=== PATIENT | female | born 1955 | race Two or more races ===

== ENCOUNTER 2018-05-15 17:00 | Inpatient (IN) | payer MEDICAID ==
[~2018-05-15] VITALS: Ht 162.6 cm; Wt 73.9 kg
[2018-05-15] MEDS ORDERED: LORazepam Inj 2mg/ml 1ml IV ONE (17:30)
[2018-05-15 18:12] LABS: APPEARANCE,URINE SLIGHTLY CLOUDY; BILIRUBIN, URINE NEGATIVE (NEGATIVE); COLOR,URINE AMBER; GLUCOSE, URINE (UA) NEGATIVE (NEGATIVE); KETONES,URINE NEGATIVE (NEGATIVE); LEUKOCYTE ESTERASE ,URINE 1+ (NEGATIVE); NITRITE,URINE NEGATIVE (NEGATIVE); PH,URINE 6.5 (4.5-8.0); PROTEIN,URINE NEGATIVE (NEGATIVE); UROBILINOGEN,URINE 1 MG/DL (0.0-1.0)
[2018-05-15 18:16] LABS: BASOPHILS % (AUTO) 1.7 % (0.0-2.0); EOSINOPHILS % (AUTO) 4.9 % (0.0-3.0); HEMOGLOBIN 9.6 G/DL (12.0-16.0); LYMPHOCYTES % (AUTO) 21.8 % (20.0-45.0); MEAN CORPUSCULAR VOLUME 78 FL (80-99); NEUTROPHILS % (AUTO) 63.6 % (45.0-75.0); PLATELET COUNT 728 K/UL (150-450); RED BLOOD COUNT 3.86 M/UL (4.20-5.40); RED CELL DISTRIBUTION WIDTH 17.8 % (11.6-14.8); WHITE BLOOD COUNT 10.4 K/UL (4.8-10.8)
[2018-05-15 18:23] LABS: ANION GAP 8 mmol/L (5-15); BLOOD UREA NITROGEN 7 mg/dL (7-18); CALCIUM 8.7 MG/DL (8.5-10.1); CARBON DIOXIDE 25 MMOL/L (21-32); CHLORIDE 104 MMOL/L (98-107); CREATININE 0.8 MG/DL (0.55-1.30); SODIUM 137 MMOL/L (136-145)
[2018-05-15 18:29] LABS: ALANINE AMINOTRANSFERASE 17 U/L (12-78); ALBUMIN 3.2 G/DL (3.4-5.0); ALBUMIN/GLOBULIN RATIO 0.7 (1.0-2.7); ALKALINE PHOSPHATASE 125 U/L (46-116); ASPARTATE AMINO TRANSFERASE 10 U/L (15-37); BILIRUBIN,TOTAL 0.4 MG/DL (0.2-1.0)
[2018-05-15 19:10] VITALS: BP 145/71
[2018-05-15] MEDS ORDERED: Solu-MEDROL 125mg Inj IVP ONE (19:15)
[2018-05-15] MEDS ORDERED: Ketorolac 30mg Inj IV ONE (19:15)
--- NOTE | 2018-05-15 19:20 | Diagnostic Imaging Report ---
EXAM: CT Head Without Intravenous Contrast CLINICAL HISTORY: WEAK TECHNIQUE: Axial computed tomography images of the head/brain without intravenous contrast. CTDI is 0.15, 70.38 mGy and DLP is 1439 mGy-cm. One or more of the following dose reduction techniques were used: automated exposure control, adjustment of the mA and/or kV according to patient size, use of iterative reconstruction technique. COMPARISON: No relevant prior studies available. FINDINGS: Brain: No CT evidence for acute cortical infarct, however, MRI is more sensitive for the detection of acute ischemic infarct. There is a 3.2 x 4.0 cm prominent CSF space in the left occipital lobe. This may be related to an arachnoid cyst. Differential diagnostic considerations include an area of encephalomalacia. Areas of decreased density in the periventricular white matter which are nonspecific but are likely related to mild small vessel ischemic changes. Small areas of encephalomalacia are suspected in the cerebellum bilaterally. No hemorrhage. Ventricles: Unremarkable. No ventriculomegaly. Bones/joints: Unremarkable. No acute fracture. Soft tissues: Unremarkable. Sinuses: Unremarkable as visualized. No acute sinusitis. Mastoid air cells: Unremarkable as visualized. No mastoid effusion. IMPRESSION: 1. No CT evidence for acute cortical infarct, however, MRI is more sensitive for the detection of acute ischemic infarct. 2. There is a 3.2 x 4.0 cm prominent CSF space in the left occipital lobe. This may be related to an arachnoid cyst. Differential diagnostic considerations include an area of encephalomalacia. 3. Probable small vessel ischemic changes in the periventricular white matter. Small areas of encephalomalacia in the cerebellum bilaterally.
[2018-05-15] MEDS ORDERED: Morphine Sulfate 4mg/ml Inj (IV USE ONLY) IVP ONE (19:45)
[2018-05-15] MEDS ORDERED: Morphine Sulfate 4mg/ml Inj (IV USE ONLY) ONE (22:26)
[2018-05-15 23:00] VITALS: BP 126/81
--- NOTE | 2018-05-15 23:07 | Emergency Room Report ---
History of Present Illness General Chief Complaint: Generalized Weakness Source: Patient Present Illness HPI 63-year-old female presents ED for evaluation. States that she's been feeling weak and has generalized pain in her joints. For several days. History of rheumatoid arthritis. States this feels like a flareup of her rheumatoid arthritis. Pain is 10 out of 10, sharp, nonradiating. Also feels anxious. Denies chest pain or shortness of breath. Denies fevers or chills. No other aggravating relieving factors. Denies any other associated symptoms Allergies: Coded Allergies: No Known Allergies (Unverified , 05/15/18) Patient History Past Medical History: none Past Surgical History: none Pertinent Family History: none Social History: Denies: smoking, alcohol use, drug use Now: No Immunizations: UTD Reviewed Nursing Documentation: PMH: Agreed; PSxH: Agreed Nursing Documentation-PMH Past Medical History: No History, Except For Review of Systems All Other Systems: negative except mentioned in HPI Physical Exam Vital Signs Date Time Temp Pulse Resp B/P (MAP) Pulse Ox O2 Delivery O2 Flow Rate FiO2 05/15/18 17:02 98.1 101 16 152/83 98 Room Air 98.1 Sp02 EP Interpretation: reviewed, normal General Appearance: no apparent distress, alert, GCS 15, non-toxic Head: normocephalic, atraumatic Eyes: bilateral eye normal inspection, bilateral eye PERRL ENT: hearing grossly normal, normal pharynx, no angioedema, normal voice Neck: full range of motion, supple/symm/no masses Respiratory: chest non-tender, lungs clear, normal breath sounds, speaking full sentences Cardiovascular #1: regular rate, rhythm, no edema Cardiovascular #2: 2+ carotid (R), 2+ carotid (L), 2+ radial (R), 2+ radial (L) , 2+ dorsalis pedis (R), 2+ dorsalis pedis (L) Gastrointestinal: normal bowel sounds, non tender, soft, non-distended, no guarding, no rebound Rectal: deferred Genitourinary: normal inspection, no CVA tenderness Musculoskeletal: back normal, normal range of motion, swelling, tender Neurologic: alert, oriented x3, 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, 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 After initial history and physical I ordered labs, IV fluids, UA, pain medication and CT scan Labs - no leukocytosis, Hb/Hct stable. electrolytes ok. CT head - encephalomalacia, no acute process Patient given pain medications, steroids but still continues to have pain and unable to walk Case discussed with Dr. Lawson and he agreed to accept the patient to his service for further care and support I feel this is a highly complex case requiring extensive working including EKG/ Rhythm strip, Xray/CT/US, Blood/urine lab work, repeat exams while in ED, and administration of strong opiates/narcotics for pain control, admission to hospital or close patient follow up. Diagnosis -weakness, rheumatoid arthritis flare Patient admitted to floor in serious condition Labs Test 05/15/18 17:30 05/15/18 18:00 White Blood Count 10.4 K/UL (4.8-10.8) Red Blood Count 3.86 M/UL (4.20-5.40) Hemoglobin 9.6 G/DL (12.0-16.0) Hematocrit 30.0 % (37.0-47.0) Mean Corpuscular Volume 78 FL (80-99) Mean Corpuscular Hemoglobin 25.0 PG (27.0-31.0) Mean Corpuscular Hemoglobin Concent 32.1 G/DL (32.0-36.0) Red Cell Distribution Width 17.8 % (11.6-14.8) Platelet Count 728 K/UL (150-450) Mean Platelet Volume 4.9 FL (6.5-10.1) Neutrophils (%) (Auto) 63.6 % (45.0-75.0) Lymphocytes (%) (Auto) 21.8 % (20.0-45.0) Monocytes (%) (Auto) 8.0 % (1.0-10.0) Eosinophils (%) (Auto) 4.9 % (0.0-3.0) Basophils (%) (Auto) 1.7 % (0.0-2.0) Sodium Level 137 MMOL/L (136-145) Potassium Level 4.0 MMOL/L (3.5-5.1) Chloride Level 104 MMOL/L (98-107) Carbon Dioxide Level 25 MMOL/L (21-32) Anion Gap 8 mmol/L (5-15) Blood Urea Nitrogen 7 mg/dL (7-18) Creatinine 0.8 MG/DL (0.55-1.30) Estimat Glomerular Filtration Rate > 60 mL/min (>60) Glucose Level 116 MG/DL (74-106) Calcium Level 8.7 MG/DL (8.5-10.1) Total Bilirubin 0.4 MG/DL (0.2-1.0) Aspartate Amino Transf (AST/SGOT) 10 U/L (15-37) Alanine Aminotransferase (ALT/SGPT) 17 U/L (12-78) Alkaline Phosphatase 125 U/L (46-116) Total Protein 7.5 G/DL (6.4-8.2) Albumin 3.2 G/DL (3.4-5.0) Globulin 4.3 g/dL Albumin/Globulin Ratio 0.7 (1.0-2.7) Salicylates Level 5.7 ug/mL (2.8-20) Acetaminophen Level < 2 MCG/ML (10-30) Serum Alcohol < 3 mg/dL Urine Color Mary Kay Urine Appearance Slightly cloudy Urine pH 6.5 (4.5-8.0) Urine Specific [place] 1.010 (1.005-1.035) Urine Protein Negative (NEGATIVE) Urine Glucose (UA) Negative (NEGATIVE) Urine Ketones Negative (NEGATIVE) Urine Blood Negative (NEGATIVE) Urine Nitrite Negative (NEGATIVE) Urine Bilirubin Negative (NEGATIVE) Urine Ictotest Negative (NEGATIVE) Urine Urobilinogen 1 MG/DL (0.0-1.0) Urine Leukocyte Esterase 1+ (NEGATIVE) Urine RBC 0 /HPF (0 - 2) Urine WBC 5-10 /HPF (0 - 2) Urine Squamous Epithelial Cells Moderate /LPF (NONE/OCC) Urine Bacteria Few /HPF (NONE) Urine Opiates Screen Negative (NEGATIVE) Urine Barbiturates Screen Negative (NEGATIVE) Phencyclidine (PCP) Screen Negative (NEGATIVE) Urine Amphetamines Screen Negative (NEGATIVE) Urine Benzodiazepines Screen Negative (NEGATIVE) Urine Cocaine Screen Negative (NEGATIVE) Urine Marijuana (THC) Screen Negative (NEGATIVE) CT/MRI/US Diagnostic Results CT/MRI/US Diagnostic Results : Imaging Test Ordered: CT Head Impression 1. No CT evidence for acute cortical infarct, however, MRI is more sensitive for the detection of acute ischemic infarct. 2. There is a 3.2 x 4.0 cm prominent CSF space in the left occipital lobe. This may be related to an arachnoid cyst. Differential diagnostic considerations include an area of encephalomalacia. 3. Probable small vessel ischemic changes in the periventricular white matter. Small areas of encephalomalacia in the cerebellum bilaterally. Last Vital Signs Date Time Temp Pulse Resp B/P (MAP) Pulse Ox O2 Delivery O2 Flow Rate FiO2 05/15/18 19:13 98.1 05/15/18 17:02 101 16 152/83 98 Room Air Status: improved Disposition: ADMITTED INPATIENT Condition: Serious Referrals: [facility],REFERRING (PCP) Aurelio Ramsay MD May 15, 2018 23:07
[2018-05-15] MEDS ORDERED: COMBIVENT RESPIM4 GM IH (23:17)
[2018-05-15] MEDS ORDERED: HYDROXYCHLOROQ200 M1 PO (23:17)
[2018-05-15] MEDS ORDERED: METHOTREXATE2.5 MG PO (23:17)
[2018-05-15] MEDS ORDERED: LIPITOR10 MG ORAL (23:17)
[2018-05-15] MEDS ORDERED: CLOPIDOGREL75 MG ORAL (23:17)
[2018-05-15] MEDS ORDERED: FLUTICASONE PRO16 G1 NASAL (23:17)
[2018-05-15] MEDS ORDERED: METFORMIN HCL1000 M1 ORAL (23:17)
[2018-05-15] MEDS ORDERED: AMITRIPTYLINE100 MG ORAL (23:17)
[2018-05-15] MEDS ORDERED: FOLIC ACID1 MG ORAL (23:17)
[2018-05-15] MEDS ORDERED: NORCO 5-325 TA1 EACH ORAL (23:20)
[2018-05-16] VITALS: BP 135/83
[2018-05-16] MEDS ORDERED: Amitriptyline 100mg tab ORAL SCH
[2018-05-16] MEDS: Heparin 5000 units/ml inj SUBQ SCH ×3 (00:27→21:16)
[2018-05-16] MEDS: Morphine Sulfate 2mg/ml Inj IVP PRN ×3 (00:32→22:36)
[2018-05-16 04:00] VITALS: BP 147/87
[2018-05-16] MEDS: NovoLOG Insulin Flexpen SUBQ SCH ×4 (06:16→21:17)
[2018-05-16 08:07] LABS: BASOPHILS % (AUTO) 0.6 % (0.0-2.0); HEMATOCRIT 29.7 % (37.0-47.0); HEMOGLOBIN 9.1 G/DL (12.0-16.0); LYMPHOCYTES % (AUTO) 15.3 % (20.0-45.0); MEAN CORPUSCULAR VOLUME 75 FL (80-99); MONOCYTES % (AUTO) 0.9 % (1.0-10.0); NEUTROPHILS % (AUTO) 83.3 % (45.0-75.0); PLATELET COUNT 670 K/UL (150-450); RED BLOOD COUNT 3.94 M/UL (4.20-5.40); RED CELL DISTRIBUTION WIDTH 18.2 % (11.6-14.8); WHITE BLOOD COUNT 5.7 K/UL (4.8-10.8)
[2018-05-16 08:54] VITALS: BP 137/78
[2018-05-16] MEDS ORDERED: TREXALL5 MG PO (08:59)
[2018-05-16] MEDS: Flonase Nasal Inhaler 16gm NASAL SCH (09:50)
[2018-05-16] MEDS: Norco 5mg/325mg tab ORAL PRN ×3 (09:51→21:20)
[2018-05-16 10:02] LABS: ANION GAP 10 mmol/L (5-15); BLOOD UREA NITROGEN 10 mg/dL (7-18); CALCIUM 8.7 MG/DL (8.5-10.1); CARBON DIOXIDE 23 MMOL/L (21-32); CHLORIDE 105 MMOL/L (98-107); CREATININE 0.8 MG/DL (0.55-1.30); POTASSIUM 4.4 MMOL/L (3.5-5.1); SODIUM 138 MMOL/L (136-145)
[2018-05-16] MEDS: Albuterol ud Inhalation HHN PRN (10:51)
[2018-05-16 12:00] VITALS: BP 120/69
[2018-05-16] MEDS ORDERED: Influenza Vaccine Quadrivalent 0.5ml IM ONE (12:00)
[2018-05-16] MEDS: Solu-MEDROL 40mg Inj IVP SCH ×2 (13:50→22:36)
--- NOTE | 2018-05-16 14:36 | History and Physical ---
History of Present Illness General Date patient seen: May 16, 2018 Time patient seen: 11:00 Reason for Hospitalization: Generalized Weakness Present Illness HPI 63 year old woman with history of RA, type 2 DM, history of stroke with residual right sided weakness who presents with 2-3 days of bilateral wrist and hand pain and swelling, similar to prior episodes of RA flare. She has responded to prednisone well in the past. Denies fever, chills, chest pain or palpitations. Symptoms improved partially with morphine given in ED. She was also treated with 125mg of IV Solu-Medrol. Allergies: Coded Allergies: No Known Allergies (Unverified , 05/15/18) Medication History Scheduled Amitriptyline HCl (Amitriptyline HCl), 75 MG ORAL BEDTIME, (Reported) Atorvastatin Calcium* (Lipitor*), 10 MG ORAL DAILY, (Reported) Clopidogrel* (Clopidogrel*), 75 MG ORAL DAILY, (Reported) Fluticasone Propionate* (Fluticasone Propionate*), 1 SPRAY NASAL DAILY, ( Reported) Folic Acid* (Folic Acid*), 1 MG ORAL DAILY, (Reported) Hydroxychloroquine Sulfate (Hydroxychloroquine Sulfate), 200 MG PO BID, ( Reported) Metformin Hcl* (Metformin Hcl*), 1,000 MG ORAL BID, (Reported) Methotrexate Sodium ([place]), 12.5 MG PO Q FRIDAY, (Reported) Scheduled PRN Hydrocodone Bit/Acetaminophen 5-325* ([place] 5-325*), 1 TAB ORAL Q4H PRN for For Pain, (Reported) Miscellaneous Medications Ipratropium/Albuterol Sulfate (Combivent Respimat Inhal [place]), 4 GM IH, ( Reported) Discontinued Medications Methotrexate Sodium* (Methotrexate*), 2.5 MG PO, (Reported) Discontinued Reason: Prescription changed Patient History History Provided By: Patient Healthcare decision maker Resuscitation status Full Code Advanced Directive on File Family History Family History: Father with DM Social History Social History: (1) Smoker Review of Systems Eye: Denies: eye pain ENT: Denies: nose pain Respiratory: Denies: cough, shortness of breath Cardiovascular: Denies: chest pain, palpitations Gastrointestinal: Denies: abdominal pain, constipation Genitourinary: Denies: discharge, dysuria Musculoskeletal: Reports: joint pain; Denies: back pain Skin: Denies: rash, change in hair/nails Neurological: Denies: headache, numbness Endocrine: Denies: excessive sweating, flushing Hematologic/Lymphatic: Denies: blood clots, easy bleeding, easy bruising Physical Exam General Appearance: no apparent distress, alert HEENT: normocephalic, atraumatic Neck: normal alignment, supple, normal inspection Respiratory/Chest: chest wall non-tender, lungs clear, normal breath sounds Cardiovascular/Chest: normal peripheral pulses, normal rate, regular rhythm Abdomen: normal bowel sounds, non tender, soft Extremities: no calf tenderness, no edema, no cyanosis 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, alert, oriented x 3, responsive Musculoskeletal: other - Bilateral MCP swelling and severe tenderness, decreased ROM Last 24 Hour Vital Signs Date Time Temp Pulse Resp B/P (MAP) Pulse Ox O2 Delivery O2 Flow Rate FiO2 05/16/18 12:00 97.5 95 18 120/69 (86) 96 97.5 05/16/18 09:00 Room Air 05/16/18 08:54 97.7 105 20 137/78 (97) 94 97.7 05/16/18 08:15 105 16 Room Air 05/16/18 04:00 97.8 113 18 147/87 (107) 96 97.8 05/16/18 01:30 Room Air 05/16/18 00:00 98.2 100 18 135/83 (100) 93 98.2 05/15/18 23:00 98.1 105 18 126/81 (96) 97 98.1 05/15/18 22:55 98.1 104 17 143/71 98 Room Air 208.6 05/15/18 19:13 98.1 05/15/18 19:10 98.1 103 17 145/71 98 Room Air 98.1 05/15/18 17:02 98.1 101 16 152/83 98 Room Air 98.1 Intake and Output 05/15/18 05/16/18 19:00 07:00 Intake Total 1700 ml Output Total 400 ml Balance 1300 ml Intake Oral 700 ml IV Total 1000 ml Output Urine Total 400 ml Laboratory Tests Test 05/15/18 17:30 05/15/18 18:00 05/16/18 07:00 White Blood Count 10.4 K/UL (4.8-10.8) 5.7 K/UL (4.8-10.8) Red Blood Count 3.86 M/UL (4.20-5.40) L 3.94 M/UL (4.20-5.40) L Hemoglobin 9.6 G/DL (12.0-16.0) L 9.1 G/DL (12.0-16.0) L Hematocrit 30.0 % (37.0-47.0) L 29.7 % (37.0-47.0) L Mean Corpuscular Volume 78 FL (80-99) L 75 FL (80-99) L Mean Corpuscular Hemoglobin 25.0 PG (27.0-31.0) L 23.2 PG (27.0-31.0) L Mean Corpuscular Hemoglobin Concent 32.1 G/DL (32.0-36.0) 30.8 G/DL (32.0-36.0) L Red Cell Distribution Width 17.8 % (11.6-14.8) H 18.2 % (11.6-14.8) H Platelet Count 728 K/UL (150-450) H 670 K/UL (150-450) H Mean Platelet Volume 4.9 FL (6.5-10.1) L 4.9 FL (6.5-10.1) L Neutrophils (%) (Auto) 63.6 % (45.0-75.0) 83.3 % (45.0-75.0) H Lymphocytes (%) (Auto) 21.8 % (20.0-45.0) 15.3 % (20.0-45.0) L Monocytes (%) (Auto) 8.0 % (1.0-10.0) 0.9 % (1.0-10.0) L Eosinophils (%) (Auto) 4.9 % (0.0-3.0) H 0.0 % (0.0-3.0) Basophils (%) (Auto) 1.7 % (0.0-2.0) 0.6 % (0.0-2.0) Sodium Level 137 MMOL/L (136-145) 138 MMOL/L (136-145) Potassium Level 4.0 MMOL/L (3.5-5.1) 4.4 MMOL/L (3.5-5.1) Chloride Level 104 MMOL/L (98-107) 105 MMOL/L (98-107) Carbon Dioxide Level 25 MMOL/L (21-32) 23 MMOL/L (21-32) Anion Gap 8 mmol/L (5-15) 10 mmol/L (5-15) Blood Urea Nitrogen 7 mg/dL (7-18) 10 mg/dL (7-18) Creatinine 0.8 MG/DL (0.55-1.30) 0.8 MG/DL (0.55-1.30) Estimat Glomerular Filtration Rate > 60 mL/min (>60) > 60 mL/min (>60) Glucose Level 116 MG/DL (74-106) H 210 MG/DL (74-106) H Calcium Level 8.7 MG/DL (8.5-10.1) 8.7 MG/DL (8.5-10.1) Total Bilirubin 0.4 MG/DL (0.2-1.0) Aspartate Amino Transf (AST/SGOT) 10 U/L (15-37) L Alanine Aminotransferase (ALT/SGPT) 17 U/L (12-78) Alkaline Phosphatase 125 U/L (46-116) H Total Protein 7.5 G/DL (6.4-8.2) Albumin 3.2 G/DL (3.4-5.0) L Globulin 4.3 g/dL Albumin/Globulin Ratio 0.7 (1.0-2.7) L Salicylates Level 5.7 ug/mL (2.8-20) Acetaminophen Level < 2 MCG/ML (10-30) L Serum Alcohol < 3 mg/dL Urine Color Mary Kay Urine Appearance Slightly cloudy Urine pH 6.5 (4.5-8.0) Urine Specific [place] 1.010 (1.005-1.035) Urine Protein Negative (NEGATIVE) Urine Glucose (UA) Negative (NEGATIVE) Urine Ketones Negative (NEGATIVE) Urine Blood Negative (NEGATIVE) Urine Nitrite Negative (NEGATIVE) Urine Bilirubin Negative (NEGATIVE) Urine Ictotest Negative (NEGATIVE) Urine Urobilinogen 1 MG/DL (0.0-1.0) H Urine Leukocyte Esterase 1+ (NEGATIVE) H Urine RBC 0 /HPF (0 - 2) Urine WBC 5-10 /HPF (0 - 2) H Urine Squamous Epithelial Cells Moderate /LPF (NONE/OCC) H Urine Bacteria Few /HPF (NONE) Urine Opiates Screen Negative (NEGATIVE) Urine Barbiturates Screen Negative (NEGATIVE) Phencyclidine (PCP) Screen Negative (NEGATIVE) Urine Amphetamines Screen Negative (NEGATIVE) Urine Benzodiazepines Screen Negative (NEGATIVE) Urine Cocaine Screen Negative (NEGATIVE) Urine Marijuana (THC) Screen Negative (NEGATIVE) Hemoglobin A1c 7.1 % (4.3-6.0) H Height (Feet): 5 Height (Inches): 4.00 Weight (Pounds): 163 Medications Current Medications Medications (Trade) Dose Ordered Sig/Ashlyn Route PRN Reason Start Time Stop Time Status Last Admin Dose Admin Acetaminophen (Tylenol) 650 mg Q4H PRN ORAL Mild Pain/Temp > 100.5 05/15/18 23:45 06/14/18 23:44 Acetaminophen/ Hydrocodone Bitart ([place] 5/325) 1 tab Q4H PRN ORAL Moderate Pain (Pain Scale 4-6) 05/15/18 23:45 05/22/18 23:44 Acetaminophen/ Hydrocodone Bitart ([place] 5/325) 2 tab Q4H PRN ORAL Severe Pain (Pain Scale 7-10) 05/15/18 23:45 05/22/18 23:44 05/16/18 13:52 Albuterol Sulfate (Proventil) 2.5 mg Q6H PRN HHN Shortness of Breath 05/16/18 03:30 05/21/18 03:29 05/16/18 10:51 Amitriptyline HCl (Elavil) 75 mg BEDTIME ORAL 05/16/18 00:00 06/15/18 00:00 05/16/18 00:26 Atorvastatin Calcium (Lipitor) 10 mg DAILY ORAL 05/16/18 09:00 06/15/18 08:59 05/16/18 09:51 Clopidogrel Bisulfate (Plavix) 75 mg DAILY ORAL 05/16/18 09:00 06/15/18 08:59 05/16/18 09:53 Dextrose (Dextrose 50%) 25 ml Q30M PRN IV Hypoglycemia 05/15/18 23:45 06/14/18 23:44 Dextrose (Dextrose 50%) 50 ml Q30M PRN IV Hypoglycemia 05/15/18 23:45 06/14/18 23:44 Fluticasone Propionate (Flonase) 1 spray DAILY NASAL 05/16/18 09:00 06/15/18 08:59 05/16/18 09:50 Folic Acid (Folate) 1 mg DAILY ORAL 05/16/18 09:00 06/15/18 08:59 05/16/18 09:52 Heparin Sodium (Porcine) (Heparin 5000 units/ml) 5,000 units EVERY 12 HOURS SUBQ 05/16/18 00:00 06/15/18 00:00 05/16/18 09:52 Hydroxychloroquine Sulfate (Plaquenil) 200 mg BID ORAL 05/16/18 09:00 06/15/18 08:59 05/16/18 09:50 Insulin Aspart (NovoLOG) BEFORE MEALS AND HS SUBQ 05/16/18 06:30 06/15/18 06:29 05/16/18 12:46 Methotrexate (metHOTREXate) 12.5 mg Sa@0900 ORAL 05/16/18 09:00 05/21/18 08:59 05/16/18 10:18 Methylprednisolone Sodium Succinate (Solu-MEDROL) 40 mg EVERY 12 HOURS IVP 05/16/18 14:00 06/15/18 13:59 05/16/18 13:50 Morphine Sulfate (Morphine Sulfate) 1 mg Q3H PRN IVP Severe Breakthru Pain (>7) 05/15/18 23:45 05/22/18 23:44 05/16/18 06:19 Assessment/Plan Problem List: (1) Flare of rheumatoid arthritis ICD Codes: M06.9 - Rheumatoid arthritis, unspecified SNOMED: [id number] Assessment/Plan Acute flare up of rheumatoid arthritis, admit to medical service for IV steroids. Start Solu-Medrol 40mg IV bid along with morphine prn for severe pain. PT/OT consult history of DM2, sugars likely will be uncontrolled due to steroids, will hold metformin and start lispro coverage. May need to start Lantus if worsening hyperglycemia history of CVA with mild chronic right sided weakness, continue Plavix current smoker, cessation advised, nicotine patch prn VTE PPx heparin SC Full Code Patient will require a hospitalization crossing 2 midnights in order to get IV steroids and close monitoring. Linus Nelson MD May 16, 2018 14:36
[2018-05-16 16:15] VITALS: BP 132/75
--- NOTE | 2018-05-16 17:07 | Consultation ---
Consult Note Consult Note HEMATOLOGY-ONCOLOGY CONSULTATION REQUESTING PHYSICIAN: Shaq Castañeda MD DATE OF CONSULTATION: 05/16/2018 REASON FOR CONSULTATION: Evaluation of anemia and thrombocytosis HPI 63 year old woman with history of RA, type 2 DM, history of stroke with residual right sided weakness who presents with 2-3 days of bilateral wrist and hand pain and swelling, similar to prior episodes of RA flare. She has responded to prednisone well in the past. Denies fever, chills, chest pain or palpitations. Symptoms improved partially with morphine given in ED. She was also treated with 125mg of IV Solu-Medrol. I have been consulted for the evaluation and management of anemia and thrombocytosis. Current hgb 9.1 and plt at 670. Will order anemia w/u, CML, and JAK2. Allergies: Coded Allergies: No Known Allergies (Unverified , 05/15/18) Medication History Scheduled Amitriptyline HCl (Amitriptyline HCl), 75 MG ORAL BEDTIME, (Reported) Atorvastatin Calcium* (Lipitor*), 10 MG ORAL DAILY, (Reported) Clopidogrel* (Clopidogrel*), 75 MG ORAL DAILY, (Reported) Fluticasone Propionate* (Fluticasone Propionate*), 1 SPRAY NASAL DAILY, ( Reported) Folic Acid* (Folic Acid*), 1 MG ORAL DAILY, (Reported) Hydroxychloroquine Sulfate (Hydroxychloroquine Sulfate), 200 MG PO BID, ( Reported) Metformin Hcl* (Metformin Hcl*), 1,000 MG ORAL BID, (Reported) Methotrexate Sodium (Trexall), 12.5 MG PO Q FRIDAY, (Reported) Scheduled PRN Hydrocodone Bit/Acetaminophen 5-325* (Royal 5-325*), 1 TAB ORAL Q4H PRN for For Pain, (Reported) Miscellaneous Medications Ipratropium/Albuterol Sulfate (Combivent Respimat Inhal [place]), 4 GM IH, ( Reported) Discontinued Medications Methotrexate Sodium* (Methotrexate*), 2.5 MG PO, (Reported) Discontinued Reason: Prescription changed Patient History History Provided By: Patient Healthcare decision maker Resuscitation status Full Code Advanced Directive on File Family History Family History: Father with DM Social History Social History: (1) Smoker Review of Systems Eye: Denies: eye pain ENT: Denies: nose pain Respiratory: Denies: cough, shortness of breath Cardiovascular: Denies: chest pain, palpitations Gastrointestinal: Denies: abdominal pain, constipation Genitourinary: Denies: discharge, dysuria Musculoskeletal: Reports: joint pain; Denies: back pain Skin: Denies: rash, change in hair/nails Neurological: Denies: headache, numbness Endocrine: Denies: excessive sweating, flushing Hematologic/Lymphatic: Denies: blood clots, easy bleeding, easy bruising Physical Exam General Appearance: no apparent distress, alert HEENT: normocephalic, atraumatic Neck: normal alignment, supple, normal inspection Respiratory/Chest: chest wall non-tender, lungs clear, normal breath sounds Cardiovascular/Chest: normal peripheral pulses, normal rate, regular rhythm Abdomen: normal bowel sounds, non tender, soft Extremities: no calf tenderness, no edema, no cyanosis 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, alert, oriented x 3, responsive Musculoskeletal: other - Bilateral MCP swelling and severe tenderness, decreased ROM Last 24 Hour Vital Signs Date Time Temp Pulse Resp B/P (MAP) Pulse Ox O2 Delivery O2 Flow Rate FiO2 05/16/18 12:00 97.5 95 18 120/69 (86) 96 97.5 05/16/18 09:00 Room Air 05/16/18 08:54 97.7 105 20 137/78 (97) 94 97.7 05/16/18 08:15 105 16 Room Air 05/16/18 04:00 97.8 113 18 147/87 (107) 96 97.8 05/16/18 01:30 Room Air 05/16/18 00:00 98.2 100 18 135/83 (100) 93 98.2 05/15/18 23:00 98.1 105 18 126/81 (96) 97 98.1 05/15/18 22:55 98.1 104 17 143/71 98 Room Air 208.6 05/15/18 19:13 98.1 05/15/18 19:10 98.1 103 17 145/71 98 Room Air 98.1 05/15/18 17:02 98.1 101 16 152/83 98 Room Air 98.1 Intake and Output 05/15/18 05/16/18 19:00 07:00 Intake Total 1700 ml Output Total 400 ml Balance 1300 ml Intake Oral 700 ml IV Total 1000 ml Output Urine Total 400 ml Laboratory Tests Test 05/15/18 17:30 05/15/18 18:00 05/16/18 07:00 White Blood Count 10.4 K/UL (4.8-10.8) 5.7 K/UL (4.8-10.8) Red Blood Count 3.86 M/UL (4.20-5.40) L 3.94 M/UL (4.20-5.40) L Hemoglobin 9.6 G/DL (12.0-16.0) L 9.1 G/DL (12.0-16.0) L Hematocrit 30.0 % (37.0-47.0) L 29.7 % (37.0-47.0) L Mean Corpuscular Volume 78 FL (80-99) L 75 FL (80-99) L Mean Corpuscular Hemoglobin 25.0 PG (27.0-31.0) L 23.2 PG (27.0-31.0) L Mean Corpuscular Hemoglobin Concent 32.1 G/DL (32.0-36.0) 30.8 G/DL (32.0-36.0) L Red Cell Distribution Width 17.8 % (11.6-14.8) H 18.2 % (11.6-14.8) H Platelet Count 728 K/UL (150-450) H 670 K/UL (150-450) H Mean Platelet Volume 4.9 FL (6.5-10.1) L 4.9 FL (6.5-10.1) L Neutrophils (%) (Auto) 63.6 % (45.0-75.0) 83.3 % (45.0-75.0) H Lymphocytes (%) (Auto) 21.8 % (20.0-45.0) 15.3 % (20.0-45.0) L Monocytes (%) (Auto) 8.0 % (1.0-10.0) 0.9 % (1.0-10.0) L Eosinophils (%) (Auto) 4.9 % (0.0-3.0) H 0.0 % (0.0-3.0) Basophils (%) (Auto) 1.7 % (0.0-2.0) 0.6 % (0.0-2.0) Sodium Level 137 MMOL/L (136-145) 138 MMOL/L (136-145) Potassium Level 4.0 MMOL/L (3.5-5.1) 4.4 MMOL/L (3.5-5.1) Chloride Level 104 MMOL/L (98-107) 105 MMOL/L (98-107) Carbon Dioxide Level 25 MMOL/L (21-32) 23 MMOL/L (21-32) Anion Gap 8 mmol/L (5-15) 10 mmol/L (5-15) Blood Urea Nitrogen 7 mg/dL (7-18) 10 mg/dL (7-18) Creatinine 0.8 MG/DL (0.55-1.30) 0.8 MG/DL (0.55-1.30) Estimat Glomerular Filtration Rate > 60 mL/min (>60) > 60 mL/min (>60) Glucose Level 116 MG/DL (74-106) H 210 MG/DL (74-106) H Calcium Level 8.7 MG/DL (8.5-10.1) 8.7 MG/DL (8.5-10.1) Total Bilirubin 0.4 MG/DL (0.2-1.0) Aspartate Amino Transf (AST/SGOT) 10 U/L (15-37) L Alanine Aminotransferase (ALT/SGPT) 17 U/L (12-78) Alkaline Phosphatase 125 U/L (46-116) H Total Protein 7.5 G/DL (6.4-8.2) Albumin 3.2 G/DL (3.4-5.0) L Globulin 4.3 g/dL Albumin/Globulin Ratio 0.7 (1.0-2.7) L Salicylates Level 5.7 ug/mL (2.8-20) Acetaminophen Level < 2 MCG/ML (10-30) L Serum Alcohol < 3 mg/dL Urine Color [place] Urine Appearance Slightly cloudy Urine pH 6.5 (4.5-8.0) Urine Specific [place] 1.010 (1.005-1.035) Urine Protein Negative (NEGATIVE) Urine Glucose (UA) Negative (NEGATIVE) Urine Ketones Negative (NEGATIVE) Urine Blood Negative (NEGATIVE) Urine Nitrite Negative (NEGATIVE) Urine Bilirubin Negative (NEGATIVE) Urine Ictotest Negative (NEGATIVE) Urine Urobilinogen 1 MG/DL (0.0-1.0) H Urine Leukocyte Esterase 1+ (NEGATIVE) H Urine RBC 0 /HPF (0 - 2) Urine WBC 5-10 /HPF (0 - 2) H Urine Squamous Epithelial Cells Moderate /LPF (NONE/OCC) H Urine Bacteria Few /HPF (NONE) Urine Opiates Screen Negative (NEGATIVE) Urine Barbiturates Screen Negative (NEGATIVE) Phencyclidine (PCP) Screen Negative (NEGATIVE) Urine Amphetamines Screen Negative (NEGATIVE) Urine Benzodiazepines Screen Negative (NEGATIVE) Urine Cocaine Screen Negative (NEGATIVE) Urine Marijuana (THC) Screen Negative (NEGATIVE) Hemoglobin A1c 7.1 % (4.3-6.0) H Height (Feet): 5 Height (Inches): 4.00 Weight (Pounds): 163 Medications Current Medications Medications (Trade) Dose Ordered Sig/Ashlyn Route PRN Reason Start Time Stop Time Status Last Admin Dose Admin Acetaminophen (Tylenol) 650 mg Q4H PRN ORAL Mild Pain/Temp > 100.5 05/15/18 23:45 06/14/18 23:44 Acetaminophen/ Hydrocodone Bitart (Royal 5/325) 1 tab Q4H PRN ORAL Moderate Pain (Pain Scale 4-6) 05/15/18 23:45 05/22/18 23:44 Acetaminophen/ Hydrocodone Bitart (Royal 5/325) 2 tab Q4H PRN ORAL Severe Pain (Pain Scale 7-10) 05/15/18 23:45 05/22/18 23:44 05/16/18 13:52 Albuterol Sulfate (Proventil) 2.5 mg Q6H PRN HHN Shortness of Breath 05/16/18 03:30 05/21/18 03:29 05/16/18 10:51 Amitriptyline HCl (Elavil) 75 mg BEDTIME ORAL 05/16/18 00:00 06/15/18 00:00 05/16/18 00:26 Atorvastatin Calcium (Lipitor) 10 mg DAILY ORAL 05/16/18 09:00 06/15/18 08:59 05/16/18 09:51 Clopidogrel Bisulfate (Plavix) 75 mg DAILY ORAL 05/16/18 09:00 06/15/18 08:59 05/16/18 09:53 Dextrose (Dextrose 50%) 25 ml Q30M PRN IV Hypoglycemia 05/15/18 23:45 11/4/18 23:44 Dextrose (Dextrose 50%) 50 ml Q30M PRN IV Hypoglycemia 05/15/18 23:45 06/14/18 23:44 Fluticasone Propionate (Flonase) 1 spray DAILY NASAL 05/16/18 09:00 06/15/18 08:59 05/16/18 09:50 Folic Acid (Folate) 1 mg DAILY ORAL 05/16/18 09:00 06/15/18 08:59 05/16/18 09:52 Heparin Sodium (Porcine) (Heparin 5000 units/ml) 5,000 units EVERY 12 HOURS SUBQ 05/16/18 00:00 06/15/18 00:00 05/16/18 09:52 Hydroxychloroquine Sulfate (Plaquenil) 200 mg BID ORAL 05/16/18 09:00 06/15/18 08:59 05/16/18 09:50 Insulin Aspart (NovoLOG) BEFORE MEALS AND HS SUBQ 05/16/18 06:30 06/15/18 06:29 05/16/18 12:46 Methotrexate (metHOTREXate) 12.5 mg Sa@0900 ORAL 05/16/18 09:00 05/21/18 08:59 05/16/18 10:18 Methylprednisolone Sodium Succinate (Solu-MEDROL) 40 mg EVERY 12 HOURS IVP 05/16/18 14:00 06/15/18 13:59 05/16/18 13:50 Morphine Sulfate (Morphine Sulfate) 1 mg Q3H PRN IVP Severe Breakthru Pain (>7) 05/15/18 23:45 05/22/18 23:44 05/16/18 06:19 Assessment/Plan # Anemia of iron deficiency or chronic disease. --> Anemia w/u has been ordered. --> currently no evidence of hemolysis noted --> Hgb goal above 7 # Thrombocytosis. Reactive process and will improve once exacerbant is removed. --> Will order JAK2, and peripheral smear --> Cont to monitor PLT count for improvement # RA flare up. Acute flare up of rheumatoid arthritis, admit to medical service for IV steroids --> Solu-Medrol 40mg IV bid along with morphine prn for severe pain. PT/OT consult # DM2, sugars likely will be uncontrolled due to steroids, will hold metformin and start lispro coverage. --> May need to start Lantus if worsening hyperglycemia # History of CVA with mild chronic right sided weakness, continue Plavix # Current smoker, cessation advised, nicotine patch prn I GREATLY APPRECIATE THE CONSULTATION. Lauro Cai MD May 16, 2018 17:06
[2018-05-16 20:00] VITALS: BP 137/71
[2018-05-16 22:24] LABS: % IRON SATURATION 9 % (15-50); IRON 25 ug/dL (50-175); TOTAL IRON BINDING CAPACITY 289 ug/dL (250-450)
[2018-05-16 23:23] LABS: FERRITIN 16 NG/ML (8-388)
[2018-05-17] VITALS (7 sets, daily range): BP systolic 130–158; BP diastolic 71–89
[2018-05-17] MEDS: Norco 5mg/325mg tab ORAL PRN ×4 (06:45→18:30)
[2018-05-17] MEDS: NovoLOG Insulin Flexpen SUBQ SCH ×4 (06:46→21:03)
[2018-05-17 07:25] LABS: HEMATOCRIT 28.8 % (37.0-47.0); HEMOGLOBIN 9.1 G/DL (12.0-16.0); MEAN CORPUSCULAR VOLUME 75 FL (80-99); PLATELET COUNT 711 K/UL (150-450); RED BLOOD COUNT 3.85 M/UL (4.20-5.40); RED CELL DISTRIBUTION WIDTH 18.2 % (11.6-14.8); WHITE BLOOD COUNT 16.8 K/UL (4.8-10.8)
[2018-05-17 07:54] LABS: ANION GAP 9 mmol/L (5-15); BLOOD UREA NITROGEN 16 mg/dL (7-18); CALCIUM 8.8 MG/DL (8.5-10.1); CARBON DIOXIDE 26 MMOL/L (21-32); CHLORIDE 105 MMOL/L (98-107); CREATININE 0.8 MG/DL (0.55-1.30); POTASSIUM 4.4 MMOL/L (3.5-5.1); SODIUM 140 MMOL/L (136-145)
[2018-05-17] MEDS: Solu-MEDROL 40mg Inj IVP SCH ×2 (09:03→20:56)
[2018-05-17] MEDS: Flonase Nasal Inhaler 16gm NASAL SCH (09:03)
[2018-05-17] MEDS: Heparin 5000 units/ml inj SUBQ SCH ×2 (09:05→20:58)
--- NOTE | 2018-05-17 13:01 | General Progress Note ---
Assessment/Plan Problem List: (1) Flare of rheumatoid arthritis ICD Codes: M06.9 - Rheumatoid arthritis, unspecified SNOMED: [id number] Assessment/Plan Acute flare up of rheumatoid arthritis with bilateral wrist and right ankle involvement, markedly improved with Solu-Medrol, working with with physical therapy today, ambulating with walker. Will look to start tapering steroids tomorrow. history of DM2, acceptable glycemic control, continue to hold metformin and give lispro coverage. No need for Lantus at this time. history of CVA with mild chronic right sided weakness, continue Plavix and Statin current smoker, cessation advised, nicotine patch prn VTE PPx heparin sc Full Code Dispo: Likely home in next 24-48 hours Subjective Date patient seen: May 17, 2018 Time patient seen: 12:30 ROS Limited/Unobtainable: No Constitutional: Denies: fever HEENT: Denies: blurred vision Cardiovascular: Denies: chest pain Respiratory: Denies: cough, orthopnea, shortness of breath Gastrointestinal/Abdominal: Denies: abdomen distended, abdominal pain Genitourinary: Reports: burning Neurologic/Psychiatric: Denies: anxiety Hematologic/Lymphatic: Denies: anemia, easy bleeding Allergies: Coded Allergies: No Known Allergies (Unverified , 05/15/18) Subjective Medical followup for acute rheumatoid arthritis flare, swelling and pain in bilateral wrists and right ankle are improved. Not requiring morphine. Also reports mild dysuria. Objective Last 24 Hour Vital Signs Date Time Temp Pulse Resp B/P (MAP) Pulse Ox O2 Delivery O2 Flow Rate FiO2 05/17/18 10:19 98.2 05/17/18 08:00 98.2 84 18 130/71 (90) 98 98.2 05/17/18 07:28 94 17 Room Air 21 05/17/18 07:15 98.0 05/17/18 06:45 98.0 05/17/18 04:00 98.0 90 20 142/77 (98) 99 98.0 05/17/18 00:00 97.8 87 19 133/89 (104) 97 97.8 05/16/18 23:06 97.9 05/16/18 21:50 97.9 05/16/18 21:20 97.9 05/16/18 21:00 Room Air 05/16/18 20:00 98.1 85 20 137/71 (93) 98 98.1 05/16/18 19:11 97 18 Room Air 21 05/16/18 16:15 97.9 85 20 132/75 (94) 94 97.9 Intake and Output 05/16/18 05/17/18 19:00 07:00 Intake Total 1320 ml 1080 ml Balance 1320 ml 1080 ml Intake Oral 1320 ml 1080 ml # Voids 2 5 # Bowel Movements 1 Laboratory Tests 05/16/18 20:40: Reticulocyte Count 1.2, Haptoglobin [Pending], Fibrinogen 458H, Iron Level 25L, Total Iron Binding Capacity 289, Percent Iron Saturation 9L, Unsaturated Iron Binding 264, Ferritin 16, Vitamin B12 Level 408, Folate 17.3, Hepatitis A IgM Antibody [Pending], Hepatitis B Surface Antigen [Pending], Hepatitis B Core IgM Antibody [Pending], Hepatitis C Antibody [Pending], HIV (1&2) Antibody Rapid Negative 05/17/18 06:30: White Blood Count 16.8#H, Red Blood Count 3.85L, Hemoglobin 9.1L, Hematocrit 28.8L, Mean Corpuscular Volume 75L, Mean Corpuscular Hemoglobin 23.6L, Mean Corpuscular Hemoglobin Concent 31.6L, Red Cell Distribution Width 18.2H, Platelet Count 711H, Mean Platelet Volume 4.7L, Neutrophils (%) (Auto) , Lymphocytes (%) (Auto) , Monocytes (%) (Auto) , Eosinophils (%) (Auto) , Basophils (%) (Auto) , Differential Total Cells Counted 100, Neutrophils % ( Manual) 85H, Lymphocytes % (Manual) 10L, Monocytes % (Manual) 5, Eosinophils % ( Manual) 0, Basophils % (Manual) 0, Band Neutrophils 0, Platelet Estimate IncreasedH, Platelet Morphology Normal, Hypochromasia 1+, Anisocytosis 2+, Microcytosis 1+, Sodium Level 140, Potassium Level 4.4, Chloride Level 105, Carbon Dioxide Level 26, Anion Gap 9, Blood Urea Nitrogen 16, Creatinine 0.8, Estimat Glomerular Filtration Rate > 60, Glucose Level 196H, Calcium Level 8.8 Height (Feet): 5 Height (Inches): 4.00 Weight (Pounds): 163 General Appearance: no apparent distress, alert Neck: supple, normal inspection Cardiovascular: normal rate, regular rhythm Respiratory/Chest: lungs clear, normal breath sounds Abdomen: non tender, soft, no organomegaly 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
[2018-05-17 13:31] LABS: APPEARANCE,URINE CLEAR; BILIRUBIN, URINE NEGATIVE (NEGATIVE); COLOR,URINE PALE YELLOW; GLUCOSE, URINE (UA) NEGATIVE (NEGATIVE); KETONES,URINE NEGATIVE (NEGATIVE); LEUKOCYTE ESTERASE ,URINE NEGATIVE (NEGATIVE); NITRITE,URINE NEGATIVE (NEGATIVE); PH,URINE 7 (4.5-8.0); PROTEIN,URINE NEGATIVE (NEGATIVE); UROBILINOGEN,URINE NORMAL MG/DL (0.0-1.0)
--- NOTE | 2018-05-17 19:46 | General Progress Note ---
Assessment/Plan Status: stable Assessment/Plan # Anemia of iron deficiency. --> Anemia w/u has been reviewed. Will trend CBC as needed. --> currently no evidence of hemolysis noted --> Ferritin at 16 --> Hgb goal above 7 --> Pt on folic acid # Thrombocytosis. Reactive process and will improve once exacerbant is removed. --> JAK2 pending, peripheral smear has been reviewed, no evidence of hemolysis --> Cont to monitor PLT count for improvement # Leukocytosis. --> Cont to monitor WBC for improvement. --> Currently, not on abx # RA flare up. Acute flare up of rheumatoid arthritis, admit to medical service for IV steroids --> Solu-Medrol 40mg IV bid along with morphine prn for severe pain. PT/OT consult # DM2, sugars likely will be uncontrolled due to steroids, will hold metformin and start lispro coverage. --> May need to start Lantus if worsening hyperglycemia # History of CVA with mild chronic right sided weakness, continue Plavix # Current smoker, cessation advised, nicotine patch prn I GREATLY APPRECIATE THE CONSULTATION. Subjective Date patient seen: May 17, 2018 ROS Limited/Unobtainable: Yes Hematologic/Lymphatic: Reports: anemia Allergies: Coded Allergies: No Known Allergies (Unverified , 05/15/18) Subjective Pt awake and alert. WBC at 16.8,UA ordered. H/H stable. Objective Last 24 Hour Vital Signs Date Time Temp Pulse Resp B/P (MAP) Pulse Ox O2 Delivery O2 Flow Rate FiO2 05/17/18 16:00 97.7 92 18 158/88 (111) 95 97.7 05/17/18 12:00 98.3 66 20 140/80 (100) 100 98.3 05/17/18 10:19 98.2 05/17/18 09:00 Room Air 05/17/18 08:00 98.2 84 18 130/71 (90) 98 98.2 05/17/18 07:28 94 17 Room Air 21 05/17/18 07:15 98.0 05/17/18 06:45 98.0 05/17/18 04:00 98.0 90 20 142/77 (98) 99 98.0 05/17/18 00:00 97.8 87 19 133/89 (104) 97 97.8 05/16/18 23:06 97.9 05/16/18 21:50 97.9 05/16/18 21:20 97.9 05/16/18 21:00 Room Air 05/16/18 20:00 98.1 85 20 137/71 (93) 98 98.1 Intake and Output 05/16/18 05/17/18 19:00 07:00 Intake Total 1320 ml 1080 ml Balance 1320 ml 1080 ml Intake Oral 1320 ml 1080 ml # Voids 2 5 # Bowel Movements 1 Laboratory Tests 05/16/18 20:40: Reticulocyte Count 1.2, Haptoglobin [Pending], Fibrinogen 458H, Iron Level 25L, Total Iron Binding Capacity 289, Percent Iron Saturation 9L, Unsaturated Iron Binding 264, Ferritin 16, Vitamin B12 Level 408, Folate 17.3, Hepatitis A IgM Antibody [Pending], Hepatitis B Surface Antigen [Pending], Hepatitis B Core IgM Antibody [Pending], Hepatitis C Antibody [Pending], HIV (1&2) Antibody Rapid Negative 05/17/18 06:30: White Blood Count 16.8#H, Red Blood Count 3.85L, Hemoglobin 9.1L, Hematocrit 28.8L, Mean Corpuscular Volume 75L, Mean Corpuscular Hemoglobin 23.6L, Mean Corpuscular Hemoglobin Concent 31.6L, Red Cell Distribution Width 18.2H, Platelet Count 711H, Mean Platelet Volume 4.7L, Neutrophils (%) (Auto) , Lymphocytes (%) (Auto) , Monocytes (%) (Auto) , Eosinophils (%) (Auto) , Basophils (%) (Auto) , Differential Total Cells Counted 100, Neutrophils % ( Manual) 85H, Lymphocytes % (Manual) 10L, Monocytes % (Manual) 5, Eosinophils % ( Manual) 0, Basophils % (Manual) 0, Band Neutrophils 0, Platelet Estimate IncreasedH, Platelet Morphology Normal, Hypochromasia 1+, Anisocytosis 2+, Microcytosis 1+, Sodium Level 140, Potassium Level 4.4, Chloride Level 105, Carbon Dioxide Level 26, Anion Gap 9, Blood Urea Nitrogen 16, Creatinine 0.8, Estimat Glomerular Filtration Rate > 60, Glucose Level 196H, Calcium Level 8.8 05/17/18 12:56: Urine Color Pale yellow, Urine Appearance Clear, Urine pH 7, Urine Specific [place] 1.010, Urine Protein Negative, Urine Glucose (UA) Negative, Urine Ketones Negative, Urine Blood Negative, Urine Nitrite Negative, Urine Bilirubin Negative, Urine Urobilinogen Normal, Urine Leukocyte Esterase Negative Height (Feet): 5 Height (Inches): 4.00 Weight (Pounds): 163 General Appearance: no apparent distress EENT: PERRL/EOMI Neck: normal alignment Cardiovascular: normal peripheral pulses Respiratory/Chest: no respiratory distress Abdomen: soft Lauro Cai MD May 17, 2018 19:46
[2018-05-17] MEDS: Morphine Sulfate 2mg/ml Inj IVP PRN (20:57)
[2018-05-17] MEDS: Docusate 100mg cap ORAL SCH (22:41)
[2018-05-18 04:00] VITALS: BP 137/77
[2018-05-18] MEDS: Norco 5mg/325mg tab ORAL PRN ×3 (06:40→16:53)
[2018-05-18] MEDS: NovoLOG Insulin Flexpen SUBQ SCH ×4 (06:44→21:02)
--- NOTE | 2018-05-18 07:06 | General Progress Note ---
Assessment/Plan Assessment/Plan # Anemia of iron deficiency. cause yet unknown but ferritin <50, requires iron supplementation --> Anemia w/u has been reviewed. Will trend CBC as needed. --> currently no evidence of hemolysis noted --> Ferritin at 16 --> Hgb goal above 7, tranfuse as needed --> IV iron x 5 days IV has been started --> Pt on folic acid --> Consider GI eval # Thrombocytosis. Reactive process and will improve once exacerbant is removed. --> JAK2 pending, peripheral smear has been reviewed, no evidence of hemolysis --> Cont to monitor PLT count for improvement # Leukocytosis. --> Cont to monitor WBC for improvement. --> Currently, not on abx # RA flare up. Acute flare up of rheumatoid arthritis, admit to medical service for IV steroids --> Solu-Medrol 40mg IV bid along with morphine prn for severe pain. PT/OT consult # DM2, sugars likely will be uncontrolled due to steroids, will hold metformin and start lispro coverage. --> on novolog sliding scale # History of CVA with mild chronic right sided weakness --> continue Plavix # Current smoker, cessation advised, nicotine patch prn I GREATLY APPRECIATE THE CONSULTATION. Subjective Constitutional: Denies: no symptoms, chills, diaphoresis, fever, malaise, weakness, other HEENT: Denies: no symptoms, eye pain, blurred vision, tearing, double vision, ear pain, ear discharge, nose pain, nose congestion, throat pain, throat swelling, mouth pain, mouth swelling, other Cardiovascular: Denies: no symptoms, chest pain, edema, irregular heart rate, lightheadedness, palpitations, syncope, other Respiratory: Denies: no symptoms, cough, orthopnea, shortness of breath, SOB with excertion, SOB at rest, sputum, stridor, wheezing, other Gastrointestinal/Abdominal: Denies: no symptoms, abdomen distended, abdominal pain, black stools, tarry stools, blood in stool, constipated, diarrhea, difficulty swallowing, nausea, poor appetite, poor fluid intake, rectal bleeding , vomiting, other Genitourinary: Denies: no symptoms, burning, discharge, frequency, flank pain, hematuria, incontinence, pain, urgency, other Neurologic/Psychiatric: Denies: no symptoms, anxiety, depressed, emotional problems, headache, numbness, paresthesia, pre-existing deficit, seizure, tingling, tremors, weakness, other Endocrine: Denies: no symptoms, excessive sweating, flushing, intolerance to cold, intolerance to heat, increased hunger, increased thirst, increased urine, unexplained weight gain, unexplained weight loss, other Allergies: Coded Allergies: No Known Allergies (Unverified , 05/15/18) Subjective Pt awake and alert. Right arm is with swelling and iv line potential infiltration. H/H stable. Objective Last 24 Hour Vital Signs Date Time Temp Pulse Resp B/P (MAP) Pulse Ox O2 Delivery O2 Flow Rate FiO2 05/18/18 06:40 98.2 05/18/18 04:00 98.2 88 20 137/77 (97) 98 98.2 05/17/18 23:49 98.2 87 20 142/78 (99) 97 98.2 05/17/18 21:27 97.7 05/17/18 21:00 Room Air 05/17/18 20:00 97.7 88 20 137/77 (97) 98 97.7 05/17/18 19:59 90 18 Room Air 21 05/17/18 16:00 97.7 92 18 158/88 (111) 95 97.7 05/17/18 12:00 98.3 66 20 140/80 (100) 100 98.3 05/17/18 10:19 98.2 05/17/18 09:00 Room Air 05/17/18 08:00 98.2 84 18 130/71 (90) 98 98.2 05/17/18 07:28 94 17 Room Air 21 05/17/18 07:15 98.0 Intake and Output 05/17/18 05/18/18 19:00 07:00 Intake Total 280 ml Balance 280 ml Intake Oral 280 ml # Voids 2 2 Laboratory Tests 05/17/18 12:56: Urine Color Pale yellow, Urine Appearance Clear, Urine pH 7, Urine Specific [place] 1.010, Urine Protein Negative, Urine Glucose (UA) Negative, Urine Ketones Negative, Urine Blood Negative, Urine Nitrite Negative, Urine Bilirubin Negative, Urine Urobilinogen Normal, Urine Leukocyte Esterase Negative Height (Feet): 5 Height (Inches): 4.00 Weight (Pounds): 163 General Appearance: alert EENT: TMs normal Neck: normal alignment Cardiovascular: normal rate Respiratory/Chest: lungs clear Abdomen: non tender Extremities: non-tender Edema: 1+ Leg (L), 1+ Leg (R) Edema: mild edema Neurologic: oriented x 3 Skin: warm/dry Lauro Cai MD May 18, 2018 07:06
[2018-05-18 08:00] VITALS: BP 170/74
[2018-05-18] MEDS: Albuterol ud Inhalation HHN PRN ×2 (08:50→18:11)
[2018-05-18 08:55] VITALS: BP 140/81
[2018-05-18 09:11] LABS: INR 0.9 (0.9-1.1)
[2018-05-18] MEDS: Heparin 5000 units/ml inj SUBQ SCH ×2 (09:22→20:50)
[2018-05-18] MEDS: Solu-MEDROL 40mg Inj IVP SCH (09:22)
[2018-05-18] MEDS: Docusate 100mg cap ORAL SCH ×2 (09:23→18:05)
[2018-05-18] MEDS: Flonase Nasal Inhaler 16gm NASAL SCH (09:24)
[2018-05-18 11:44] VITALS: BP 129/76
--- NOTE | 2018-05-18 11:58 | General Progress Note ---
Assessment/Plan Problem List: (1) Flare of rheumatoid arthritis ICD Codes: M06.9 - Rheumatoid arthritis, unspecified SNOMED: 603119648 (2) HTN (hypertension) ICD Codes: I10 - Essential (primary) hypertension SNOMED: 32197279 (3) CVA (cerebral vascular accident) ICD Codes: I63.9 - Cerebral infarction, unspecified SNOMED: 203485524 (4) Diabetes ICD Codes: E11.9 - Type 2 diabetes mellitus without complications SNOMED: 44586356 (5) Microcytic anemia ICD Codes: D50.9 - Iron deficiency anemia, unspecified SNOMED: 587885603 Assessment/Plan RA Flare - patient's pain is improved on solumedrol - will wean patient to prednisone 60 today History of CVA - patient seen by OT, pending PT - cont plavix and lipitor DM a1c 7.1 - patient takes metformin at home, held in the hospital - control with Lispro and lantus, titrate as needed HTN goal <140/80 - start norvasc 5 mg PO daily Microcytic Anemia 2/2 iron deficiency anemia , hematology following - continue IV iron x 5 days, switch to PO once discharged - normal b12 and folate, iron /tibc ratio 8% Leukocytosis 2/2 steroids - cxr and ua clear, patient does not show any signs of sepsis Dispo- home Subjective Date patient seen: May 18, 2018 Time patient seen: 10:55 ROS Limited/Unobtainable: No Constitutional: Reports: other Allergies: Coded Allergies: No Known Allergies (Unverified , 05/15/18) All Systems: reviewed and negative except above Subjective Patient states her pain has much improved with the solumedrol. Objective Last 24 Hour Vital Signs Date Time Temp Pulse Resp B/P (MAP) Pulse Ox O2 Delivery O2 Flow Rate FiO2 05/18/18 11:44 97.4 84 20 129/76 (93) 96 97.4 05/18/18 09:01 76 20 100 Room Air 21 05/18/18 09:00 Room Air 05/18/18 08:55 140/81 (100) 05/18/18 08:51 78 20 100 Room Air 21 05/18/18 08:11 96 20 Room Air 21 05/18/18 08:00 97.8 82 20 170/74 (106) 92 97.8 05/18/18 07:10 98.2 05/18/18 06:40 98.2 05/18/18 04:00 98.2 88 20 137/77 (97) 98 98.2 05/17/18 23:49 98.2 87 20 142/78 (99) 97 98.2 05/17/18 21:27 97.7 05/17/18 21:00 Room Air 05/17/18 20:00 97.7 88 20 137/77 (97) 98 97.7 05/17/18 19:59 90 18 Room Air 21 05/17/18 16:00 97.7 92 18 158/88 (111) 95 97.7 05/17/18 12:00 98.3 66 20 140/80 (100) 100 98.3 Intake and Output 05/17/18 05/18/18 19:00 07:00 Intake Total 840 ml Balance 840 ml Intake Oral 840 ml # Voids 2 4 # Bowel Movements 1 Laboratory Tests 05/17/18 12:56: Urine Color Pale yellow, Urine Appearance Clear, Urine pH 7, Urine Specific [place] 1.010, Urine Protein Negative, Urine Glucose (UA) Negative, Urine Ketones Negative, Urine Blood Negative, Urine Nitrite Negative, Urine Bilirubin Negative, Urine Urobilinogen Normal, Urine Leukocyte Esterase Negative 05/18/18 08:43: Prothrombin Time 9.9, Prothromb Time International Ratio 0.9, Carcinoembryonic Antigen [Pending] Height (Feet): 5 Height (Inches): 4.00 Weight (Pounds): 163 General Appearance: WD/WN, no apparent distress, alert EENT: PERRL/EOMI, normal ENT inspection Neck: non-tender, normal alignment, supple Cardiovascular: normal peripheral pulses, normal rate, regular rhythm, regularly irregular, no gallop/murmur, no JVD Respiratory/Chest: lungs clear, normal breath sounds, no accessory muscle use Abdomen: normal bowel sounds, non tender, soft, no mass Extremities: other - + synovitis in b/l wrist and metacarpal joints, patient has limited ROM at the wrist b/l, no ROM at elbows, +synovitis in b/l knees Edema: no edema noted Arm (L), no edema noted Arm (R), no edema noted Leg (L), no edema noted Leg (R), no edema noted Pedal (L), no edema noted Pedal (R), no edema noted 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
[2018-05-18] MEDS: Morphine Sulfate 2mg/ml Inj IVP PRN ×2 (13:39→20:48)
[2018-05-18] MEDS ORDERED: FERROUS SULFAT325 MG ORAL (14:48)
[2018-05-18] MEDS ORDERED: COLACE100 MG ORAL (14:48)
[2018-05-18] MEDS ORDERED: PREDNISONE20 MG ORAL (14:48)
--- NOTE | 2018-05-18 14:53 | Discharge Instructions ---
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 For Congestive Heart Failure Reminder Report to your physician any weight gain of 5 pounds or more in one week. Ana Bartholomew DO May 18, 2018 14:53
[2018-05-18 16:00] VITALS: BP 145/76
[2018-05-18 20:00] VITALS: BP 131/69
[2018-05-18] MEDS ORDERED: Iron Sucrose 100 MG in NS 55 ML IV SCH (21:00)
[2018-05-19] VITALS: BP 112/67
[2018-05-19] MEDS: Morphine Sulfate 2mg/ml Inj IVP PRN (00:18)
[2018-05-19 04:00] VITALS: BP 130/70
[2018-05-19] MEDS: NovoLOG Insulin Flexpen SUBQ SCH ×2 (05:55→12:05)
[2018-05-19 08:00] VITALS: BP 116/58
--- NOTE | 2018-05-19 08:06 | General Progress Note ---
Assessment/Plan Assessment/Plan # Anemia of iron deficiency. cause yet unknown but ferritin <50, requires iron supplementation --> Anemia w/u has been reviewed. Trend CBC as needed. --> currently no evidence of hemolysis noted --> Ferritin at 16 --> Hgb goal above 7, tranfuse as needed --> IV iron x 5 days IV has been started --> Pt on folic acid --> Consider GI eval, can also be outpatient # Thrombocytosis. Reactive process and will improve once exacerbant is removed. --> JAK2 pending, peripheral smear has been reviewed, no evidence of hemolysis --> Cont to monitor PLT count for improvement # Leukocytosis. is potentially related to steriod use. --> Cont to monitor WBC for improvement. --> Currently, not on abx # RA flare up. Acute flare up of rheumatoid arthritis, admit to medical service for IV steroids --> pred 60 daily along with morphine prn for severe pain. PT/OT consult # DM2, sugars likely will be uncontrolled due to steroids, will hold metformin and start lispro coverage. --> on novolog sliding scale # History of CVA with mild chronic right sided weakness --> continue Plavix # Current smoker, cessation advised, nicotine patch prn I GREATLY APPRECIATE THE CONSULTATION. Subjective Constitutional: Denies: no symptoms, chills, diaphoresis, fever, malaise, weakness, other HEENT: Denies: no symptoms, eye pain, blurred vision, tearing, double vision, ear pain, ear discharge, nose pain, nose congestion, throat pain, throat swelling, mouth pain, mouth swelling, other Cardiovascular: Denies: no symptoms, chest pain, edema, irregular heart rate, lightheadedness, palpitations, syncope, other Respiratory: Denies: no symptoms, cough, orthopnea, shortness of breath, SOB with excertion, SOB at rest, sputum, stridor, wheezing, other Gastrointestinal/Abdominal: Denies: no symptoms, abdomen distended, abdominal pain, black stools, tarry stools, blood in stool, constipated, diarrhea, difficulty swallowing, nausea, poor appetite, poor fluid intake, rectal bleeding , vomiting, other Genitourinary: Denies: no symptoms, burning, discharge, frequency, flank pain, hematuria, incontinence, pain, urgency, other Neurologic/Psychiatric: Denies: no symptoms, anxiety, depressed, emotional problems, headache, numbness, paresthesia, pre-existing deficit, seizure, tingling, tremors, weakness, other Allergies: Coded Allergies: No Known Allergies (Unverified , 05/15/18) Subjective Pt awake and alert. H/H stable. Ra flare better Objective Last 24 Hour Vital Signs Date Time Temp Pulse Resp B/P (MAP) Pulse Ox O2 Delivery O2 Flow Rate FiO2 05/19/18 04:00 98.1 90 18 130/70 (90) 98 98.1 05/19/18 00:18 98.4 05/19/18 00:00 98.2 98 19 112/67 (82) 97 98.2 05/18/18 21:00 Room Air 05/18/18 20:24 98 20 Room Air 21 05/18/18 20:00 98.4 95 19 131/69 (89) 97 98.4 05/18/18 18:19 75 20 100 Room Air 21 05/18/18 18:11 77 20 98 Room Air 21 05/18/18 16:00 97.9 87 20 145/76 (99) 97 97.9 05/18/18 13:39 97.4 05/18/18 11:44 97.4 84 20 129/76 (93) 96 97.4 05/18/18 09:01 76 20 100 Room Air 21 05/18/18 09:00 Room Air 05/18/18 08:55 140/81 (100) 05/18/18 08:51 78 20 100 Room Air 21 05/18/18 08:11 96 20 Room Air 21 Intake and Output 05/18/18 05/19/18 19:00 07:00 Intake Total 990 ml 480 ml Balance 990 ml 480 ml Intake Oral 990 ml 480 ml # Voids 1 3 Laboratory Tests 05/18/18 08:43: Prothrombin Time 9.9, Prothromb Time International Ratio 0.9, Carcinoembryonic Antigen [Pending] Height (Feet): 5 Height (Inches): 4.00 Weight (Pounds): 163 General Appearance: no apparent distress EENT: normal ENT inspection Neck: non-tender Cardiovascular: normal peripheral pulses Respiratory/Chest: normal breath sounds Abdomen: non tender Extremities: non-tender Edema: 1+ Leg (L), 1+ Leg (R) Edema: mild edema Neurologic: no motor/sensory deficits Skin: warm/dry Lauro Cai MD May 19, 2018 08:06
[2018-05-19] MEDS: Norco 5mg/325mg tab ORAL PRN ×2 (09:29→13:27)
[2018-05-19] MEDS: Docusate 100mg cap ORAL SCH (09:29)
[2018-05-19] MEDS: Heparin 5000 units/ml inj SUBQ SCH (09:39)
--- NOTE | 2018-05-19 11:06 | General Progress Note ---
Assessment/Plan Problem List: (1) Flare of rheumatoid arthritis ICD Codes: M06.9 - Rheumatoid arthritis, unspecified SNOMED: 742236753 (2) HTN (hypertension) ICD Codes: I10 - Essential (primary) hypertension SNOMED: 40644952 (3) CVA (cerebral vascular accident) ICD Codes: I63.9 - Cerebral infarction, unspecified SNOMED: 962137931 (4) Diabetes ICD Codes: E11.9 - Type 2 diabetes mellitus without complications SNOMED: 27842010 (5) Microcytic anemia ICD Codes: D50.9 - Iron deficiency anemia, unspecified SNOMED: 666257922 Assessment/Plan RA Flare - patient's pain is controlled - started prednison 60mg , will send home with a taper and [place] prn pain History of CVA - patient seen by OT and PT PT - cont plavix and lipitor DM a1c 7.1 - patient takes metformin at home, held in the hospital - control with Lispro and lantus, titrate as needed HTN goal <140/80 - patient did not need anti-HTNsive meds and is controlled today. Hypertensive episodes may have been 2/2 pain, continue to monitor Microcytic Anemia 2/2 iron deficiency anemia , hematology following - discharge on PO iron, patient received three days of IV iron inhouse - normal b12 and folate, iron /tibc ratio 8% Leukocytosis 2/2 steroids - cxr and ua clear, patient does not show any signs of sepsis Dispo- home I spoke at length with patient's daughter yesterday regarding her discharge and which medication she needs refilled. I have also checked cures on patient. Patient is ok for discharge home today. Subjective Allergies: Coded Allergies: No Known Allergies (Unverified , 05/15/18) All Systems: reviewed and negative except above Subjective patient is doing well with much less pain and redness in her wrists. She has walked with physical therapy and states she is ready to go home. Objective Last 24 Hour Vital Signs Date Time Temp Pulse Resp B/P (MAP) Pulse Ox O2 Delivery O2 Flow Rate FiO2 05/19/18 04:00 98.1 90 18 130/70 (90) 98 98.1 05/19/18 00:18 98.4 05/19/18 00:00 98.2 98 19 112/67 (82) 97 98.2 05/18/18 21:00 Room Air 05/18/18 20:24 98 20 Room Air 21 05/18/18 20:00 98.4 95 19 131/69 (89) 97 98.4 05/18/18 18:19 75 20 100 Room Air 21 05/18/18 18:11 77 20 98 Room Air 21 05/18/18 16:00 97.9 87 20 145/76 (99) 97 97.9 05/18/18 13:39 97.4 05/18/18 11:44 97.4 84 20 129/76 (93) 96 97.4 Intake and Output 05/18/18 05/19/18 19:00 07:00 Intake Total 990 ml 480 ml Balance 990 ml 480 ml Intake Oral 990 ml 480 ml # Voids 1 3 Height (Feet): 5 Height (Inches): 4.00 Weight (Pounds): 163 General Appearance: WD/WN, no apparent distress, alert EENT: PERRL/EOMI, normal ENT inspection, TMs normal Neck: non-tender, normal alignment, supple Cardiovascular: normal peripheral pulses, normal rate, regular rhythm, regularly irregular, no gallop/murmur, no JVD Respiratory/Chest: chest wall non-tender, lungs clear, normal breath sounds, no respiratory distress, no accessory muscle use Abdomen: normal bowel sounds, non tender, soft Extremities: other - decreased range of motion in the wrists b/l with + synovitis worse in the left 2nd MC joint , synovitis in bl knees Edema: no edema noted Arm (L), no edema noted Arm (R), no edema noted Leg (L), no edema noted Leg (R), no edema noted Pedal (L), no edema noted Pedal (R), no edema noted 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
[2018-05-19 12:00] VITALS: BP 121/89
[2018-05-19] MEDS: Flonase Nasal Inhaler 16gm NASAL SCH (12:51)
[2018-05-19] MEDS ORDERED: Tubing IV Secondary IV ONE (14:34)
[2018-05-19] MEDS ORDERED: NS 275ml ONE (14:34)
--- NOTE | 2018-05-20 11:40 | Discharge Summary ---
Discharge Summary Hospital Course Date of Admission May 15, 2018 at 20:14 Date of Discharge May 19, 2018 at 14:35 Admitting Diagnosis intractable pain, rheumatoid flare up JESSICA Chavis is a 63 year old female who was admitted on May 15, 2018 at 20:14 for Intractable Pain, Rheumatoid Flare Up Consultations Hematology: Dr. Cai Hospital Course 63 yo AA F PMH of RA (follow by oupatient buckle sorter), CVA with Right sided deficits, DM (A1c 7.1), history of HTN (not currently requiring meds), presented with weakness and severe pain and inflammation of her b/l wrists and right ankle. Patient was admitted for RA flare and treated with solumedrol for three days in addition to her maintenance medications which include MTX, plaquenil and folic acid. Patient was also found to have microcytic anemia and treated with IV iron during hospital stay. Patient and daughter displayed understanding. Diabetes was controlled with insulin during hospital stay and patient will resume metformin on discharge. During stay patient greatly improved and was able to ambulate with PT and OT. Patient placed on prednisone taper for discharge along with refill of needed medications. Patient recently moved to live in with her daughter, who states patient has care by a family member all hours of the day. Patient follows up with a rheumatology and was instructed to schedule an appointment with PCP for hospital discharge within 1 week. Please see med req from dc Discharge Condition Upon Discharge: stable Discharge Disposition Patient was discharged to Home (01) Discharge Diagnoses: (1) Rheumatoid arteritis (2) Diabetes (3) HTN (hypertension) (4) CVA (cerebral vascular accident) Discharge Instructions Discharge Instructions Follow up with: buckle sorter within the next week Call MD/Return to Hospital if: worsening pain, fevers or chills, shortness of breath or chest pain Activity: resume normal activities Ana Bartholomew DO May 20, 2018 11:40
--- NOTE | 2018-05-20 15:04 | Diagnostic Imaging Report ---
APPROVED REPORT CPT Code: 02598 Present Symptoms Comments: Right arm swelling RIGHT UPPER EXTREMITY (Deep venous system): Imaging reveals patency of the internal jugular, subclavian, axillary and brachial veins. Doppler indicates normal spontaneous flow within these venous segments. The cephalic vein was not well visualized, the basilic vein is within normal limits. Incidental finding: An echoic structure was noted around right wrist area, possible effusion.
== END 2018-05-19 14:35 | disposition home or self-care (01) | DRG 346 ==
LOC: EMR 19:00 → 3E 20:14 → EDBEDREQ 21:52 → 3E 05-17 03:08
DX: M06.89 Other specified rheumatoid arthritis, multiple sites (principal); I69.351 Hemiplegia and hemiparesis following cerebral infarction affecting right dominant side; D50.9 Iron deficiency anemia, unspecified; D64.9 Anemia, unspecified; E11.9 Type 2 diabetes mellitus without complications; F17.200 Nicotine dependence, unspecified, uncomplicated; I10 Essential (primary) hypertension; Z79.84 Long term (current) use of oral hypoglycemic drugs
CPT/HCPCS: 36415; 70450; 80048; 80053; 80307; 80329; 81003; 82378; 82607; 82728; 82746; 82962; 83010; 83036; 83540; 83550; 85007; 85025; 85044; 85060; 85384; 85610; 86703; 86705; 86709; 86803; 87340; 90686; 93971; 94640; 94664; 96361; 96374; 96375; 99285; J1815

== ENCOUNTER 2018-05-26 20:09 | Inpatient (IN) | payer MEDICAID ==
[~2018-05-26] VITALS: Ht 162.6 cm; Wt 74.4 kg
[~2018-05-26 20:09] MED LIST: AMITRIPTYLINE100 MG ORAL; CLOPIDOGREL75 MG ORAL; COLACE100 MG ORAL; COMBIVENT RESPIM4 GM IH; FERROUS SULFAT325 MG ORAL; FLUTICASONE PRO16 G1 NASAL; FOLIC ACID1 MG ORAL; HYDROXYCHLOROQ200 M1 PO; LIPITOR10 MG ORAL; METFORMIN HCL1000 M1 ORAL; METHOTREXATE2.5 MG PO; NORCO 5-325 TA1 EACH ORAL; PREDNISONE20 MG ORAL; TREXALL5 MG PO
[2018-05-26 20:25] VITALS: BP 150/79
--- NOTE | 2018-05-26 20:43 | Emergency Room Report ---
History of Present Illness General Chief Complaint: Abdominal Pain Source: Patient Present Illness HPI Patient has history rheumatoid arthritis and was recently admitted for rheumatoid arthritis flare. Patient was discharged about a week ago and since then has had no bowel movements. Patient states that she had nausea and also episode of vomiting today. She complains of abdominal pain. She states that she is passing some gas. She denies any fever or chest pain. Symptoms are noted to be severe.No other modifying factors. No other associated signs and symptoms. No other complaints were noted. Allergies: Coded Allergies: No Known Allergies (Unverified , 05/15/18) Patient History Past Medical History: DM, HTN, CAD, asthma, CVA/TIA, other - Rheumatoid arthritis Past Surgical History: none Pertinent Family History: none Social History: Denies: smoking, alcohol use, drug use Last Menstrual Period: 2011 Now: No : 16 Para: 7 Reviewed Nursing Documentation: PMH: Agreed; PSxH: Agreed Nursing Documentation-PMH Hx Cardiac Problems: Yes Hx Hypertension: Yes Hx Asthma: Yes Hx COPD: Yes Hx Diabetes: Yes Hx Cancer: No Hx Gastrointestinal Problems: Yes Hx Cerebrovascular Accident: Yes - 2016 Hx Weakness: Yes Review of Systems All Other Systems: negative except mentioned in HPI Physical Exam Vital Signs Date Time Temp Pulse Resp B/P (MAP) Pulse Ox O2 Delivery O2 Flow Rate FiO2 05/26/18 20:15 99.1 104 18 150/79 96 Room Air 99.1 Sp02 EP Interpretation: reviewed, normal General Appearance: alert, moderate distress Head: atraumatic Eyes: bilateral eye normal inspection ENT: normal ENT inspection, hearing grossly normal, normal voice Neck: normal inspection, full range of motion, supple, no bony tend Respiratory: normal inspection, lungs clear, normal breath sounds, no respiratory distress, no retraction, no wheezing Cardiovascular #1: regular rate, rhythm, no edema Gastrointestinal: soft, other - Diffusely tender, distended, decreased Bowel sounds Genitourinary: no CVA tenderness Musculoskeletal: normal inspection, back normal, normal range of motion Neurologic: normal inspection, alert, responsive, speech normal Psychiatric: normal inspection, judgement/insight normal, depressed affect, anxious Skin: normal inspection, normal color, no rash Medical Decision Making Diagnostic Impression: Primary Impression: Abdominal pain Additional Impression: Rheumatoid arthritis ER Course Patient presents to the emergency department today complaining of abdominal pain. Differential considerations include acute pancreatitis, cholecystitis, gastritis, hepatitis, appendicitis just to name a few. Given the severity of the patient's presentation I felt this is a highly complex patient. This patient required extensive workup. I will sign case out to Dr. Davon Peter for final disposition. Labs Test 05/26/18 21:11 Last Vital Signs Date Time Temp Pulse Resp B/P (MAP) Pulse Ox O2 Delivery O2 Flow Rate FiO2 05/26/18 20:15 99.1 104 18 150/79 96 Room Air 99.1 Referrals: NON PHYSICIAN (PCP) Moreno Hardy MD May 26, 2018 20:43
[2018-05-26 21:32] LABS: ANION GAP 10 mmol/L (5-15); BLOOD UREA NITROGEN 14 mg/dL (7-18); CALCIUM 8.8 MG/DL (8.5-10.1); CARBON DIOXIDE 26 MMOL/L (21-32); CHLORIDE 103 MMOL/L (98-107); CREATININE 0.9 MG/DL (0.55-1.30); POTASSIUM 4.7 MMOL/L (3.5-5.1); SODIUM 139 MMOL/L (136-145)
[2018-05-26 21:36] LABS: HEMATOCRIT 32.6 % (37.0-47.0); HEMOGLOBIN 9.9 G/DL (12.0-16.0); MEAN CORPUSCULAR VOLUME 79 FL (80-99); PLATELET COUNT 750 K/UL (150-450); RED BLOOD COUNT 4.14 M/UL (4.20-5.40); RED CELL DISTRIBUTION WIDTH 20.8 % (11.6-14.8); WHITE BLOOD COUNT 15.4 K/UL (4.8-10.8)
[2018-05-26 21:37] LABS: ALANINE AMINOTRANSFERASE 33 U/L (12-78); ALBUMIN 3.6 G/DL (3.4-5.0); ALBUMIN/GLOBULIN RATIO 0.9 (1.0-2.7); ALKALINE PHOSPHATASE 100 U/L (46-116); ASPARTATE AMINO TRANSFERASE 10 U/L (15-37); BILIRUBIN,TOTAL 0.1 MG/DL (0.2-1.0)
[2018-05-26 21:43] LABS: INR 0.9 (0.9-1.1)
[2018-05-26] MEDS ORDERED: Morphine Sulfate 4mg/ml Inj (IV/IM USE ONLY) IVP ONE (21:45)
[2018-05-26 22:25] LABS: APPEARANCE,URINE CLEAR; BILIRUBIN, URINE NEGATIVE (NEGATIVE); COLOR,URINE PALE YELLOW; GLUCOSE, URINE (UA) 4+ (NEGATIVE); KETONES,URINE NEGATIVE (NEGATIVE); LEUKOCYTE ESTERASE ,URINE 1+ (NEGATIVE); NITRITE,URINE NEGATIVE (NEGATIVE); PH,URINE 6.5 (4.5-8.0); PROTEIN,URINE NEGATIVE (NEGATIVE); UROBILINOGEN,URINE NORMAL MG/DL (0.0-1.0)
[2018-05-26 22:45] VITALS: BP 150/79
[2018-05-26] MEDS ORDERED: HYDROmorphone 1mg/ml Carpuject IVP ONE (22:45)
[2018-05-26] MEDS ORDERED: Cefepime HCl 1 GM in D5W 55 ML IVPB ONE (22:45)
[2018-05-26] MEDS ORDERED: Hydromorphone 0.5mg/0.5ml inj IVP ONE (23:00)
[2018-05-27 00:50] VITALS: BP 129/81
[2018-05-27] MEDS: HYDROmorphone 1mg/ml Carpuject IVP PRN ×6 (03:16→21:03)
[2018-05-27 04:22] LABS: HEMOGLOBIN 9.3 G/DL (12.0-16.0); MEAN CORPUSCULAR VOLUME 77 FL (80-99); PLATELET COUNT 644 K/UL (150-450); RED BLOOD COUNT 3.77 M/UL (4.20-5.40); RED CELL DISTRIBUTION WIDTH 21.5 % (11.6-14.8)
[2018-05-27 04:33] LABS: ANION GAP 6 mmol/L (5-15); BLOOD UREA NITROGEN 13 mg/dL (7-18); CALCIUM 7.9 MG/DL (8.5-10.1); CARBON DIOXIDE 26 MMOL/L (21-32); CHLORIDE 108 MMOL/L (98-107); CREATININE 0.8 MG/DL (0.55-1.30); POTASSIUM 4.6 MMOL/L (3.5-5.1); SODIUM 140 MMOL/L (136-145)
[2018-05-27] MEDS: Zosyn 4.5gm q8h **Extended infusion IVPB SCH ×6 (05:14→20:24)
[2018-05-27] MEDS: D5 1/2NS 1,000 ML IV SCH ×3 (05:14→20:24)
--- NOTE | 2018-05-27 06:28 | Consultation ---
Consult Note Consult Note HEMATOLOGY-ONCOLOGY CONSULTATION REQUESTING PHYSICIAN: Shaq Castañeda MD DATE OF CONSULTATION: 05/27/2018 REASON FOR CONSULTATION: Anemia and thrombocytosis HPI 63 year old woman with history of RA, type 2 DM, history of stroke with residual right sided weakness who was recently admitted last week with RA flare. She has responded to prednisone well in the past. Denies fever, chills, chest pain or palpitations. Symptoms improved partially with morphine given in ED. Now admitted with abdominal pain. I have been consulted for the evaluation and management of anemia and thrombocytosis. Current hgb 9.1 and plt at 670. Will order anemia w/u, hgb still remains low and hgb >7 is the goal She is now here with abdominal pain. Coded Allergies: No Known Allergies (Unverified , 05/15/18) Medication History Scheduled Amitriptyline HCl (Amitriptyline HCl), 75 MG ORAL BEDTIME, (Reported) Atorvastatin Calcium* (Lipitor*), 10 MG ORAL DAILY, (Reported) Clopidogrel* (Clopidogrel*), 75 MG ORAL DAILY, (Reported) Fluticasone Propionate* (Fluticasone Propionate*), 1 SPRAY NASAL DAILY, ( Reported) Folic Acid* (Folic Acid*), 1 MG ORAL DAILY, (Reported) Hydroxychloroquine Sulfate (Hydroxychloroquine Sulfate), 200 MG PO BID, ( Reported) Metformin Hcl* (Metformin Hcl*), 1,000 MG ORAL BID, (Reported) Methotrexate Sodium (Trexall), 12.5 MG PO Q FRIDAY, (Reported) Scheduled PRN Hydrocodone Bit/Acetaminophen 5-325* ([place] 5-325*), 1 TAB ORAL Q4H PRN for For Pain, (Reported) Miscellaneous Medications Ipratropium/Albuterol Sulfate (Combivent Respimat Inhal [place]), 4 GM IH, ( Reported) Discontinued Medications Methotrexate Sodium* (Methotrexate*), 2.5 MG PO, (Reported) Discontinued Reason: Prescription changed Patient History History Provided By: Patient Healthcare decision maker Resuscitation status Full Code Advanced Directive on File Family History Family History: Father with DM Social History Social History: (1) Smoker Review of Systems Eye: Denies: eye pain ENT: Denies: nose pain Respiratory: Denies: cough, shortness of breath Cardiovascular: Denies: chest pain, palpitations Gastrointestinal: Denies: abdominal pain, constipation Genitourinary: Denies: discharge, dysuria Musculoskeletal: Reports: joint pain; Denies: back pain Skin: Denies: rash, change in hair/nails Neurological: Denies: headache, numbness Endocrine: Denies: excessive sweating, flushing Hematologic/Lymphatic: Denies: blood clots, easy bleeding, easy bruising Physical Exam General Appearance: no apparent distress, alert HEENT: normocephalic, atraumatic Neck: normal alignment, supple, normal inspection Respiratory/Chest: chest wall non-tender, lungs clear, normal breath sounds Cardiovascular/Chest: normal peripheral pulses, normal rate, regular rhythm Abdomen: normal bowel sounds, non tender, soft Extremities: no calf tenderness, no edema, no cyanosis Laboratory Tests Test 05/26/18 21:11 05/26/18 21:45 05/27/18 04:05 White Blood Count 15.4 K/UL (4.8-10.8) H 19.0 K/UL (4.8-10.8) H Red Blood Count 4.14 M/UL (4.20-5.40) L 3.77 M/UL (4.20-5.40) L Hemoglobin 9.9 G/DL (12.0-16.0) L 9.3 G/DL (12.0-16.0) L Hematocrit 32.6 % (37.0-47.0) L 29.0 % (37.0-47.0) L Mean Corpuscular Volume 79 FL (80-99) L 77 FL (80-99) L Mean Corpuscular Hemoglobin 24.0 PG (27.0-31.0) L 24.6 PG (27.0-31.0) L Mean Corpuscular Hemoglobin Concent 30.5 G/DL (32.0-36.0) L 32.0 G/DL (32.0-36.0) Red Cell Distribution Width 20.8 % (11.6-14.8) H 21.5 % (11.6-14.8) H Platelet Count 750 K/UL (150-450) H 644 K/UL (150-450) H Mean Platelet Volume 5.6 FL (6.5-10.1) L 5.6 FL (6.5-10.1) L Neutrophils (%) (Auto) % (45.0-75.0) % (45.0-75.0) Lymphocytes (%) (Auto) % (20.0-45.0) % (20.0-45.0) Monocytes (%) (Auto) % (1.0-10.0) % (1.0-10.0) Eosinophils (%) (Auto) % (0.0-3.0) % (0.0-3.0) Basophils (%) (Auto) % (0.0-2.0) % (0.0-2.0) Differential Total Cells Counted 100 Neutrophils % (Manual) 87 % (45-75) H Pending Lymphocytes % (Manual) 10 % (20-45) L Pending Monocytes % (Manual) 3 % (1-10) Eosinophils % (Manual) 0 % (0-3) Basophils % (Manual) 0 % (0-2) Band Neutrophils 0 % (0-8) Platelet Estimate Increased H Pending Platelet Morphology Normal Pending Hypochromasia 1+ Anisocytosis 1+ Prothrombin Time 9.9 SEC (9.30-11.50) Prothromb Time International Ratio 0.9 (0.9-1.1) Activated Partial Thromboplast Time 23 SEC (23-33) Sodium Level 139 MMOL/L (136-145) 140 MMOL/L (136-145) Potassium Level 4.7 MMOL/L (3.5-5.1) 4.6 MMOL/L (3.5-5.1) Chloride Level 103 MMOL/L (98-107) 108 MMOL/L (98-107) H Carbon Dioxide Level 26 MMOL/L (21-32) 26 MMOL/L (21-32) Anion Gap 10 mmol/L (5-15) 6 mmol/L (5-15) Blood Urea Nitrogen 14 mg/dL (7-18) 13 mg/dL (7-18) Creatinine 0.9 MG/DL (0.55-1.30) 0.8 MG/DL (0.55-1.30) Estimat Glomerular Filtration Rate > 60 mL/min (>60) > 60 mL/min (>60) Glucose Level 285 MG/DL (74-106) H 86 MG/DL (74-106) # Calcium Level 8.8 MG/DL (8.5-10.1) 7.9 MG/DL (8.5-10.1) L Total Bilirubin 0.1 MG/DL (0.2-1.0) L Aspartate Amino Transf (AST/SGOT) 10 U/L (15-37) L Alanine Aminotransferase (ALT/SGPT) 33 U/L (12-78) Alkaline Phosphatase 100 U/L (46-116) Total Protein 7.4 G/DL (6.4-8.2) Albumin 3.6 G/DL (3.4-5.0) Globulin 3.8 g/dL Albumin/Globulin Ratio 0.9 (1.0-2.7) L Lipase 129 U/L (73-393) Urine Color Pale yellow Urine Appearance Clear Urine pH 6.5 (4.5-8.0) Urine Specific [place] 1.010 (1.005-1.035) Urine Protein Negative (NEGATIVE) Urine Glucose (UA) 4+ (NEGATIVE) H Urine Ketones Negative (NEGATIVE) Urine Blood Negative (NEGATIVE) Urine Nitrite Negative (NEGATIVE) Urine Bilirubin Negative (NEGATIVE) Urine Urobilinogen Normal MG/DL (0.0-1.0) Urine Leukocyte Esterase 1+ (NEGATIVE) H Urine RBC 0-2 /HPF (0 - 2) Urine WBC 2-4 /HPF (0 - 2) Urine Squamous Epithelial Cells Few /LPF (NONE/OCC) Urine Bacteria Few /HPF (NONE) Assessment/Plan # Anemia of iron deficiency. cause yet unknown but ferritin <50, requires iron supplementation --> Anemia w/u has been reviewed rom prior admission. Trend CBC as needed. --> currently no evidence of hemolysis noted --> Ferritin at 16 (ON LAST ADMISSION) --> Hgb goal above 7, tranfuse as needed --> IV iron x 5 days IV completed --> Pt on folic acid --> Consider GI eval, can also be outpatient # Thrombocytosis. Reactive process and will improve once exacerbant is removed. --> JAK2 pending, peripheral smear has been reviewed, no evidence of hemolysis --> Cont to monitor PLT count for improvement # Leukocytosis. is potentially related to steriod use. --> Cont to monitor WBC for improvement. --> Currently, not on abx # RA flare up. Acute flare up of rheumatoid arthritis, admit to medical service for IV steroids --> improved from prior admission # DM2, sugars likely will be uncontrolled due to steroids, will hold metformin and start lispro coverage. --> on novolog sliding scale # History of CVA with mild chronic right sided weakness --> continue Plavix # Current smoker, cessation advised, nicotine patch prn I GREATLY APPRECIATE THE CONSULTATION. Lauro Cai MD May 27, 2018 06:28
[2018-05-27 07:33] LABS: FERRITIN 31 NG/ML (8-388)
[2018-05-27 07:40] LABS: % IRON SATURATION 9 % (15-50); IRON 28 ug/dL (50-175); TOTAL IRON BINDING CAPACITY 325 ug/dL (250-450)
[2018-05-27 08:00] VITALS: BP 137/75
--- NOTE | 2018-05-27 08:40 | History and Physical ---
History of Present Illness General Date patient seen: May 27, 2018 Reason for Hospitalization: Abdominal Pain Present Illness HPI 63 year old woman with history of RA, type 2 DM, history of stroke with residual right-sided weakness presents for no bowel movement for 6 days. She states she was discharged last week for a RA flare. She was started on a prednisone taper. She went home and did not have any bowel movement. She is passing gas. Pt states she has an appetite and is asking to eat breakfast. Allergies: Coded Allergies: No Known Allergies (Unverified , 05/15/18) Medication History Scheduled Amitriptyline HCl (Amitriptyline HCl), 75 MG ORAL BEDTIME, (Reported) Atorvastatin Calcium* (Lipitor*), 10 MG ORAL DAILY, (Reported) Clopidogrel* (Clopidogrel*), 75 MG ORAL DAILY, (Reported) Docusate Sodium* (Colace*), 200 MG ORAL DAILY Ferrous Sulfate* (Ferrous Sulfate*), 325 MG ORAL TID Fluticasone Propionate* (Fluticasone Propionate*), 1 SPRAY NASAL DAILY, ( Reported) Folic Acid* (Folic Acid*), 1 MG ORAL DAILY, (Reported) Hydroxychloroquine Sulfate (Hydroxychloroquine Sulfate), 200 MG PO BID, ( Reported) Metformin Hcl* (Metformin Hcl*), 1,000 MG ORAL BID, (Reported) Methotrexate Sodium (Trexall), 12.5 MG PO Q FRIDAY, (Reported) Prednisone* (Prednisone*), 20 MG ORAL DAILY Scheduled PRN Hydrocodone Bit/Acetaminophen 5-325* ([place] 5-325*), 1 TAB ORAL Q4H PRN for For Pain, (Reported) Miscellaneous Medications Ipratropium/Albuterol Sulfate (Combivent Respimat Inhal [place]), 4 GM IH, ( Reported) Patient History Healthcare decision maker Resuscitation status Full Code Advanced Directive on File No Family History Family History: Father with DM Review of Systems Constitutional: Reports: weakness; Denies: fever, malaise Eye: Denies: eye pain, tearing, double vision ENT: Denies: nose pain, nose congestion, throat pain Respiratory: Denies: shortness of breath, stridor, sputum Cardiovascular: Denies: chest pain, edema, palpitations, syncope Gastrointestinal: Reports: abdominal pain, constipation, nausea, vomiting; Denies: diarrhea Musculoskeletal: Reports: joint pain, joint swelling, muscle pain, muscle stiffness Skin: Denies: rash, dryness Psychiatric: Reports: anxiety, depressed feelings; Denies: SI Neurological: Denies: numbness, paresthesia, seizure Endocrine: Denies: excessive sweating, intolerance to temperature Hematologic/Lymphatic: Reports: anemia; Denies: blood clots, easy bleeding Physical Exam General Appearance: alert, mild distress, obese Lines, tubes and drains: peripheral HEENT: normocephalic, atraumatic, anicteric, mucous membranes moist Neck: non-tender, normal alignment, supple, normal inspection Respiratory/Chest: chest wall non-tender, lungs clear, normal breath sounds, no respiratory distress Cardiovascular/Chest: normal peripheral pulses, normal rate, regular rhythm Abdomen: normal bowel sounds, non tender, soft, no organomegaly Extremities: normal range of motion, non-tender, normal inspection, no calf tenderness Skin Exam: normal pigmentation, warm/dry Neurologic: alert, oriented x 3, responsive Last 24 Hour Vital Signs Date Time Temp Pulse Resp B/P (MAP) Pulse Ox O2 Delivery O2 Flow Rate FiO2 05/27/18 04:21 Room Air 05/27/18 01:15 97.0 83 18 129/81 99 Room Air 97.0 83 05/27/18 00:50 97.0 83 18 129/81 99 Room Air 97.0 97 05/26/18 23:13 99.1 05/26/18 22:45 97.0 97 18 150/79 98 Room Air 97.0 05/26/18 22:07 97.0 05/26/18 22:07 97.0 05/26/18 21:37 99.1 05/26/18 20:25 99.1 83 18 150/79 96 Room Air 99.1 05/26/18 20:15 99.1 104 18 150/79 96 Room Air 99.1 Intake and Output 05/26/18 05/27/18 19:00 07:00 Intake Total 3155 ml Balance 3155 ml Intake Oral 2000 ml IV Total 1155 ml # Voids 3 Laboratory Tests Test 05/26/18 21:11 05/26/18 21:45 05/27/18 04:05 05/27/18 07:55 White Blood Count 15.4 K/UL (4.8-10.8) H 19.0 K/UL (4.8-10.8) H Red Blood Count 4.14 M/UL (4.20-5.40) L 3.77 M/UL (4.20-5.40) L Hemoglobin 9.9 G/DL (12.0-16.0) L 9.3 G/DL (12.0-16.0) L Hematocrit 32.6 % (37.0-47.0) L 29.0 % (37.0-47.0) L Mean Corpuscular Volume 79 FL (80-99) L 77 FL (80-99) L Mean Corpuscular Hemoglobin 24.0 PG (27.0-31.0) L 24.6 PG (27.0-31.0) L Mean Corpuscular Hemoglobin Concent 30.5 G/DL (32.0-36.0) L 32.0 G/DL (32.0-36.0) Red Cell Distribution Width 20.8 % (11.6-14.8) H 21.5 % (11.6-14.8) H Platelet Count 750 K/UL (150-450) H 644 K/UL (150-450) H Mean Platelet Volume 5.6 FL (6.5-10.1) L 5.6 FL (6.5-10.1) L Neutrophils (%) (Auto) % (45.0-75.0) % (45.0-75.0) Lymphocytes (%) (Auto) % (20.0-45.0) % (20.0-45.0) Monocytes (%) (Auto) % (1.0-10.0) % (1.0-10.0) Eosinophils (%) (Auto) % (0.0-3.0) % (0.0-3.0) Basophils (%) (Auto) % (0.0-2.0) % (0.0-2.0) Differential Total Cells Counted 100 Neutrophils % (Manual) 87 % (45-75) H Pending Lymphocytes % (Manual) 10 % (20-45) L Pending Monocytes % (Manual) 3 % (1-10) Eosinophils % (Manual) 0 % (0-3) Basophils % (Manual) 0 % (0-2) Band Neutrophils 0 % (0-8) Platelet Estimate Increased H Pending Platelet Morphology Normal Pending Hypochromasia 1+ Anisocytosis 1+ Prothrombin Time 9.9 SEC (9.30-11.50) Pending Prothromb Time International Ratio 0.9 (0.9-1.1) Pending Activated Partial Thromboplast Time 23 SEC (23-33) Sodium Level 139 MMOL/L (136-145) 140 MMOL/L (136-145) Potassium Level 4.7 MMOL/L (3.5-5.1) 4.6 MMOL/L (3.5-5.1) Chloride Level 103 MMOL/L (98-107) 108 MMOL/L (98-107) H Carbon Dioxide Level 26 MMOL/L (21-32) 26 MMOL/L (21-32) Anion Gap 10 mmol/L (5-15) 6 mmol/L (5-15) Blood Urea Nitrogen 14 mg/dL (7-18) 13 mg/dL (7-18) Creatinine 0.9 MG/DL (0.55-1.30) 0.8 MG/DL (0.55-1.30) Estimat Glomerular Filtration Rate > 60 mL/min (>60) > 60 mL/min (>60) Glucose Level 285 MG/DL (74-106) H 86 MG/DL (74-106) # Calcium Level 8.8 MG/DL (8.5-10.1) 7.9 MG/DL (8.5-10.1) L Total Bilirubin 0.1 MG/DL (0.2-1.0) L Aspartate Amino Transf (AST/SGOT) 10 U/L (15-37) L Alanine Aminotransferase (ALT/SGPT) 33 U/L (12-78) Alkaline Phosphatase 100 U/L (46-116) Total Protein 7.4 G/DL (6.4-8.2) Albumin 3.6 G/DL (3.4-5.0) Globulin 3.8 g/dL Albumin/Globulin Ratio 0.9 (1.0-2.7) L Lipase 129 U/L (73-393) Urine Color Pale yellow Urine Appearance Clear Urine pH 6.5 (4.5-8.0) Urine Specific [place] 1.010 (1.005-1.035) Urine Protein Negative (NEGATIVE) Urine Glucose (UA) 4+ (NEGATIVE) H Urine Ketones Negative (NEGATIVE) Urine Blood Negative (NEGATIVE) Urine Nitrite Negative (NEGATIVE) Urine Bilirubin Negative (NEGATIVE) Urine Urobilinogen Normal MG/DL (0.0-1.0) Urine Leukocyte Esterase 1+ (NEGATIVE) H Urine RBC 0-2 /HPF (0 - 2) Urine WBC 2-4 /HPF (0 - 2) Urine Squamous Epithelial Cells Few /LPF (NONE/OCC) Urine Bacteria Few /HPF (NONE) Reticulocyte Count Pending Iron Level 28 ug/dL (50-175) L Total Iron Binding Capacity 325 ug/dL (250-450) Percent Iron Saturation 9 % (15-50) L Unsaturated Iron Binding 297 ug/dL (112-346) Ferritin 31 NG/ML (8-388) Folate 17.6 NG/ML (8.6-58.9) Fibrinogen Pending Height (Feet): 5 Height (Inches): 4.00 Weight (Pounds): 164 Medications Current Medications Medications (Trade) Dose Ordered Sig/Ashlyn Route PRN Reason Start Time Stop Time Status Last Admin Dose Admin Dextrose/Sodium Chloride 1,000 ml @ 75 mls/hr [id number] IV 05/27/18 03:30 06/26/18 03:29 05/27/18 05:14 Docusate Sodium (Colace) 100 mg TWICE A DAY ORAL 05/27/18 09:00 06/26/18 08:59 Hydrocortisone (Hydrocortisone) 1 applic Q8HR TOPIC 05/27/18 14:00 06/26/18 13:59 Hydromorphone HCl (Dilaudid) 1 mg Q3H PRN IVP Severe Pain (Pain Scale 7-10) 05/27/18 02:30 06/03/18 02:29 05/27/18 06:31 Ondansetron HCl (Zofran) 4 mg Q6H PRN IVP Nausea & Vomiting 05/27/18 03:45 06/26/18 03:44 Piperacillin Sod/ Tazobactam Sod 4.5 gm/Sodium Chloride 110 ml @ 27.5 mls/hr Q8H IVPB 05/27/18 04:00 06/03/18 03:59 05/27/18 05:14 Assessment/Plan Problem List: (1) GENERALIZED ABDOMINAL PAIN ICD Codes: R10.84 - GENERALIZED ABDOMINAL PAIN (2) SIRS OF NON-INFECTIOUS ORIGIN W/O ACUTE ORGAN DYSFUNCTION ICD Codes: R65.10 - SIRS OF NON-INFECTIOUS ORIGIN W/O ACUTE ORGAN DYSFUNCTION (3) Constipation ICD Codes: K59.00 - Constipation, unspecified SNOMED: [id number] Qualifiers: Qualified Codes: K59.00 - Constipation, unspecified Status: stable Assessment/Plan Abdominal pain CT A/P seems stable, no sign of bowel obstruction radiographically d/w gen surg, no further tim needed, will advance diet and see how she tolerates colace and stool softener to assist in bowel movements SIRS, elevated wbc hr r/o infectious process f/u septic w/u, thus far no obvious source of infection could all be related to her prednisone and RA symptoms Constipation as above RA pt is on methotrexate, prednisone taper, will continue DM2 monitor blood glucose while on prednisone carb control diet f/u HA1C Raphael Edmond D.O. May 27, 2018 08:40
[2018-05-27 08:53] LABS: INR 0.9 (0.9-1.1)
[2018-05-27] MEDS ORDERED: Docusate 100mg cap ORAL SCH (09:00)
--- NOTE | 2018-05-27 10:07 | Diagnostic Imaging Report ---
Indication: Pain, nausea, vomiting Technique: Spiral acquisitions obtained through the abdomen and pelvis. No oral contrast utilized, per emergency room physician request No IV contrast utilized, per referring physician request.. Multiplanar reconstructions were generated. Total dose length product 762.74 mGycm. CTDIvol(s) 15.03 mGy. Dose reduction achieved using automated exposure control Comparison: None Findings: Normal appendix. Moderate retained stool is present. There are questionably colonic diverticula. No evidence of diverticulitis. No small bowel distention. No free or loculated intraperitoneal gas or fluid is evident. There is a small sliding-type hiatal hernia. Distal esophagus, stomach, duodenum are otherwise unremarkable. Lack of IV contrast limits assessment of solid organs. The gallbladder is collapsed, contains small gallstones. The liver, bile ducts, pancreas, spleen, adrenals are unremarkable. The kidneys demonstrate bilateral nonspecific perinephric fat stranding. No renal or ureteral calculi, hydronephrosis, hydroureter, gross mass or cyst demonstrated. No pelvic mass or adenopathy. Uterus and ovaries are unremarkable. The bladder is unremarkable. There is focal eccentric aneurysm of the infrarenal abdominal aorta measuring 3 cm maximal diameter. There is not quite aneurysmal fusiform ectasia of the distal abdominal aorta. There are extensive atherosclerotic calcifications. The included lung bases demonstrate some posterior dependent atelectatic changes bilaterally. The bones demonstrate degenerative changes of the lumbosacral junction. Impression: No definite acute abnormality 3 cm saccular eccentric infrarenal abdominal aortic aneurysm. No evidence of leakage or rupture. Nonspecific bilateral perinephric fat stranding. Suspect chronic but could indicate acute nephritis. Correlate with clinical findings Moderate retained stool correlate with any clinical history of constipation Equivocal colonic diverticulosis. No evidence of diverticulitis. Cholelithiasis Other findings as noted, including small sliding-type hiatal hernia, degenerative spondylosis This agrees with the preliminary interpretation provided overnight by Dr. Garcia The CT scanner at [facility] is accredited by the [employer] and the scans are performed using protocols designed to limit radiation exposure to as low as reasonably achievable to attain images of sufficient resolution adequate for diagnostic evaluation.
--- NOTE | 2018-05-27 10:16 | Consultation ---
History of Present Illness General Date patient seen: May 27, 2018 Chief Complaint: Abdominal Pain Reason for Consultation: abdominal pain Present Illness HPI 63 year old female with multiple medical comorbidities presented with abdominal pain, nausea, emesis. Was recently discharged after acute gouty attack. on steroids. improving but states since discharge has not had BM and has developed worsening abdominal pain. had episodes of emesis prior to admission and has intermittent nausea. on admission CT noted. surgery called to evaluate for abdominal pain. patient seen, chart reviewed, patient examined. Allergies: Coded Allergies: No Known Allergies (Unverified , 05/15/18) Medication History Scheduled Amitriptyline HCl (Amitriptyline HCl), 75 MG ORAL BEDTIME, (Reported) Atorvastatin Calcium* (Lipitor*), 10 MG ORAL DAILY, (Reported) Clopidogrel* (Clopidogrel*), 75 MG ORAL DAILY, (Reported) Docusate Sodium* (Colace*), 200 MG ORAL DAILY Ferrous Sulfate* (Ferrous Sulfate*), 325 MG ORAL TID Fluticasone Propionate* (Fluticasone Propionate*), 1 SPRAY NASAL DAILY, ( Reported) Folic Acid* (Folic Acid*), 1 MG ORAL DAILY, (Reported) Hydroxychloroquine Sulfate (Hydroxychloroquine Sulfate), 200 MG PO BID, ( Reported) Metformin Hcl* (Metformin Hcl*), 1,000 MG ORAL BID, (Reported) Methotrexate Sodium (Trexall), 12.5 MG PO Q FRIDAY, (Reported) Prednisone* (Prednisone*), 20 MG ORAL DAILY Scheduled PRN Hydrocodone Bit/Acetaminophen 5-325* ([place] 5-325*), 1 TAB ORAL Q4H PRN for For Pain, (Reported) Miscellaneous Medications Ipratropium/Albuterol Sulfate (Combivent Respimat Inhal [place]), 4 GM IH, ( Reported) Patient History History Provided By: Patient, Medical Record, PMD Healthcare decision maker Resuscitation status Full Code Advanced Directive on File No Past Medical/Surgical History Past Medical/Surgical History: (1) Diabetes (2) HTN (hypertension) (3) CVA (cerebral vascular accident) (4) Microcytic anemia (5) Rheumatoid arteritis (6) Rheumatoid arthritis (7) Abdominal pain (8) Constipation (9) GENERALIZED ABDOMINAL PAIN (10) SIRS OF NON-INFECTIOUS ORIGIN W/O ACUTE ORGAN DYSFUNCTION Review of Systems All Other Systems: negative except mentioned in HPI Physical Exam General Appearance: no apparent distress, alert Lines, tubes and drains: peripheral HEENT: normocephalic, atraumatic, mucous membranes moist Neck: normal inspection Respiratory/Chest: normal breath sounds, no respiratory distress, no accessory muscle use Cardiovascular/Chest: normal rate, regular rhythm Abdomen: normal bowel sounds, soft, distended, tender Extremities: normal inspection Skin Exam: warm/dry Neurologic: alert, oriented x 3 Last 24 Hour Vital Signs Date Time Temp Pulse Resp B/P (MAP) Pulse Ox O2 Delivery O2 Flow Rate FiO2 05/27/18 04:21 Room Air 05/27/18 01:15 97.0 83 18 129/81 99 Room Air 97.0 83 05/27/18 00:50 97.0 83 18 129/81 99 Room Air 97.0 97 05/26/18 23:13 99.1 05/26/18 22:45 97.0 97 18 150/79 98 Room Air 97.0 05/26/18 22:07 97.0 05/26/18 22:07 97.0 05/26/18 21:37 99.1 05/26/18 20:25 99.1 83 18 150/79 96 Room Air 99.1 05/26/18 20:15 99.1 104 18 150/79 96 Room Air 99.1 Intake and Output 05/26/18 05/27/18 19:00 07:00 Intake Total 3155 ml Balance 3155 ml Intake Oral 2000 ml IV Total 1155 ml # Voids 3 Laboratory Tests Test 05/26/18 21:11 05/26/18 21:45 05/27/18 04:05 05/27/18 07:55 White Blood Count 15.4 K/UL (4.8-10.8) H 19.0 K/UL (4.8-10.8) H Red Blood Count 4.14 M/UL (4.20-5.40) L 3.77 M/UL (4.20-5.40) L Hemoglobin 9.9 G/DL (12.0-16.0) L 9.3 G/DL (12.0-16.0) L Hematocrit 32.6 % (37.0-47.0) L 29.0 % (37.0-47.0) L Mean Corpuscular Volume 79 FL (80-99) L 77 FL (80-99) L Mean Corpuscular Hemoglobin 24.0 PG (27.0-31.0) L 24.6 PG (27.0-31.0) L Mean Corpuscular Hemoglobin Concent 30.5 G/DL (32.0-36.0) L 32.0 G/DL (32.0-36.0) Red Cell Distribution Width 20.8 % (11.6-14.8) H 21.5 % (11.6-14.8) H Platelet Count 750 K/UL (150-450) H 644 K/UL (150-450) H Mean Platelet Volume 5.6 FL (6.5-10.1) L 5.6 FL (6.5-10.1) L Neutrophils (%) (Auto) % (45.0-75.0) % (45.0-75.0) Lymphocytes (%) (Auto) % (20.0-45.0) % (20.0-45.0) Monocytes (%) (Auto) % (1.0-10.0) % (1.0-10.0) Eosinophils (%) (Auto) % (0.0-3.0) % (0.0-3.0) Basophils (%) (Auto) % (0.0-2.0) % (0.0-2.0) Differential Total Cells Counted 100 Neutrophils % (Manual) 87 % (45-75) H Pending Lymphocytes % (Manual) 10 % (20-45) L Pending Monocytes % (Manual) 3 % (1-10) Eosinophils % (Manual) 0 % (0-3) Basophils % (Manual) 0 % (0-2) Band Neutrophils 0 % (0-8) Platelet Estimate Increased H Pending Platelet Morphology Normal Pending Hypochromasia 1+ Anisocytosis 1+ Prothrombin Time 9.9 SEC (9.30-11.50) 10.0 SEC (9.30-11.50) Prothromb Time International Ratio 0.9 (0.9-1.1) 0.9 (0.9-1.1) Activated Partial Thromboplast Time 23 SEC (23-33) Sodium Level 139 MMOL/L (136-145) 140 MMOL/L (136-145) Potassium Level 4.7 MMOL/L (3.5-5.1) 4.6 MMOL/L (3.5-5.1) Chloride Level 103 MMOL/L (98-107) 108 MMOL/L (98-107) H Carbon Dioxide Level 26 MMOL/L (21-32) 26 MMOL/L (21-32) Anion Gap 10 mmol/L (5-15) 6 mmol/L (5-15) Blood Urea Nitrogen 14 mg/dL (7-18) 13 mg/dL (7-18) Creatinine 0.9 MG/DL (0.55-1.30) 0.8 MG/DL (0.55-1.30) Estimat Glomerular Filtration Rate > 60 mL/min (>60) > 60 mL/min (>60) Glucose Level 285 MG/DL (74-106) H 86 MG/DL (74-106) # Calcium Level 8.8 MG/DL (8.5-10.1) 7.9 MG/DL (8.5-10.1) L Total Bilirubin 0.1 MG/DL (0.2-1.0) L Aspartate Amino Transf (AST/SGOT) 10 U/L (15-37) L Alanine Aminotransferase (ALT/SGPT) 33 U/L (12-78) Alkaline Phosphatase 100 U/L (46-116) Total Protein 7.4 G/DL (6.4-8.2) Albumin 3.6 G/DL (3.4-5.0) Globulin 3.8 g/dL Albumin/Globulin Ratio 0.9 (1.0-2.7) L Lipase 129 U/L (73-393) Urine Color Pale yellow Urine Appearance Clear Urine pH 6.5 (4.5-8.0) Urine Specific [place] 1.010 (1.005-1.035) Urine Protein Negative (NEGATIVE) Urine Glucose (UA) 4+ (NEGATIVE) H Urine Ketones Negative (NEGATIVE) Urine Blood Negative (NEGATIVE) Urine Nitrite Negative (NEGATIVE) Urine Bilirubin Negative (NEGATIVE) Urine Urobilinogen Normal MG/DL (0.0-1.0) Urine Leukocyte Esterase 1+ (NEGATIVE) H Urine RBC 0-2 /HPF (0 - 2) Urine WBC 2-4 /HPF (0 - 2) Urine Squamous Epithelial Cells Few /LPF (NONE/OCC) Urine Bacteria Few /HPF (NONE) Reticulocyte Count 0.8 % (0.0-2.0) Iron Level 28 ug/dL (50-175) L Total Iron Binding Capacity 325 ug/dL (250-450) Percent Iron Saturation 9 % (15-50) L Unsaturated Iron Binding 297 ug/dL (112-346) Ferritin 31 NG/ML (8-388) Folate 17.6 NG/ML (8.6-58.9) Fibrinogen 216 mg/dL (200-400) Height (Feet): 5 Height (Inches): 4.00 Weight (Pounds): 164 Medications Current Medications Medications (Trade) Dose Ordered Sig/Ashlyn Route PRN Reason Start Time Stop Time Status Last Admin Dose Admin Amitriptyline HCl (Elavil) 75 mg BEDTIME ORAL 05/27/18 21:00 06/26/18 20:59 Atorvastatin Calcium (Lipitor) 10 mg DAILY ORAL 05/28/18 09:00 06/27/18 08:59 Clopidogrel Bisulfate (Plavix) 75 mg DAILY ORAL 05/28/18 09:00 06/27/18 08:59 Dextrose/Sodium Chloride 1,000 ml @ 75 mls/hr [id number] IV 05/27/18 03:30 06/26/18 03:29 05/27/18 05:14 Docusate Sodium (Colace) 200 mg DAILY ORAL 05/28/18 09:00 06/27/18 08:59 Famotidine (Pepcid) 20 mg DAILY ORAL 05/27/18 09:00 06/26/18 08:59 05/27/18 09:39 Ferrous Sulfate (Feosol) 325 mg TID ORAL 05/27/18 13:00 06/26/18 12:59 Fluticasone Propionate (Flonase) 1 spray DAILY NASAL 05/28/18 09:00 06/27/18 08:59 Folic Acid (Folate) 1 mg DAILY ORAL 05/28/18 09:00 06/27/18 08:59 Hydrocortisone (Hydrocortisone) 1 applic Q8HR TOPIC 05/27/18 14:00 06/26/18 13:59 Hydromorphone HCl (Dilaudid) 1 mg Q3H PRN IVP Severe Pain (Pain Scale 7-10) 05/27/18 02:30 06/03/18 02:29 05/27/18 09:41 Ondansetron HCl (Zofran) 4 mg Q6H PRN IVP Nausea & Vomiting 05/27/18 03:45 06/26/18 03:44 Piperacillin Sod/ Tazobactam Sod 4.5 gm/Sodium Chloride 110 ml @ 27.5 mls/hr Q8H IVPB 05/27/18 04:00 06/03/18 03:59 05/27/18 05:14 Prednisone (predniSONE) 20 mg DAILY ORAL 05/28/18 09:00 06/27/18 08:59 Assessment/Plan Problem List: (1) Constipation Assessment & Plan: CT noted. significant constipation. bowel regimen okay for clears ICD Codes: K59.00 - Constipation, unspecified SNOMED: [id number] Qualifiers: Qualified Codes: K59.00 - Constipation, unspecified (2) GENERALIZED ABDOMINAL PAIN Assessment & Plan: CT reviewed. no obstruction noted leukocytosis possibly due to steroids exam as above likely constipation -okay for clears -bowel regimen thank you. will follow with recs. ICD Codes: R10.84 - GENERALIZED ABDOMINAL PAIN Status: stable MarsRefugio juarezya May 27, 2018 10:16
[2018-05-27] MEDS ORDERED: Fleet's Enema 133ml RECTAL ONE (10:30)
[2018-05-27] MEDS ORDERED: D5 1/2NS 1000ml IV ONE (11:40)
[2018-05-27] MEDS ORDERED: NS 275ml ONE (11:40)
[2018-05-27 12:00] VITALS: BP 133/66
[2018-05-27] MEDS: Hydrocortisone 2.5% Oint 30gm TOPIC SCH ×2 (13:43→20:25)
--- NOTE | 2018-05-27 14:52 | Diagnostic Imaging Report ---
Indication: Abdominal pain, distention, nausea, vomiting Technique: De-scale and duplex images of the upper abdomen were obtained. Doppler interrogation of the hepatic vessels Comparison: none Findings: Gallbladder demonstrates small gallstones. Sonographic Hernández's sign is negative. Common bile duct measures 5 mm in diameter. No intrahepatic biliary ductal dilatation. Liver demonstrates normal echogenicity, no focal abnormality. Portal vein and hepatic veins are patent. Pancreas is unremarkable. Spleen is unremarkable. Left kidney measures 11.4 cm in length. Right kidney measures 10.4 cm length. Both kidneys demonstrate normal echogenicity. There is no hydronephrosis. No focal abnormality . Abdominal aorta is partially obscured by bowel gas, visualized portions are non-aneurysmal . Impression: Cholelithiasis. Negative for dilated bile ducts No other significant findings Note inability to visualize portions of the abdominal aorta
[2018-05-27 16:00] VITALS: BP 135/72
[2018-05-27] MEDS ORDERED: Albuterol ud Inhalation HHN PRN (18:36)
[2018-05-27 20:00] VITALS: BP 110/59
[2018-05-27] MEDS ORDERED: Simethicone 80mg tab ORAL PRN (23:00)
[2018-05-28] VITALS: BP 136/71
[2018-05-28] MEDS: HYDROmorphone 1mg/ml Carpuject IVP PRN ×4 (01:37→13:06)
[2018-05-28] MEDS: Zosyn 4.5gm q8h **Extended infusion IVPB SCH ×4 (03:30→11:05)
[2018-05-28 04:00] VITALS: BP 121/70
[2018-05-28] MEDS: Hydrocortisone 2.5% Oint 30gm TOPIC SCH ×2 (05:33→14:15)
[2018-05-28] MEDS: D5 1/2NS 1,000 ML IV SCH (05:37)
[2018-05-28 07:43] VITALS: BP 123/72
[2018-05-28 08:00] VITALS: BP 148/87
[2018-05-28 08:29] LABS: ANION GAP 11 mmol/L (5-15); BLOOD UREA NITROGEN 10 mg/dL (7-18); CALCIUM 8.3 MG/DL (8.5-10.1); CARBON DIOXIDE 25 MMOL/L (21-32); CHLORIDE 107 MMOL/L (98-107); CREATININE 0.8 MG/DL (0.55-1.30); POTASSIUM 4.3 MMOL/L (3.5-5.1); SODIUM 143 MMOL/L (136-145)
[2018-05-28] MEDS ORDERED: Flonase Nasal Inhaler 16gm NASAL SCH (09:00)
[2018-05-28] MEDS ORDERED: Docusate 100mg cap ORAL SCH (09:00)
[2018-05-28 09:44] LABS: BASOPHILS % (AUTO) 0.8 % (0.0-2.0); HEMATOCRIT 28.7 % (37.0-47.0); HEMOGLOBIN 9.1 G/DL (12.0-16.0); LYMPHOCYTES % (AUTO) 33.9 % (20.0-45.0); MEAN CORPUSCULAR VOLUME 77 FL (80-99); MONOCYTES % (AUTO) 5.7 % (1.0-10.0); NEUTROPHILS % (AUTO) 58.6 % (45.0-75.0); PLATELET COUNT 597 K/UL (150-450); RED CELL DISTRIBUTION WIDTH 21.7 % (11.6-14.8); WHITE BLOOD COUNT 16.6 K/UL (4.8-10.8)
[2018-05-28] MEDS ORDERED: IBUPROFEN200 MG ORAL (10:43)
--- NOTE | 2018-05-28 11:03 | General Surgery Progress Note ---
General Surgery-Progress Note Subjective Additional Comments states pain improving. no n/v/f/c. tolerating diet. had BM and feels better Objective Last 24 Hour Vital Signs Date Time Temp Pulse Resp B/P (MAP) Pulse Ox O2 Delivery O2 Flow Rate FiO2 05/28/18 10:11 97.9 05/28/18 09:41 97.9 05/28/18 07:43 97.9 84 20 123/72 (89) 98 97.9 05/28/18 07:39 Room Air 05/28/18 04:00 97.9 81 20 121/70 (87) 98 97.9 05/28/18 00:00 98.0 79 20 136/71 (92) 98 98.0 05/27/18 21:00 Room Air 05/27/18 20:10 77 18 Room Air 21 05/27/18 20:00 97.9 80 20 110/59 (76) 93 97.9 05/27/18 16:00 97.5 75 20 135/72 (93) 98 97.5 05/27/18 12:00 97.9 87 19 133/66 (88) 97 97.9 I&O Intake and Output 05/27/18 05/28/18 19:00 07:00 Intake Total 1015 ml 1017.5 ml Output Total 1100 ml Balance 1015 ml -82.5 ml Intake Oral 940 ml IV Total 75 ml 1017.5 ml Output Urine Total 1100 ml # Voids 5 # Bowel Movements 2 1 Drains: none Cardiovascular: RSR Respiratory: clear Abdomen: soft, distended, non-tender, present bowel sounds Extremities: no cyanosis Laboratory Tests Test 05/28/18 07:40 05/28/18 08:30 Sodium Level 143 MMOL/L (136-145) Potassium Level 4.3 MMOL/L (3.5-5.1) Chloride Level 107 MMOL/L (98-107) Carbon Dioxide Level 25 MMOL/L (21-32) Anion Gap 11 mmol/L (5-15) Blood Urea Nitrogen 10 mg/dL (7-18) Creatinine 0.8 MG/DL (0.55-1.30) Estimat Glomerular Filtration Rate > 60 mL/min (>60) Glucose Level 139 MG/DL (74-106) H Calcium Level 8.3 MG/DL (8.5-10.1) L White Blood Count 16.6 K/UL (4.8-10.8) H Red Blood Count 3.70 M/UL (4.20-5.40) L Hemoglobin 9.1 G/DL (12.0-16.0) L Hematocrit 28.7 % (37.0-47.0) L Mean Corpuscular Volume 77 FL (80-99) L Mean Corpuscular Hemoglobin 24.5 PG (27.0-31.0) L Mean Corpuscular Hemoglobin Concent 31.6 G/DL (32.0-36.0) L Red Cell Distribution Width 21.7 % (11.6-14.8) H Platelet Count 597 K/UL (150-450) H Mean Platelet Volume 5.8 FL (6.5-10.1) L Neutrophils (%) (Auto) 58.6 % (45.0-75.0) Lymphocytes (%) (Auto) 33.9 % (20.0-45.0) Monocytes (%) (Auto) 5.7 % (1.0-10.0) Eosinophils (%) (Auto) 1.0 % (0.0-3.0) Basophils (%) (Auto) 0.8 % (0.0-2.0) Plan Problems: (1) Constipation Assessment & Plan: CT noted. significant constipation. bowel regimen okay for clears (2) GENERALIZED ABDOMINAL PAIN Assessment & Plan: CT reviewed. no obstruction noted leukocytosis possibly due to steroids exam as above likely constipation -diet as tolerated -bowel regimen thank you. will follow with nancy. Nick Aguilar May 28, 2018 11:03
--- NOTE | 2018-05-28 11:32 | Discharge Summary ---
Discharge Summary Hospital Course Date of Admission May 26, 2018 at 22:59 Date of Discharge Admitting Diagnosis ABDOMINAL PAIN HPI Shae Chavis is a 63 year old female who was admitted on May 26, 2018 at 22: 59 for Abdominal Pain 63 year old woman with history of RA, type 2 DM, history of stroke with residual right-sided weakness presents for no bowel movement for 6 days. She states she was discharged last week for a RA flare. She was started on a prednisone taper. She went home and did not have any bowel movement. She is passing gas. Pt states she has an appetite and is asking to eat breakfast. Consultations Gen Surgery Hospital Course Pt was admitted for further care for concern of possible bowel obstruction. However this was ruled out as pt was passing gas and CT abdomen/pelvis was wnl. Pt was evaluated by gen surgery who agreed w the plan to advance diet and gauge response. Pt tolerated diet and actually had 2 bms on 05/27. Plan will be to discharge home w/ home health and PT. Discharge Medications New Medications: Ibuprofen (Ibuprofen*) 200 Mg Tablet 200 MG ORAL FOUR TIMES A DAY, #30 TAB 0 Refills Continued Medications: Amitriptyline HCl (Amitriptyline HCl) 100 Mg Tablet 75 MG ORAL BEDTIME, TAB (This prescription has been renewed) Atorvastatin Calcium* (Lipitor*) 10 Mg Tablet 10 MG ORAL DAILY, #30 TAB 0 Refills (This prescription has been renewed) Clopidogrel* (Clopidogrel*) 75 Mg Tablet 75 MG ORAL DAILY, TAB (This prescription has been renewed) Docusate Sodium* (Colace*) 100 Mg Capsule 200 MG ORAL DAILY for 30 Days, #120 CAP 0 Refills Ferrous Sulfate* (Ferrous Sulfate*) 325 Mg Tablet 325 MG ORAL TID for 30 Days, #90 TAB 0 Refills Fluticasone Propionate* (Fluticasone Propionate*) 16 Gm [place].susp 1 SPRAY NASAL DAILY, EA (This prescription has been renewed) Folic Acid* (Folic Acid*) 1 Mg Tablet 1 MG ORAL DAILY, TAB (This prescription has been renewed) Hydroxychloroquine Sulfate (Hydroxychloroquine Sulfate) 200 Mg Tablet 200 MG PO BID, TAB (This prescription has been renewed) Ipratropium/Albuterol Sulfate (Combivent Respimat Inhal [place]) 4 Gm [place].inhal 4 GM IH, GM (This prescription has been renewed) Metformin Hcl* (Metformin Hcl*) 1,000 Mg Tablet 1000 MG ORAL BID, TAB (This prescription has been renewed) Methotrexate Sodium (Trexall) 5 Mg Tablet 12.5 MG PO Q FRIDAY, TAB (This prescription has been renewed) Prednisone* (Prednisone*) 20 Mg Tablet 20 MG ORAL DAILY, #41 TAB take three tablets x 5 days, then 2 tablets x 7 days then, 1 tablet for 7 days, then 1/2 tablet for 10 days Discontinued Medications: Hydrocodone Bit/Acetaminophen 5-325* ([place] 5-325*) 1 Each Tablet 1 TAB ORAL Q4H PRN for For Pain, TAB 0 Refills Discharge Discharge Disposition Patient was discharged to Home (01) Raphael Edmond D.O. May 28, 2018 11:32
[2018-05-28] MEDS ORDERED: D5 1/2NS 1000ml IV ONE (11:38)
--- NOTE | 2018-05-28 14:21 | Diagnostic Imaging Report ---
Indication: Abdominal pain Comparison: None Single view of the abdomen obtained Findings: Bowel gas pattern is nonspecific. No mass, ectopic calcifications, or abnormal gas collections are identified. The bones are unremarkable. Impression: No acute findings
--- NOTE | 2018-05-28 19:33 | General Progress Note ---
Assessment/Plan Assessment/Plan # Anemia of iron deficiency. cause yet unknown but ferritin <50, requires iron supplementation --> Anemia w/u has been reviewed rom prior admission. Trend CBC as needed. --> currently no evidence of hemolysis noted --> Ferritin at 16 (ON LAST ADMISSION) --> Hgb goal above 7, tranfuse as needed --> IV iron x 5 days IV completed --> Pt on folic acid --> Consider GI eval, can also be outpatient --> outpatient po iron # Thrombocytosis. Reactive process and will improve once exacerbant is removed. --> JAK2 pending, peripheral smear has been reviewed, no evidence of hemolysis --> Cont to monitor PLT count for improvement # Leukocytosis. is potentially related to steriod use. --> Cont to monitor WBC for improvement. --> Currently, not on abx # RA flare up. Acute flare up of rheumatoid arthritis, admit to medical service for IV steroids --> improved from prior admission # DM2, sugars likely will be uncontrolled due to steroids, will hold metformin and start lispro coverage. --> on novolog sliding scale # History of CVA with mild chronic right sided weakness --> continue Plavix # Current smoker, cessation advised, nicotine patch prn I GREATLY APPRECIATE THE CONSULTATION. Subjective Constitutional: Reports: no symptoms HEENT: Reports: no symptoms Cardiovascular: Reports: no symptoms Respiratory: Reports: no symptoms Gastrointestinal/Abdominal: Reports: no symptoms Genitourinary: Reports: no symptoms Neurologic/Psychiatric: Reports: no symptoms Endocrine: Reports: no symptoms Hematologic/Lymphatic: Reports: anemia Allergies: Coded Allergies: No Known Allergies (Unverified , 05/15/18) Subjective potential dc today Objective Last 24 Hour Vital Signs Date Time Temp Pulse Resp B/P (MAP) Pulse Ox O2 Delivery O2 Flow Rate FiO2 05/28/18 13:36 97.9 05/28/18 13:06 97.9 05/28/18 09:41 97.9 05/28/18 08:00 97.9 85 20 148/87 (107) 98 97.9 05/28/18 07:43 97.9 84 20 123/72 (89) 98 97.9 05/28/18 07:39 Room Air 05/28/18 04:00 97.9 81 20 121/70 (87) 98 97.9 05/28/18 00:00 98.0 79 20 136/71 (92) 98 98.0 05/27/18 21:00 Room Air 05/27/18 20:10 77 18 Room Air 21 05/27/18 20:00 97.9 80 20 110/59 (76) 93 97.9 Intake and Output 05/27/18 05/28/18 19:00 07:00 Intake Total 1015 ml 1120.0 ml Output Total 1100 ml Balance 1015 ml 20.0 ml Intake Oral 940 ml IV Total 75 ml 1120.0 ml Output Urine Total 1100 ml # Voids 5 # Bowel Movements 2 1 Laboratory Tests 05/28/18 07:40: Sodium Level 143, Potassium Level 4.3, Chloride Level 107, Carbon Dioxide Level 25, Anion Gap 11, Blood Urea Nitrogen 10, Creatinine 0.8, Estimat Glomerular Filtration Rate > 60, Glucose Level 139H, Calcium Level 8.3L 05/28/18 08:30: White Blood Count 16.6H, Red Blood Count 3.70L, Hemoglobin 9.1L, Hematocrit 28.7L, Mean Corpuscular Volume 77L, Mean Corpuscular Hemoglobin 24.5L, Mean Corpuscular Hemoglobin Concent 31.6L, Red Cell Distribution Width 21.7H, Platelet Count 597H, Mean Platelet Volume 5.8L, Neutrophils (%) (Auto) 58.6, Lymphocytes (%) (Auto) 33.9, Monocytes (%) (Auto) 5.7, Eosinophils (%) (Auto) 1.0, Basophils (%) (Auto) 0.8 Height (Feet): 5 Height (Inches): 4.00 Weight (Pounds): 164 General Appearance: no apparent distress EENT: TMs normal Neck: supple Cardiovascular: normal rate Respiratory/Chest: no respiratory distress Abdomen: no organomegaly Extremities: non-tender Edema: 1+ Leg (L), 1+ Leg (R) Neurologic: alert Skin: warm/dry Lauro Cai MD May 28, 2018 19:33
== END 2018-05-28 14:40 | disposition home or self-care (01) | DRG 251 ==
LOC: EMR 20:41 → 4E 22:59 → EDBEDREQ 23:36
DX: R10.9 Unspecified abdominal pain (principal); I69.351 Hemiplegia and hemiparesis following cerebral infarction affecting right dominant side; E11.9 Type 2 diabetes mellitus without complications; D47.3 Essential (hemorrhagic) thrombocythemia; D50.9 Iron deficiency anemia, unspecified; D72.829 Elevated white blood cell count, unspecified; T38.0X5A Adverse effect of glucocorticoids and synthetic analogues, initial encounter; F17.200 Nicotine dependence, unspecified, uncomplicated; K59.00 Constipation, unspecified; M06.9 Rheumatoid arthritis, unspecified
CPT/HCPCS: 36415; 74018; 74176; 76700; 80048; 80053; 81003; 82270; 82728; 82746; 83540; 83550; 83690; 85007; 85025; 85044; 85060; 85384; 85610; 85730; 87081; 94664; 96361; 96365; 96375; 99285; J2405

== ENCOUNTER → 2018-06-25 | Emergency (ER) | payer MEDICAID ==
[~2018-06-25] VITALS: Ht 162.6 cm; Wt 73.5 kg
[~2018-06-25] MED LIST changes: +IBUPROFEN200 MG ORAL; +VALIUM5 MG ORAL
[2018-06-25 15:00] VITALS: BP 131/69
--- NOTE | 2018-06-25 15:12 | Emergency Room Report ---
History of Present Illness General Chief Complaint: Upper Extremity Injury Source: Patient (JENNA PATINO) Present Illness HPI this is a 63-year-old female who complains of moderate left neck pain that started when she woke up 3 days ago. She states it's worse on neck movement. Denies any trauma. Denies any radiation. No numbness or or tingling. Dull pain. (JENNA PATINO) Allergies: Coded Allergies: No Known Allergies (Unverified , 05/15/18) Patient History Last Menstrual Period: na (JENNA PATINO) Nursing Documentation-[facility] Hx Cardiac Problems: Yes Hx Hypertension: Yes Hx Asthma: Yes Hx COPD: Yes Hx Diabetes: Yes Hx Cancer: No Hx Gastrointestinal Problems: Yes Hx Neurological Problems: Yes - arthritis Hx Cerebrovascular Accident: Yes - 2016 Hx Weakness: Yes (JENNA PATINO) Review of Systems All Other Systems: negative except mentioned in HPI (JENNA PATINO) Physical Exam Vital Signs Date Time Temp Pulse Resp B/P (MAP) Pulse Ox O2 Delivery O2 Flow Rate FiO2 06/25/18 14:46 98.1 97 18 131/69 98 Room Air Sp02 EP Interpretation: reviewed, normal General Appearance: no apparent distress, alert, GCS 15, non-toxic Head: normocephalic, atraumatic ENT: hearing grossly normal, normal pharynx, no angioedema, normal voice Neck: other - There is tenderness along the sternocleidomastoid muscle. no midline ternderness Respiratory: chest non-tender, lungs clear, normal breath sounds, speaking full sentences Cardiovascular #1: regular rate, rhythm, no edema Gastrointestinal: normal bowel sounds, non tender, soft, non-distended, no guarding, no rebound Neurologic: alert, oriented x3, responsive, motor strength/tone normal, sensory intact, speech normal (JENNA PATINO) Medical Decision Making PA Attestation by my physician assista (JENNA PATINO) Diagnostic Impression: Primary Impression: Muscle spasm Last Vital Signs Date Time Temp Pulse Resp B/P (MAP) Pulse Ox O2 Delivery O2 Flow Rate FiO2 06/25/18 14:46 98.1 97 18 131/69 98 Room Air Status: improved (JENNA PATINO) Disposition: HOME, SELF-CARE Condition: Stable Scripts Diazepam* (VALIUM*) 5 Mg Tablet 5 MG ORAL TID PRN for ANXIETY, #15 TAB 0 Refills Prov: Ej Oreilly 06/25/18 Patient Instructions: Muscle Cramps and Spasms JENNA PATINO Jun 25, 2018 15:12 Ej Oreilly Jun 25, 2018 15:36
== END | disposition home or self-care (01) ==
LOC: EMR 15:22
DX: M62.838 Other muscle spasm (principal); M54.2 Cervicalgia; I10 Essential (primary) hypertension; J44.9 Chronic obstructive pulmonary disease, unspecified; E11.9 Type 2 diabetes mellitus without complications; Z86.73 Personal history of transient ischemic attack (TIA), and cerebral infarction without residual deficits
CPT/HCPCS: 99282

== ENCOUNTER 2018-07-11 13:34 | Inpatient (IN) | payer MEDICAID ==
[~2018-07-11] VITALS: Ht 162.6 cm; Wt 76.7 kg
[2018-07-11] MEDS ORDERED: Solu-MEDROL 125mg Inj IVP ONE (14:00)
[2018-07-11] MEDS ORDERED: Albuterol/Ipratropium 3ml neb HHN ONE ×2 (14:00→16:15)
--- NOTE | 2018-07-11 14:04 | Emergency Room Report ---
History of Present Illness General Chief Complaint: Upper Respiratory Illness Source: Patient Present Illness HPI Patient reports having increased cough productive of the small amount of blood. The patient had a prior history of rheumatoid arthritis. Patient recently had medications adjusted. Patient reports having new pain to her left upper extremity. The patient denies any fever. She had been having generalized body aches and weakness. Allergies: Coded Allergies: No Known Allergies (Unverified , 05/15/18) Patient History Past Medical History: see triage record Reviewed Nursing Documentation: PMH: Agreed; PSxH: Agreed Nursing Documentation-PMH Hx Cardiac Problems: Yes Hx Hypertension: Yes Hx Asthma: Yes Hx COPD: Yes Hx Diabetes: Yes Hx Cancer: No Hx Gastrointestinal Problems: Yes Hx Dialysis: No History Of Psychiatric Problem: No Hx Neurological Problems: Yes - RA Hx Cerebrovascular Accident: Yes - 2016 Hx Weakness: Yes Review of Systems All Other Systems: negative except mentioned in HPI Physical Exam Vital Signs Date Time Temp Pulse Resp B/P (MAP) Pulse Ox O2 Delivery O2 Flow Rate FiO2 07/11/18 13:55 98.1 96 20 139/81 95 Room Air Sp02 EP Interpretation: reviewed, normal General Appearance: normal inspection, alert, GCS 15, mild distress, Chronically Ill Head: atraumatic ENT: normal ENT inspection, hearing grossly normal, normal voice Neck: normal inspection, supple, no bony tend, limited range of motion Respiratory: normal inspection, no respiratory distress, no retraction, accessory muscle use, wheezing Cardiovascular #1: no edema, tachycardia Gastrointestinal: normal inspection, normal bowel sounds, non tender, soft, no guarding, no hernia Genitourinary: no CVA tenderness Musculoskeletal: back normal, normal range of motion Neurologic: normal inspection, alert, oriented x3, responsive, speech normal Psychiatric: normal inspection, judgement/insight normal, mood/affect normal Skin: no rash Medical Decision Making Diagnostic Impression: Primary Impression: Rheumatoid arteritis Additional Impressions: COPD with exacerbation Hemoptysis ER Course Patient presented for hemoptysis. Differential diagnosis included was not limited to the bronchitis, pneumonia, coagulopathy, granulomatous disease, congestive heart failure among others.Because of complexity of patient's case laboratory testing and imaging studies were ordered.The patient noted have increased difficulty breathing. She is given breathing treatments as well as IV steroids. Given pain medications for increased arthritic pain. The laboratory testing was notable for normal white blood count as well as adequate hemoglobin. The chest x-ray one view read by radiology showed no evidence of acute infiltrate. The patient was subsequently noted to have the the influenza A on laboratory testing. The patient was given Tamiflu. Dr. Solitario was contacted for Dr. Henry for inpatient management. Labs Test 07/11/18 14:30 07/11/18 14:36 07/11/18 14:45 Urine Color Yellow Urine Appearance Clear Urine pH 7 (4.5-8.0) Urine Specific [place] 1.005 (1.005-1.035) Urine Protein Negative (NEGATIVE) Urine Glucose (UA) Negative (NEGATIVE) Urine Ketones Negative (NEGATIVE) Urine Blood Negative (NEGATIVE) Urine Nitrite Negative (NEGATIVE) Urine Bilirubin Negative (NEGATIVE) Urine Urobilinogen 1 MG/DL (0.0-1.0) Urine Leukocyte Esterase 1+ (NEGATIVE) Urine RBC 0-2 /HPF (0 - 2) Urine WBC 2-4 /HPF (0 - 2) Urine Squamous Epithelial Cells Moderate /LPF (NONE/OCC) Urine Amorphous Sediment Few /LPF (NONE) Urine Bacteria Moderate /HPF (NONE) Urine Yeast Few /HPF (NONE) Lactic Acid Level 1.20 mmol/L (0.4-2.0) White Blood Count 10.0 K/UL (4.8-10.8) Red Blood Count 4.30 M/UL (4.20-5.40) Hemoglobin 11.1 G/DL (12.0-16.0) Hematocrit 34.8 % (37.0-47.0) Mean Corpuscular Volume 81 FL (80-99) Mean Corpuscular Hemoglobin 25.7 PG (27.0-31.0) Mean Corpuscular Hemoglobin Concent 31.8 G/DL (32.0-36.0) Red Cell Distribution Width 20.9 % (11.6-14.8) Platelet Count 580 K/UL (150-450) Mean Platelet Volume 5.6 FL (6.5-10.1) Neutrophils (%) (Auto) 61.7 % (45.0-75.0) Lymphocytes (%) (Auto) 23.7 % (20.0-45.0) Monocytes (%) (Auto) 9.2 % (1.0-10.0) Eosinophils (%) (Auto) 4.2 % (0.0-3.0) Basophils (%) (Auto) 1.2 % (0.0-2.0) Prothrombin Time 9.5 SEC (9.30-11.50) Prothromb Time International Ratio 0.9 (0.9-1.1) Activated Partial Thromboplast Time 25 SEC (23-33) Sodium Level 141 MMOL/L (136-145) Potassium Level 4.0 MMOL/L (3.5-5.1) Chloride Level 105 MMOL/L (98-107) Carbon Dioxide Level 28 MMOL/L (21-32) Anion Gap 9 mmol/L (5-15) Blood Urea Nitrogen 10 mg/dL (7-18) Creatinine 0.8 MG/DL (0.55-1.30) Estimat Glomerular Filtration Rate > 60 mL/min (>60) Glucose Level 115 MG/DL (74-106) Calcium Level 8.8 MG/DL (8.5-10.1) Total Bilirubin 0.2 MG/DL (0.2-1.0) Aspartate Amino Transf (AST/SGOT) 14 U/L (15-37) Alanine Aminotransferase (ALT/SGPT) 24 U/L (12-78) Alkaline Phosphatase 101 U/L (46-116) Total Creatine Kinase 70 U/L (26-308) Creatine Kinase MB 2.9 NG/ML (0.0-3.6) Creatine Kinase MB Relative Index 4.1 Troponin I 0.000 ng/mL (0.000-0.056) Pro-B-Type Natriuretic Peptide 31 pg/mL (0-125) Total Protein 7.6 G/DL (6.4-8.2) Albumin 3.2 G/DL (3.4-5.0) Globulin 4.4 g/dL Albumin/Globulin Ratio 0.7 (1.0-2.7) Last Vital Signs Date Time Temp Pulse Resp B/P (MAP) Pulse Ox O2 Delivery O2 Flow Rate FiO2 07/11/18 13:55 98.1 96 20 139/81 95 Room Air Status: improved Disposition: ADMITTED INPATIENT Condition: Serious Reji Mora MD Jul 11, 2018 14:04
[2018-07-11] MEDS ORDERED: Norco 5mg/325mg tab ORAL ONE (14:15)
[2018-07-11] MEDS ORDERED: Sodium Chloride 500ML 500 ML IV ONE (14:15)
[2018-07-11 14:55] VITALS: BP 149/85
[2018-07-11 15:23] LABS: ANION GAP 9 mmol/L (5-15); BLOOD UREA NITROGEN 10 mg/dL (7-18); CALCIUM 8.8 MG/DL (8.5-10.1); CARBON DIOXIDE 28 MMOL/L (21-32); CHLORIDE 105 MMOL/L (98-107); CREATININE 0.8 MG/DL (0.55-1.30); SODIUM 141 MMOL/L (136-145)
[2018-07-11 15:25] LABS: BASOPHILS % (AUTO) 1.2 % (0.0-2.0); EOSINOPHILS % (AUTO) 4.2 % (0.0-3.0); HEMATOCRIT 34.8 % (37.0-47.0); HEMOGLOBIN 11.1 G/DL (12.0-16.0); LYMPHOCYTES % (AUTO) 23.7 % (20.0-45.0); MEAN CORPUSCULAR VOLUME 81 FL (80-99); MONOCYTES % (AUTO) 9.2 % (1.0-10.0); NEUTROPHILS % (AUTO) 61.7 % (45.0-75.0); PLATELET COUNT 580 K/UL (150-450); RED CELL DISTRIBUTION WIDTH 20.9 % (11.6-14.8)
[2018-07-11] MEDS ORDERED: Isovue-370 150ml vial INJ PRN (15:30)
--- NOTE | 2018-07-11 15:30 | Diagnostic Imaging Report ---
EXAM: XR Chest, 1 View CLINICAL HISTORY: SOB TECHNIQUE: Frontal view of the chest. COMPARISON: No relevant prior studies available. FINDINGS: Lungs: Mild vascular congestion. No consolidation. Pleural space: Unremarkable. No pneumothorax. Heart: Unremarkable. No cardiomegaly. Mediastinum: Unremarkable. Bones/joints: Unremarkable. IMPRESSION: Mild vascular congestion. No consolidation.
[2018-07-11 15:34] LABS: INR 0.9 (0.9-1.1)
[2018-07-11 15:37] LABS: ALANINE AMINOTRANSFERASE 24 U/L (12-78); ALBUMIN 3.2 G/DL (3.4-5.0); ALBUMIN/GLOBULIN RATIO 0.7 (1.0-2.7); ALKALINE PHOSPHATASE 101 U/L (46-116); ASPARTATE AMINO TRANSFERASE 14 U/L (15-37); BILIRUBIN,TOTAL 0.2 MG/DL (0.2-1.0); CKMB 2.9 NG/ML (0.0-3.6); CREATINE KINASE 70 U/L (26-308)
[2018-07-11 15:53] LABS: APPEARANCE,URINE CLEAR; BILIRUBIN, URINE NEGATIVE (NEGATIVE); GLUCOSE, URINE (UA) NEGATIVE (NEGATIVE); KETONES,URINE NEGATIVE (NEGATIVE); LEUKOCYTE ESTERASE ,URINE 1+ (NEGATIVE); NITRITE,URINE NEGATIVE (NEGATIVE); PH,URINE 7 (4.5-8.0); PROTEIN,URINE NEGATIVE (NEGATIVE); UROBILINOGEN,URINE 1 MG/DL (0.0-1.0)
[2018-07-11 15:57] LABS: COLOR,URINE YELLOW
[2018-07-11 16:06] VITALS: BP 146/75
[2018-07-11] MEDS ORDERED: Morphine Sulfate 4mg/ml Inj (IV/IM USE ONLY) ONE (16:12)
[2018-07-11] MEDS ORDERED: Morphine Sulfate 4mg/ml Inj (IV/IM USE ONLY) IVP ONE (16:15)
[2018-07-11] MEDS ORDERED: Fluconazole 100mg tab ORAL ONE (16:30)
[2018-07-11] MEDS ORDERED: AMITRIPTYLINE75 MG ORAL (17:31)
[2018-07-11] MEDS ORDERED: FOLIC ACID1 MG ORAL (17:36)
[2018-07-11] MEDS ORDERED: DOCUSATE SODIU100 MG ORAL (17:36)
[2018-07-11] MEDS ORDERED: FERROUS SULFAT325 MG ORAL (17:36)
[2018-07-11] MEDS ORDERED: NORCO 10-325 T1 EACH ORAL (17:36)
[2018-07-11] MEDS ORDERED: ALBUTEROL SULF8.5 GM INH (17:36)
[2018-07-11] MEDS ORDERED: METHOTREXATE2.5 MG PO (17:43)
[2018-07-11] MEDS ORDERED: DiphenhydrAMINE 50mg/ml Inj IVP ONE (17:45)
--- NOTE | 2018-07-11 17:54 | Diagnostic Imaging Report ---
EXAM: CT Chest With Intravenous Contrast CLINICAL HISTORY: CP TECHNIQUE: Axial computed tomography images of the chest with intravenous contrast during the arterial phase of enhancement. CTDI is 154.11 mGy and DLP is 948 mGy-cm. One or more of the following dose reduction techniques were used: automated exposure control, adjustment of the mA and/or kV according to patient size, use of iterative reconstruction technique. COMPARISON: No relevant prior studies available. FINDINGS: Pulmonary arteries technically limited assessment due to bolus timing. No clear PE. Aorta: Atherosclerosis. No aneurysm. No dissection or other acute syndrome. Lungs: Upper lobe-predominant paraseptal emphysema. Mild, subsegmental atelectasis. Pleural space: No significant effusion. No pneumothorax. Heart: Coronary atherosclerosis. Bones/joints: No acute fracture. Soft tissues: Small sliding-type hiatal hernia. Probable cholelithiasis. Lymph nodes: Unremarkable. No enlarged lymph nodes. IMPRESSION: No clear PE on limited assessment. Coronary atherosclerosis. Emphysema. Suspect cholelithiasis.
[2018-07-11 17:56] VITALS: BP 132/83
[2018-07-11] MEDS ORDERED: Oseltamivir 75mg cap ORAL SCH (18:15)
[2018-07-11 20:00] VITALS: BP 142/86
[2018-07-11] MEDS ORDERED: Norco 5mg/325mg tab ORAL PRN (21:15)
[2018-07-11] MEDS: Norco 5mg/325mg tab ORAL PRN (21:49)
[2018-07-11] MEDS: Azithromycin 500 MG in D5W 275 ML IV SCH (23:33)
[2018-07-12] VITALS: BP 147/80
[2018-07-12] MEDS: Solu-MEDROL 125mg Inj IVP SCH ×4 (00:10→17:22)
[2018-07-12] MEDS: Albuterol/Ipratropium 3ml neb HHN PRN (01:40)
[2018-07-12] MEDS: Norco 5mg/325mg tab ORAL PRN ×2 (02:35→08:33)
[2018-07-12] MEDS: Guaifenesin/DM 10ml syrup ORAL PRN (03:31)
[2018-07-12 04:00] VITALS: BP 145/82
[2018-07-12] MEDS: NovoLOG Insulin Flexpen SUBQ SCH ×4 (05:51→21:36)
[2018-07-12 08:00] VITALS: BP 162/90
[2018-07-12] MEDS: Oseltamivir 75mg cap ORAL SCH ×2 (08:27→21:32)
[2018-07-12 09:00] LABS: HEMATOCRIT 34.1 % (37.0-47.0); HEMOGLOBIN 10.9 G/DL (12.0-16.0); MEAN CORPUSCULAR VOLUME 81 FL (80-99); PLATELET COUNT 562 K/UL (150-450); RED BLOOD COUNT 4.21 M/UL (4.20-5.40); RED CELL DISTRIBUTION WIDTH 20.8 % (11.6-14.8); WHITE BLOOD COUNT 10.8 K/UL (4.8-10.8)
[2018-07-12] MEDS ORDERED: Oseltamivir 75mg cap ORAL SCH (09:00)
[2018-07-12] MEDS ORDERED: NS 275ml ONE ×2 (09:11→09:47)
[2018-07-12] MEDS ORDERED: Tubing IV Secondary IV ONE ×2 (09:11→09:47)
[2018-07-12 09:43] LABS: ALANINE AMINOTRANSFERASE 23 U/L (12-78); ALBUMIN 3.2 G/DL (3.4-5.0); ALBUMIN/GLOBULIN RATIO 0.7 (1.0-2.7); ALKALINE PHOSPHATASE 98 U/L (46-116); ANION GAP 10 mmol/L (5-15); ASPARTATE AMINO TRANSFERASE 14 U/L (15-37); BILIRUBIN,TOTAL 0.2 MG/DL (0.2-1.0); BLOOD UREA NITROGEN 11 mg/dL (7-18); CALCIUM 8.8 MG/DL (8.5-10.1); CARBON DIOXIDE 25 MMOL/L (21-32); CHLORIDE 100 MMOL/L (98-107); CREATININE 0.8 MG/DL (0.55-1.30); POTASSIUM 4.2 MMOL/L (3.5-5.1); SODIUM 135 MMOL/L (136-145)
--- NOTE | 2018-07-12 10:02 | History and Physical ---
History of Present Illness General Date patient seen: Jul 12, 2018 Time patient seen: 09:52 Reason for Hospitalization: Upper Respiratory Illness Present Illness HPI 63 yo female with h/o RA presents with complaints of sob, coughs, subjective fevers and chills. Patient states that her cough has been worsening for the past 3 days. Admits to chest pain from coughing, states her grandson was recently sick and around her. Patient lives with her daughter in an apartment. Patient is compliant with her medications at home. Currently states she is having difficulty breathing however improves with breathing tx. Influenza test was done in the ED, returned Positive. patient started on tamiflu , breathing tx, and abx. social hx: smokes half ppd, denies alcohol or drug use family hx: reviewed, states her father has DM code status reviewed, full code. ROS: 14 point ros completed and negative except for the abov e Allergies: Coded Allergies: No Known Allergies (Unverified , 05/15/18) Medication History Scheduled Amitriptyline HCl (Elavil*), 75 MG ORAL BEDTIME, (Reported) Atorvastatin Calcium* (Lipitor*), 10 MG ORAL DAILY, (Reported) Clopidogrel* (Clopidogrel*), 75 MG ORAL DAILY, (Reported) Docusate Sodium* (Docusate Sodium*), 200 MG ORAL TWICE A DAY, (Reported) Ferrous Sulfate* (Ferrous Sulfate*), 325 MG ORAL TWICE A DAY, (Reported) Folic Acid* (Folic Acid*), 1 MG ORAL 6xwk, (Reported) Hydroxychloroquine Sulfate (Hydroxychloroquine Sulfate), 200 MG PO BID, ( Reported) Metformin Hcl* (Metformin Hcl*), 1,000 MG ORAL BID, (Reported) Methotrexate Sodium* (Methotrexate*), 12.5 MG PO qSat, (Reported) Scheduled PRN Albuterol Sulfate* (Albuterol Sulfate Mdi*), 2 PUFF INH Q4H PRN for Shortness of Breath, (Reported) Diazepam* (Valium*), 5 MG ORAL TID PRN for ANXIETY Hydrocodone Bit/Acetaminophen 10-325* ([place] 10-325*), 2 TAB ORAL Q4H PRN for For Pain, (Reported) Discontinued Medications Fluticasone Propionate* (Fluticasone Propionate*), 1 SPRAY NASAL DAILY, ( Reported) Discontinued Reason: Pt stopped taking med Ibuprofen (Ibuprofen*), 200 MG ORAL FOUR TIMES A DAY Discontinued Reason: Pt stopped taking med Ipratropium/Albuterol Sulfate (Combivent Respimat Inhal [place]), 4 GM IH, ( Reported) Discontinued Reason: Pt stopped taking med Prednisone* (Prednisone*), 20 MG ORAL DAILY Discontinued Reason: Therapy completed Patient History History Provided By: Patient Healthcare decision maker Resuscitation status Full Code Advanced Directive on File No Family History Family History: Father with DM Physical Exam General Appearance: WD/WN, mild distress Lines, tubes and drains: peripheral HEENT: normocephalic, atraumatic Neck: non-tender, normal alignment, supple, normal inspection Respiratory/Chest: chest wall non-tender, no respiratory distress, no accessory muscle use, other - mild exp wheezing apprecaited Cardiovascular/Chest: normal peripheral pulses, normal rate, regular rhythm Abdomen: normal bowel sounds, non tender, soft, no organomegaly, no mass Extremities: normal range of motion, non-tender, normal inspection, no calf tenderness Skin Exam: normal pigmentation, warm/dry, cyanotic Neurologic: amplifier mechanic II-XII grossly normal, no motor/sensory deficits, alert, oriented x 3 Last 24 Hour Vital Signs Date Time Temp Pulse Resp B/P (MAP) Pulse Ox O2 Delivery O2 Flow Rate FiO2 07/12/18 04:00 97.3 104 18 145/82 (103) 95 07/12/18 04:00 106 07/12/18 01:52 111 15 99 Room Air 07/12/18 01:40 105 20 95 Room Air 07/12/18 01:40 105 20 Room Air 07/12/18 00:00 112 07/12/18 00:00 98.2 116 18 147/80 (102) 94 07/11/18 21:01 Room Air 07/11/18 20:00 103 07/11/18 20:00 98.1 103 18 142/86 (104) 97 07/11/18 19:40 97.4 102 19 132/83 99 Room Air 21 07/11/18 17:56 97.4 102 19 132/83 99 Room Air 07/11/18 16:49 99 15 100 Room Air 21 07/11/18 16:49 21 07/11/18 16:44 97.4 07/11/18 16:35 97 16 96 Room Air 21 07/11/18 16:06 97.8 97 17 146/75 96 Room Air 07/11/18 15:27 97.4 07/11/18 14:55 98.1 90 18 149/85 97 Room Air 07/11/18 14:55 92 18 Room Air 07/11/18 14:26 92 18 99 Room Air 21 07/11/18 14:24 21 07/11/18 14:09 90 17 93 Room Air 21 07/11/18 13:55 98.1 96 20 139/81 95 Room Air Intake and Output 07/11/18 07/12/18 19:00 07:00 Intake Total 500 ml Balance 500 ml IV Total 500 ml # Voids 2 Laboratory Tests Test 07/11/18 14:30 07/11/18 14:36 07/11/18 14:45 07/12/18 08:27 Urine Color Yellow Urine Appearance Clear Urine pH 7 (4.5-8.0) Urine Specific [place] 1.005 (1.005-1.035) Urine Protein Negative (NEGATIVE) Urine Glucose (UA) Negative (NEGATIVE) Urine Ketones Negative (NEGATIVE) Urine Blood Negative (NEGATIVE) Urine Nitrite Negative (NEGATIVE) Urine Bilirubin Negative (NEGATIVE) Urine Urobilinogen 1 MG/DL (0.0-1.0) H Urine Leukocyte Esterase 1+ (NEGATIVE) H Urine RBC 0-2 /HPF (0 - 2) Urine WBC 2-4 /HPF (0 - 2) Urine Squamous Epithelial Cells Moderate /LPF (NONE/OCC) H Urine Amorphous Sediment Few /LPF (NONE) H Urine Bacteria Moderate /HPF (NONE) H Urine Yeast Few /HPF (NONE) H Lactic Acid Level 1.20 mmol/L (0.4-2.0) White Blood Count 10.0 K/UL (4.8-10.8) 10.8 K/UL (4.8-10.8) Red Blood Count 4.30 M/UL (4.20-5.40) 4.21 M/UL (4.20-5.40) Hemoglobin 11.1 G/DL (12.0-16.0) L 10.9 G/DL (12.0-16.0) L Hematocrit 34.8 % (37.0-47.0) L 34.1 % (37.0-47.0) L Mean Corpuscular Volume 81 FL (80-99) 81 FL (80-99) Mean Corpuscular Hemoglobin 25.7 PG (27.0-31.0) L 25.8 PG (27.0-31.0) L Mean Corpuscular Hemoglobin Concent 31.8 G/DL (32.0-36.0) L 31.9 G/DL (32.0-36.0) L Red Cell Distribution Width 20.9 % (11.6-14.8) H 20.8 % (11.6-14.8) H Platelet Count 580 K/UL (150-450) H 562 K/UL (150-450) H Mean Platelet Volume 5.6 FL (6.5-10.1) L 5.3 FL (6.5-10.1) L Neutrophils (%) (Auto) 61.7 % (45.0-75.0) % (45.0-75.0) Lymphocytes (%) (Auto) 23.7 % (20.0-45.0) % (20.0-45.0) Monocytes (%) (Auto) 9.2 % (1.0-10.0) % (1.0-10.0) Eosinophils (%) (Auto) 4.2 % (0.0-3.0) H % (0.0-3.0) Basophils (%) (Auto) 1.2 % (0.0-2.0) % (0.0-2.0) Prothrombin Time 9.5 SEC (9.30-11.50) Prothromb Time International Ratio 0.9 (0.9-1.1) Activated Partial Thromboplast Time 25 SEC (23-33) Sodium Level 141 MMOL/L (136-145) Pending Potassium Level 4.0 MMOL/L (3.5-5.1) Pending Chloride Level 105 MMOL/L (98-107) Pending Carbon Dioxide Level 28 MMOL/L (21-32) Pending Anion Gap 9 mmol/L (5-15) Blood Urea Nitrogen 10 mg/dL (7-18) Pending Creatinine 0.8 MG/DL (0.55-1.30) Pending Estimat Glomerular Filtration Rate > 60 mL/min (>60) Pending Glucose Level 115 MG/DL (74-106) H Pending Calcium Level 8.8 MG/DL (8.5-10.1) Pending Total Bilirubin 0.2 MG/DL (0.2-1.0) Pending Aspartate Amino Transf (AST/SGOT) 14 U/L (15-37) L Pending Alanine Aminotransferase (ALT/SGPT) 24 U/L (12-78) Pending Alkaline Phosphatase 101 U/L (46-116) Pending Total Creatine Kinase 70 U/L (26-308) Creatine Kinase MB 2.9 NG/ML (0.0-3.6) Creatine Kinase MB Relative Index 4.1 Troponin I 0.000 ng/mL (0.000-0.056) Pro-B-Type Natriuretic Peptide 31 pg/mL (0-125) Total Protein 7.6 G/DL (6.4-8.2) Pending Albumin 3.2 G/DL (3.4-5.0) L Pending Globulin 4.4 g/dL Pending Albumin/Globulin Ratio 0.7 (1.0-2.7) L Differential Total Cells Counted 100 Neutrophils % (Manual) 86 % (45-75) H Lymphocytes % (Manual) 11 % (20-45) L Monocytes % (Manual) 3 % (1-10) Eosinophils % (Manual) 0 % (0-3) Basophils % (Manual) 0 % (0-2) Band Neutrophils 0 % (0-8) Platelet Estimate Increased H Platelet Morphology Normal Hypochromasia 1+ Anisocytosis 2+ Microbiology Date/Time Source Procedure Growth Status 07/11/18 16:48 Nasal Nares Influenza Types A,B Antigen ([place]) - Final Complete 07/11/18 14:30 Urine,Clean Catch Urine Culture - Preliminary NO GROWTH Resulted Height (Feet): 5 Height (Inches): 4.00 Weight (Pounds): 169 Medications Current Medications Medications (Trade) Dose Ordered Sig/Ashlyn Route PRN Reason Start Time Stop Time Status Last Admin Dose Admin Acetaminophen (Tylenol) 650 mg Q6H PRN ORAL Mild Pain/Temp > 100.5 07/11/18 21:15 08/10/18 21:14 Acetaminophen/ Hydrocodone Bitart ([place] 5/325) 1 tab Q4H PRN ORAL MODERATE PAIN 4-6 07/11/18 21:15 07/18/18 21:14 Acetaminophen/ Hydrocodone Bitart ([place] 5/325) 2 tab Q4H PRN ORAL Severe Pain (Pain Scale 7-10) 07/11/18 21:15 07/18/18 21:14 07/12/18 08:33 Albuterol/ Ipratropium (Albuterol/ Ipratropium) 3 ml Q4H PRN HHN Shortness of Breath 07/11/18 21:15 07/16/18 21:14 07/12/18 01:40 Atorvastatin Calcium (Lipitor) 10 mg DAILY ORAL 07/12/18 09:00 08/11/18 08:59 07/12/18 08:25 Azithromycin 500 mg/Dextrose 275 ml @ 275 mls/hr Q24HRS IV 07/11/18 22:00 07/17/18 22:59 07/11/18 23:33 Clopidogrel Bisulfate (Plavix) 75 mg DAILY ORAL 07/12/18 09:00 08/11/18 08:59 07/12/18 08:25 Dextrose (Dextrose 50%) 25 ml Q30M PRN IV Hypoglycemia 07/12/18 02:30 08/11/18 02:29 Dextrose (Dextrose 50%) 50 ml Q30M PRN IV Hypoglycemia 07/12/18 02:30 08/11/18 02:29 Ferrous Sulfate (Feosol) 325 mg TWICE A DAY ORAL 07/12/18 09:00 08/11/18 08:59 07/12/18 08:25 Folic Acid (Folate) 1 mg DAILY ORAL 07/12/18 09:00 08/11/18 08:59 07/12/18 08:26 Guaifenesin/ Dextromethorphan (Robitussin DM Syrup) 10 ml Q6H PRN ORAL For Cough 07/12/18 02:30 08/11/18 02:29 07/12/18 03:31 Hydroxychloroquine Sulfate (Plaquenil) 200 mg BID ORAL 07/12/18 09:00 08/11/18 08:59 07/12/18 08:25 Insulin Aspart (NovoLOG) BEFORE MEALS AND HS SUBQ 07/12/18 06:30 08/11/18 06:29 07/12/18 05:51 Methotrexate (metHOTREXate) 12.5 mg QWEEK ORAL 07/18/18 09:00 07/23/18 08:59 Methylprednisolone Sodium Succinate (Solu-MEDROL) 125 mg Q6HR IVP 07/12/18 00:00 08/11/18 00:00 07/12/18 05:48 Oseltamivir Phosphate (Tamiflu) 75 mg Q12HR ORAL 07/12/18 09:00 07/17/18 08:59 07/12/18 08:27 Assessment/Plan Problem List: (1) Influenza A Assessment & Plan: influenza A positive tamiflu 75 mg bid started breathing tx monitor ICD Codes: J10.1 - Influenza due to other identified influenza virus with other respiratory manifestations SNOMED: 799384453 (2) COPD with exacerbation Assessment & Plan: pulse ox not requiring supplemental oxygen breathing tx solumedrol 125 q6hrs IV tele ICD Codes: J44.1 - Chronic obstructive pulmonary disease with (acute) exacerbation SNOMED: 689185552 (3) Hemoptysis Assessment & Plan: due to upper airway irritation from copd exacerbation ICD Codes: R04.2 - Hemoptysis SNOMED: 50116206 (4) CVA (cerebral vascular accident) Assessment & Plan: resume home meds asa, statin ICD Codes: I63.9 - Cerebral infarction, unspecified SNOMED: 798255262 Qualifiers: (5) HTN (hypertension) Assessment & Plan: resume home acei stable ICD Codes: I10 - Essential (primary) hypertension SNOMED: 99206138 Qualifiers: Qualified Codes: I10 - Essential (primary) hypertension (6) Microcytic anemia Assessment & Plan: stable no bleeding noted chronic ICD Codes: D50.9 - Iron deficiency anemia, unspecified SNOMED: 937603849 (7) Diabetes Assessment & Plan[facility] ICD Codes: E11.9 - Type 2 diabetes mellitus without complications SNOMED: 55087987 Qualifiers: Qualified Codes: E11.9 - Type 2 diabetes mellitus without complications; Z79.4 - shelter (current) use of insulin (8) Rheumatoid arteritis Assessment & Plan: resume home MTX ICD Codes: I00 - Rheumatic fever without heart involvement SNOMED: 177681653 Status: stable, progressing Assessment/Plan diet: ccd5 ppx: heparin required inpatient stay for treatment of influenza in a patient who is immunocompromised due to RA patient is expected to stay in the hospital for 2-3 days. I have spent over 62 minutes regarding patient care and counseling and over 42 minutes of face to face time with the patient Jie Solitario MD Jul 12, 2018 10:02
[2018-07-12] MEDS: Hydromorphone 0.5mg/0.5ml inj IVP PRN ×3 (11:41→21:32)
[2018-07-12 12:00] VITALS: BP 136/96
[2018-07-12 16:00] VITALS: BP 142/89
[2018-07-12] MEDS ORDERED: Zolpidem 5mg tab ORAL PRN (18:30)
[2018-07-12] MEDS ORDERED: Lactulose 20gm/30ml UDC ORAL PRN (18:30)
[2018-07-12 20:00] VITALS: BP 150/84
[2018-07-12] MEDS: Azithromycin 500 MG in D5W 275 ML IV SCH (21:31)
[2018-07-13] VITALS: BP 152/83
[2018-07-13] MEDS: Solu-MEDROL 125mg Inj IVP SCH ×3 (00:22→12:02)
[2018-07-13] MEDS: Hydromorphone 0.5mg/0.5ml inj IVP PRN ×3 (01:38→10:04)
[2018-07-13] MEDS: Guaifenesin/DM 10ml syrup ORAL PRN (03:37)
[2018-07-13 04:00] VITALS: BP 147/88
[2018-07-13] MEDS: Albuterol/Ipratropium 3ml neb HHN PRN (05:16)
[2018-07-13] MEDS: NovoLOG Insulin Flexpen SUBQ SCH ×2 (05:49→12:01)
[2018-07-13 08:00] VITALS: BP 141/82
[2018-07-13] MEDS ORDERED: TAMIFLU75 MG ORAL (08:35)
[2018-07-13] MEDS ORDERED: AZITHROMYCIN500 MG ORAL (08:35)
[2018-07-13] MEDS ORDERED: ALBUTEROL SULF8.5 GM INH (08:35)
[2018-07-13] MEDS ORDERED: NORCO 10-325 T1 EACH ORAL (08:35)
[2018-07-13] MEDS ORDERED: DUONEB 0.5-3(2.53 ML HHN (08:35)
[2018-07-13] MEDS ORDERED: NYSTATIN1 EAC4 MC (08:36)
[2018-07-13] MEDS ORDERED: PREDNISONE20 MG ORAL (08:44)
--- NOTE | 2018-07-13 08:48 | Discharge Summary ---
Discharge Summary Hospital Course Date of Admission Jul 11, 2018 at 17:22 Date of Discharge Admitting Diagnosis COPD EXACERBATION HPI Shae Chavis is a 63 year old female who was admitted on Jul 11, 2018 at 17:22 for Chronic Obstructive Pulmonary Disease Exacerbation h/o RA presents with complaints of sob, coughs, subjective fevers and chills. Patient states that her cough has been worsening for the past 3 days. Admits to chest pain from coughing, states her grandson was recently sick and around her. Patient lives with her daughter in an apartment. Patient is compliant with her medications at home. Currently states she is having difficulty breathing however improves with breathing tx. Influenza test was done in the ED, returned Positive. patient started on tamiflu, breathing tx, and abx and steroids patient improved faster than expected. Today she denies any complaints, not requiring any oxygen support. Patient states she is coughing but nonproductive currently, feeling better, denies an fevers/chills/chest pain or sob. no acute events overnight patient to go home with tamiflu, azithromycin, prednisone, norco, alb solution for her nebulizer machine dc home stable for discharge patient understands plan and understands to f/u with her pcp Physical Exam: General Appearance: WD/WN, mild distress Lines, tubes and drains: peripheral HEENT: normocephalic, atraumatic Neck: non-tender, normal alignment, supple, normal inspection Respiratory/Chest: chest wall non-tender, no respiratory distress, no accessory muscle use, other - mild exp wheezing apprecaited Cardiovascular/Chest: normal peripheral pulses, normal rate, regular rhythm Abdomen: normal bowel sounds, non tender, soft, no organomegaly, no mass Extremities: normal range of motion, non-tender, normal inspection, no calf tenderness Skin Exam: normal pigmentation, warm/dry, cyanotic Neurologic: pond scaler II-XII grossly normal, no motor/sensory deficits, alert, oriented x 3 Hospital Course I have spent over 41 minutes regarding patient care and counseling and over 16 minutes of face to face time with the patient Discharge Medications New Medications: Azithromycin (Azithromycin) 500 Mg Tablet 500 MG ORAL DAILY for 3 Days, #3 TAB Nystatin (Nystatin) 1 Each Powder.ea. 1 EACH MC BID for 10 Days, #1 EA Prednisone* (Prednisone*) 20 Mg Tablet 40 MG ORAL DAILY for 7 Days, #7 TAB Ipratropium/Albuterol Sulfate (DuoNeb 0.5-3(2.5)mg/3ml) 3 Ml Ampul.neb 3 ML HHN Q4H PRN for 30 Days, #1 EA Oseltamivir Phosphate (Tamiflu) 75 Mg Capsule 75 MG ORAL Q12HR for 3 Days, #6 CAP Continued Medications: Albuterol Sulfate* (Albuterol Sulfate Mdi*) 8.5 Gm Hfa.aer.ad 2 PUFF INH Q4H PRN for Shortness of Breath for 30 Days, #100 INH (This prescription has been renewed) Amitriptyline HCl (Elavil*) 75 Mg Tablet 75 MG ORAL BEDTIME, TAB (This prescription has been renewed) Atorvastatin Calcium* (Lipitor*) 10 Mg Tablet 10 MG ORAL DAILY, #30 TAB 0 Refills (This prescription has been renewed) Clopidogrel* (Clopidogrel*) 75 Mg Tablet 75 MG ORAL DAILY, TAB (This prescription has been renewed) Diazepam* (Valium*) 5 Mg Tablet 5 MG ORAL TID PRN for ANXIETY, #15 TAB 0 Refills Docusate Sodium* (Docusate Sodium*) 100 Mg Capsule 200 MG ORAL TWICE A DAY, CAP (This prescription has been renewed) Ferrous Sulfate* (Ferrous Sulfate*) 325 Mg Tablet 325 MG ORAL TWICE A DAY, #60 TAB 0 Refills (This prescription has been renewed) Folic Acid* (Folic Acid*) 1 Mg Tablet 1 MG ORAL 6xwk for methotrexate MONIE, TAB (This prescription has been renewed) Hydrocodone Bit/Acetaminophen 10-325* ([place] 10-325*) 1 Each Tablet 2 TAB ORAL Q4H PRN for For Pain for 7 Days, #20 TAB (This prescription has been renewed) PRN PAIN Hydroxychloroquine Sulfate (Hydroxychloroquine Sulfate) 200 Mg Tablet 200 MG PO BID, TAB (This prescription has been renewed) Metformin Hcl* (Metformin Hcl*) 1,000 Mg Tablet 1000 MG ORAL BID, TAB (This prescription has been renewed) Methotrexate Sodium* (Methotrexate*) 2.5 Mg Tablet 12.5 MG PO qSaturday, TAB (This prescription has been renewed) Discharge Condition Upon Discharge: improving, stable Discharge Disposition Patient was discharged to Discharge Diagnoses: (1) COPD with exacerbation (2) Influenza A (3) Hemoptysis (4) Rheumatoid arteritis (5) Diabetes (6) HTN (hypertension) Jie Solitario MD Jul 13, 2018 08:48
[2018-07-13] MEDS: Oseltamivir 75mg cap ORAL SCH (08:57)
[2018-07-13 12:00] VITALS: BP 140/86
[2018-07-13] MEDS ORDERED: Azithromycin 250mg tab ORAL SCH (22:00)
--- NOTE | 2018-07-14 15:22 | General Progress Note ---
Subjective Allergies: Coded Allergies: No Known Allergies (Unverified , 05/15/18) Subjective micro lab called stating patient's blood cx grew two out of two gram positive cocci in clusters I called Ms. Chavis at her number : [phone] discussed results with patient patient states she will come to the ED at her earliest convenience for abx and repeat bcx Jie Solitario MD Jul 14, 2018 15:22
== END 2018-07-13 12:50 | disposition home or self-care (01) | DRG 140 ==
LOC: EMR 14:19 → 2E 17:22 → EDBEDREQ 17:55
DX: J44.1 Chronic obstructive pulmonary disease with (acute) exacerbation (principal); R04.2 Hemoptysis; J10.1 Influenza due to other identified influenza virus with other respiratory manifestations; M06.9 Rheumatoid arthritis, unspecified; E11.9 Type 2 diabetes mellitus without complications; I10 Essential (primary) hypertension; F17.200 Nicotine dependence, unspecified, uncomplicated
CPT/HCPCS: 36415; 71045; 71260; 80053; 81003; 82550; 82553; 83605; 83880; 84484; 85007; 85025; 85610; 85730; 86710; 86850; 86870; 86900; 86901; 86904; 87040; 87086; 94640; 94664; 96374; 96375; 99285; J1815; J7620

== ENCOUNTER 2018-07-15 14:29 | Inpatient (IN) | payer MEDICAID ==
[~2018-07-15] VITALS: Ht 162.6 cm; Wt 63.5 kg
[~2018-07-15 14:29] MED LIST changes: +ALBUTEROL SULF8.5 GM INH; +AMITRIPTYLINE75 MG ORAL; +AZITHROMYCIN500 MG ORAL; +DOCUSATE SODIU100 MG ORAL; +DUONEB 0.5-3(2.53 ML HHN; +NORCO 10-325 T1 EACH ORAL; +NYSTATIN1 EAC4 MC; +TAMIFLU75 MG ORAL
[2018-07-15] MEDS ORDERED: Hydromorphone 0.5mg/0.5ml inj IVP ONE (15:45)
[2018-07-15] MEDS ORDERED: Vancomycin 1 GM in NS 275 ML IV ONE (15:45)
--- NOTE | 2018-07-15 16:02 | Emergency Room Report ---
History of Present Illness General Chief Complaint: Abnormal Labs Source: Patient Present Illness HPI Patient was recently admitted for rheumatoid arthritis exacerbation. While she was here apparently she had positive blood cultures. Patient states that since discharge she's had diffuse bodyaches fevers and chills and worsening over rheumatoid arthritis. In addition patient receive a phone call from the physician stating that patient had positive blood cultures. Therefore she came in for further evaluation. She denies any chest pain or shortness of breath. No other complaints are noted. Symptoms noted to be moderate to severe.No other modifying factors. No other associated signs and symptoms. No other complaints were noted. Allergies: Coded Allergies: No Known Allergies (Unverified , 05/15/18) Patient History Past Medical History: DM, HTN, CAD, asthma, COPD, CVA/TIA - Left-sided, other - Neuropathy, rheumatoid arthritis Past Surgical History: none Pertinent Family History: none Social History: Denies: smoking, alcohol use, drug use Reviewed Nursing Documentation: PMH: Agreed; PSxH: Agreed Nursing Documentation-PMH Past Medical History: No History, Except For Hx Cardiac Problems: Yes Hx Hypertension: Yes Hx Asthma: Yes Hx COPD: Yes Hx Diabetes: Yes Hx Cancer: No Hx Gastrointestinal Problems: No Hx Dialysis: No Hx Neurological Problems: Yes - Neuropathy Hx Cerebrovascular Accident: Yes - Left side Hx Weakness: Yes Review of Systems All Other Systems: negative except mentioned in HPI Physical Exam Vital Signs Date Time Temp Pulse Resp B/P (MAP) Pulse Ox O2 Delivery O2 Flow Rate FiO2 07/15/18 14:45 81.0 81 18 150/80 96 Room Air Sp02 EP Interpretation: reviewed, normal General Appearance: alert, mild distress Head: atraumatic Eyes: bilateral eye normal inspection ENT: normal ENT inspection, hearing grossly normal, normal voice Neck: normal inspection, full range of motion, supple, no bony tend Respiratory: normal inspection, lungs clear, normal breath sounds, no respiratory distress, no retraction, no wheezing Cardiovascular #1: regular rate, rhythm, no edema Gastrointestinal: normal inspection, normal bowel sounds, non tender, soft, no guarding, no hernia Genitourinary: no CVA tenderness Musculoskeletal: normal inspection, back normal, normal range of motion Neurologic: normal inspection, alert, responsive, speech normal Psychiatric: normal inspection, judgement/insight normal, mood/affect normal Skin: normal inspection, normal color, no rash Medical Decision Making Diagnostic Impression: Primary Impression: Rheumatoid arteritis Additional Impressions: Leukocytosis Positive blood culture ER Course Patient presents emergency department today with body aches positive blood cultures. Differential diagnoses include contamination, severe infection, rheumatoid arthritis exacerbation just name a few.Given the severity of the patient's presentation I felt this is a highly complex patient. This patient required extensive workup. Patient's laboratory workup shows elevated white count. Given the patient has a positive blood culture felt that it was prudent to admit the patient. Blood culture was positive for gram-positive cocci. Therefore felt that was reasonable start patient on vancomycin. Case was discussed in detail with admitting physician Dr. cook. Patient will be admitted to [facility] further treatment. Labs Test 07/15/18 15:30 07/15/18 15:45 White Blood Count 14.9 K/UL (4.8-10.8) Red Blood Count 4.33 M/UL (4.20-5.40) Hemoglobin 11.4 G/DL (12.0-16.0) Hematocrit 34.4 % (37.0-47.0) Mean Corpuscular Volume 79 FL (80-99) Mean Corpuscular Hemoglobin 26.3 PG (27.0-31.0) Mean Corpuscular Hemoglobin Concent 33.1 G/DL (32.0-36.0) Red Cell Distribution Width 20.3 % (11.6-14.8) Platelet Count 619 K/UL (150-450) Mean Platelet Volume 5.5 FL (6.5-10.1) Neutrophils (%) (Auto) 66.1 % (45.0-75.0) Lymphocytes (%) (Auto) 25.9 % (20.0-45.0) Monocytes (%) (Auto) 6.9 % (1.0-10.0) Eosinophils (%) (Auto) 0.2 % (0.0-3.0) Basophils (%) (Auto) 1.0 % (0.0-2.0) Sodium Level 142 MMOL/L (136-145) Potassium Level 4.1 MMOL/L (3.5-5.1) Chloride Level 105 MMOL/L (98-107) Carbon Dioxide Level 29 MMOL/L (21-32) Anion Gap 8 mmol/L (5-15) Blood Urea Nitrogen 22 mg/dL (7-18) Creatinine 1.0 MG/DL (0.55-1.30) Estimat Glomerular Filtration Rate 56.4 mL/min (>60) Glucose Level 86 MG/DL (74-106) Lactic Acid Level 1.70 mmol/L (0.4-2.0) Calcium Level 8.4 MG/DL (8.5-10.1) Total Bilirubin 0.1 MG/DL (0.2-1.0) Aspartate Amino Transf (AST/SGOT) 17 U/L (15-37) Alanine Aminotransferase (ALT/SGPT) 36 U/L (12-78) Alkaline Phosphatase 89 U/L (46-116) Total Protein 7.4 G/DL (6.4-8.2) Albumin 3.4 G/DL (3.4-5.0) Globulin 4.0 g/dL Albumin/Globulin Ratio 0.9 (1.0-2.7) Urine Color Yellow Urine Appearance Clear Urine pH 6.5 (4.5-8.0) Urine Specific [place] 1.010 (1.005-1.035) Urine Protein 1+ (NEGATIVE) Urine Glucose (UA) Negative (NEGATIVE) Urine Ketones Negative (NEGATIVE) Urine Blood Negative (NEGATIVE) Urine Nitrite Negative (NEGATIVE) Urine Bilirubin Negative (NEGATIVE) Urine Urobilinogen Normal MG/DL (0.0-1.0) Urine Leukocyte Esterase 2+ (NEGATIVE) Urine RBC 0-2 /HPF (0 - 2) Urine WBC 2-4 /HPF (0 - 2) Urine Squamous Epithelial Cells Moderate /LPF (NONE/OCC) Urine Bacteria Few /HPF (NONE) Chest X-Ray Diagnostic Results Chest X-Ray Diagnostic Results : Chest X-Ray Ordered: Yes # of Views/Limited/Complete: 1 View Indication: Chest Pain EP Interpretation: No Interpretation: no acute cardiopulmonary disease Impression: No acute disease Last Vital Signs Date Time Temp Pulse Resp B/P (MAP) Pulse Ox O2 Delivery O2 Flow Rate FiO2 07/15/18 14:45 81.0 81 18 150/80 96 Room Air Status: improved Disposition: ADMITTED INPATIENT Condition: Serious Moreno Hardy MD Jul 15, 2018 16:02
[2018-07-15 16:07] VITALS: BP 145/81
[2018-07-15 16:08] LABS: APPEARANCE,URINE CLEAR; BILIRUBIN, URINE NEGATIVE (NEGATIVE); GLUCOSE, URINE (UA) NEGATIVE (NEGATIVE); KETONES,URINE NEGATIVE (NEGATIVE); LEUKOCYTE ESTERASE ,URINE 2+ (NEGATIVE); NITRITE,URINE NEGATIVE (NEGATIVE); PH,URINE 6.5 (4.5-8.0); PROTEIN,URINE 1+ (NEGATIVE); UROBILINOGEN,URINE NORMAL MG/DL (0.0-1.0)
[2018-07-15 16:08] LABS: EOSINOPHILS % (AUTO) 0.2 % (0.0-3.0); HEMATOCRIT 34.4 % (37.0-47.0); HEMOGLOBIN 11.4 G/DL (12.0-16.0); LYMPHOCYTES % (AUTO) 25.9 % (20.0-45.0); MEAN CORPUSCULAR VOLUME 79 FL (80-99); MONOCYTES % (AUTO) 6.9 % (1.0-10.0); NEUTROPHILS % (AUTO) 66.1 % (45.0-75.0); PLATELET COUNT 619 K/UL (150-450); RED BLOOD COUNT 4.33 M/UL (4.20-5.40); RED CELL DISTRIBUTION WIDTH 20.3 % (11.6-14.8); WHITE BLOOD COUNT 14.9 K/UL (4.8-10.8)
[2018-07-15 16:09] LABS: COLOR,URINE YELLOW
[2018-07-15 16:12] LABS: ANION GAP 8 mmol/L (5-15); BLOOD UREA NITROGEN 22 mg/dL (7-18); CALCIUM 8.4 MG/DL (8.5-10.1); CARBON DIOXIDE 29 MMOL/L (21-32); CHLORIDE 105 MMOL/L (98-107); POTASSIUM 4.1 MMOL/L (3.5-5.1); SODIUM 142 MMOL/L (136-145)
[2018-07-15 16:17] LABS: ALANINE AMINOTRANSFERASE 36 U/L (12-78); ALBUMIN 3.4 G/DL (3.4-5.0); ALBUMIN/GLOBULIN RATIO 0.9 (1.0-2.7); ALKALINE PHOSPHATASE 89 U/L (46-116); ASPARTATE AMINO TRANSFERASE 17 U/L (15-37); BILIRUBIN,TOTAL 0.1 MG/DL (0.2-1.0)
--- NOTE | 2018-07-15 16:27 | Diagnostic Imaging Report ---
Indication: Cough Technique: One view of the chest Comparison: 07/11/2018 Findings: There is some atelectasis at the left lung base. The lungs and pleural spaces are otherwise clear. The heart size is normal. The aorta is tortuous and calcified. No significant interim change Impression: Left basilar atelectasis. No acute process otherwise
[2018-07-15 17:28] VITALS: BP 146/74
[2018-07-15] MEDS ORDERED: HYDROmorphone 1mg/ml Carpuject IVP ONE (18:00)
[2018-07-15 18:25] VITALS: BP 140/70
[2018-07-15 20:00] VITALS: BP 146/75
--- NOTE | 2018-07-15 20:15 | History and Physical ---
History of Present Illness General Date patient seen: Jul 15, 2018 Time patient seen: 20:01 Reason for Hospitalization: Abnormal Labs Present Illness HPI Ms Chavis is a 63 yo female with h/o COPD, RA, HTN, DM who was recently diagnosed with flu/cap and copd exacerbation. After discharge patient was noted to have gram positive cocci on two out of two blood cultures. I had called patient and notified her and told her to come back to the ED so that we may start her back up on IV abx and obtain repeat bcx. Patient also noted that she has not been taking the antibiotics she was discharged with. Currently she states she is feeling fatigue, fevers and chills. Denies any chest pain or sob. code status reviewed, FULL CODE social hx reviewed, smokes half ppd, denies alcohol use fam hx reviewed, denies any sig past fam hx. Allergies: Coded Allergies: No Known Allergies (Unverified , 05/15/18) Medication History Scheduled Amitriptyline HCl (Elavil*), 75 MG ORAL BEDTIME, (Reported) Atorvastatin Calcium* (Lipitor*), 10 MG ORAL DAILY, (Reported) Azithromycin (Azithromycin), 500 MG ORAL DAILY Clopidogrel* (Clopidogrel*), 75 MG ORAL DAILY, (Reported) Docusate Sodium* (Docusate Sodium*), 200 MG ORAL TWICE A DAY, (Reported) Ferrous Sulfate* (Ferrous Sulfate*), 325 MG ORAL TWICE A DAY, (Reported) Folic Acid* (Folic Acid*), 1 MG ORAL 6xwk, (Reported) Hydroxychloroquine Sulfate (Hydroxychloroquine Sulfate), 200 MG PO BID, ( Reported) Metformin Hcl* (Metformin Hcl*), 1,000 MG ORAL BID, (Reported) Methotrexate Sodium* (Methotrexate*), 12.5 MG PO qSaturday, (Reported) Nystatin (Nystatin), 1 EACH MC BID Oseltamivir Phosphate (Tamiflu), 75 MG ORAL Q12HR Prednisone* (Prednisone*), 40 MG ORAL DAILY Scheduled PRN Albuterol Sulfate* (Albuterol Sulfate Mdi*), 2 PUFF INH Q4H PRN for Shortness of Breath Diazepam* (Valium*), 5 MG ORAL TID PRN for ANXIETY Hydrocodone Bit/Acetaminophen 10-325* (Hope 10-325*), 2 TAB ORAL Q4H PRN for For Pain Ipratropium/Albuterol Sulfate (DuoNeb 0.5-3(2.5)mg/3ml), 3 ML HHN Q4H PRN Discontinued Medications Fluticasone Propionate* (Fluticasone Propionate*), 1 SPRAY NASAL DAILY, ( Reported) Discontinued Reason: Pt stopped taking med Ibuprofen (Ibuprofen*), 200 MG ORAL FOUR TIMES A DAY Discontinued Reason: Pt stopped taking med Ipratropium/Albuterol Sulfate (Combivent Respimat Inhal [place]), 4 GM IH, ( Reported) Discontinued Reason: Pt stopped taking med Prednisone* (Prednisone*), 20 MG ORAL DAILY Discontinued Reason: Therapy completed Patient History History Provided By: Patient Healthcare decision maker Resuscitation status Advanced Directive on File Family History Family History: Father with DM Review of Systems ROS Narrative 14 point ros reviewed and negative except for the above Physical Exam General Appearance: WD/WN, no apparent distress Lines, tubes and drains: peripheral HEENT: normocephalic, atraumatic Neck: non-tender, normal alignment, supple Respiratory/Chest: chest wall non-tender, lungs clear, normal breath sounds, no respiratory distress, no accessory muscle use Cardiovascular/Chest: normal peripheral pulses, normal rate, regular rhythm Abdomen: normal bowel sounds, non tender, soft Extremities: normal range of motion, non-tender, normal inspection, no calf tenderness Skin Exam: normal pigmentation, warm/dry 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, no motor/sensory deficits, alert, oriented x 3, responsive, normal mood/affect Last 24 Hour Vital Signs Date Time Temp Pulse Resp B/P (MAP) Pulse Ox O2 Delivery O2 Flow Rate FiO2 07/15/18 18:25 97.7 81 18 140/70 (93) 98 07/15/18 18:12 98.1 80 14 146/74 100 Room Air 07/15/18 17:28 98.1 80 14 146/74 100 Room Air 07/15/18 16:19 98.1 07/15/18 16:07 98.1 81 21 145/81 100 Room Air 07/15/18 14:45 81.0 81 18 150/80 96 Room Air Laboratory Tests Test 07/15/18 15:30 07/15/18 15:45 White Blood Count 14.9 K/UL (4.8-10.8) H Red Blood Count 4.33 M/UL (4.20-5.40) Hemoglobin 11.4 G/DL (12.0-16.0) L Hematocrit 34.4 % (37.0-47.0) L Mean Corpuscular Volume 79 FL (80-99) L Mean Corpuscular Hemoglobin 26.3 PG (27.0-31.0) L Mean Corpuscular Hemoglobin Concent 33.1 G/DL (32.0-36.0) Red Cell Distribution Width 20.3 % (11.6-14.8) H Platelet Count 619 K/UL (150-450) H Mean Platelet Volume 5.5 FL (6.5-10.1) L Neutrophils (%) (Auto) 66.1 % (45.0-75.0) Lymphocytes (%) (Auto) 25.9 % (20.0-45.0) Monocytes (%) (Auto) 6.9 % (1.0-10.0) Eosinophils (%) (Auto) 0.2 % (0.0-3.0) Basophils (%) (Auto) 1.0 % (0.0-2.0) Sodium Level 142 MMOL/L (136-145) Potassium Level 4.1 MMOL/L (3.5-5.1) Chloride Level 105 MMOL/L (98-107) Carbon Dioxide Level 29 MMOL/L (21-32) Anion Gap 8 mmol/L (5-15) Blood Urea Nitrogen 22 mg/dL (7-18) H Creatinine 1.0 MG/DL (0.55-1.30) Estimat Glomerular Filtration Rate 56.4 mL/min (>60) Glucose Level 86 MG/DL (74-106) Lactic Acid Level 1.70 mmol/L (0.4-2.0) Calcium Level 8.4 MG/DL (8.5-10.1) L Total Bilirubin 0.1 MG/DL (0.2-1.0) L Aspartate Amino Transf (AST/SGOT) 17 U/L (15-37) Alanine Aminotransferase (ALT/SGPT) 36 U/L (12-78) Alkaline Phosphatase 89 U/L (46-116) Total Protein 7.4 G/DL (6.4-8.2) Albumin 3.4 G/DL (3.4-5.0) Globulin 4.0 g/dL Albumin/Globulin Ratio 0.9 (1.0-2.7) L Urine Color Yellow Urine Appearance Clear Urine pH 6.5 (4.5-8.0) Urine Specific [place] 1.010 (1.005-1.035) Urine Protein 1+ (NEGATIVE) H Urine Glucose (UA) Negative (NEGATIVE) Urine Ketones Negative (NEGATIVE) Urine Blood Negative (NEGATIVE) Urine Nitrite Negative (NEGATIVE) Urine Bilirubin Negative (NEGATIVE) Urine Urobilinogen Normal MG/DL (0.0-1.0) Urine Leukocyte Esterase 2+ (NEGATIVE) H Urine RBC 0-2 /HPF (0 - 2) Urine WBC 2-4 /HPF (0 - 2) Urine Squamous Epithelial Cells Moderate /LPF (NONE/OCC) H Urine Bacteria Few /HPF (NONE) Height (Feet): 5 Height (Inches): 4.00 Weight (Pounds): 140 Assessment/Plan Problem List: (1) Gram positive sepsis ICD Codes: A41.89 - Other specified sepsis SNOMED: 647013943 (2) Gram-positive bacteremia ICD Codes: R78.81 - Bacteremia SNOMED: 357063938982 (3) Positive blood culture ICD Codes: R78.81 - Bacteremia SNOMED: 643440195 (4) HTN (hypertension) ICD Codes: I10 - Essential (primary) hypertension SNOMED: 50256586 Qualifiers: Qualified Codes: I10 - Essential (primary) hypertension (5) Diabetes ICD Codes: E11.9 - Type 2 diabetes mellitus without complications SNOMED: 39282435 Qualifiers: Qualified Codes: E11.9 - Type 2 diabetes mellitus without complications (6) Microcytic anemia ICD Codes: D50.9 - Iron deficiency anemia, unspecified SNOMED: 688143829 (7) CVA (cerebral vascular accident) ICD Codes: I63.9 - Cerebral infarction, unspecified SNOMED: 035132648 Qualifiers: Qualified Codes: I63.9 - Cerebral infarction, unspecified (8) Rheumatoid arteritis ICD Codes: I00 - Rheumatic fever without heart involvement SNOMED: 195039332 (9) Smoker ICD Codes: F17.200 - Nicotine dependence, unspecified, uncomplicated SNOMED: 11802189 (10) Noncompliance ICD Codes: Z91.19 - Patient's noncompliance with other medical treatment and regimen SNOMED: 3501361 Status: stable Assessment/Plan #Gram Positive Sepsis #Gram Positive Bacteremia - WBC 14, RR 21, gram pos cocci on bcx -gram positive cocci in 2 out of 2 bcx, returned positive once patient was dc'd home however patient also did not take the antibiotics she was prescribed -repeat blood cx x 2 -vanco and IVF #Noncompliance -educated on compliance for over 16 mins -patient did not take antibiotics that she was discharged with as she was instructed to #HTN - stable - cont home meds #DM II - iss - accuchecks #Microcytic Anemia - stable - monitor - no acute blood loss #CVA - old - stable - resume home asa, statin #RA - stable - resume home meds ppx: heparin, scd diet: Diabetic I have spent over 71 minutes regarding patient care and counseling and over 36 minutes of face to face time with the patient. Jie Solitario MD Jul 15, 2018 20:15
[2018-07-15] MEDS ORDERED: Albuterol/Ipratropium 3ml neb HHN PRN (20:30)
[2018-07-15] MEDS ORDERED: Albuterol 90mcg Inhaler 8gm INH PRN (20:30)
[2018-07-15] MEDS ORDERED: HYDROmorphone 1mg/ml Carpuject IVP PRN (20:45)
[2018-07-15] MEDS: NovoLOG Insulin Flexpen SUBQ SCH (21:00)
[2018-07-15] MEDS ORDERED: Norco 5mg/325mg tab ORAL PRN (22:30)
[2018-07-15] MEDS: HYDROmorphone 1mg/ml Carpuject IVP PRN (23:10)
[2018-07-16] VITALS: BP 144/69
[2018-07-16] MEDS: HYDROmorphone 1mg/ml Carpuject IVP PRN ×5 (03:23→21:07)
[2018-07-16 04:00] VITALS: BP 139/66
[2018-07-16] MEDS: Vancomycin 750mg/NS 250ml IVPB SCH ×2 (04:24→15:33)
[2018-07-16] MEDS: NovoLOG Insulin Flexpen SUBQ SCH ×4 (06:30→21:10)
[2018-07-16 06:32] LABS: ANION GAP 8 mmol/L (5-15); BASOPHILS % (AUTO) 1.2 % (0.0-2.0); BLOOD UREA NITROGEN 17 mg/dL (7-18); CALCIUM 8.1 MG/DL (8.5-10.1); CARBON DIOXIDE 29 MMOL/L (21-32); CHLORIDE 108 MMOL/L (98-107); CREATININE 0.9 MG/DL (0.55-1.30); EOSINOPHILS % (AUTO) 1.2 % (0.0-3.0); HEMATOCRIT 35.7 % (37.0-47.0); HEMOGLOBIN 11.4 G/DL (12.0-16.0); LYMPHOCYTES % (AUTO) 41.9 % (20.0-45.0); MEAN CORPUSCULAR VOLUME 82 FL (80-99); MONOCYTES % (AUTO) 6.1 % (1.0-10.0); NEUTROPHILS % (AUTO) 49.6 % (45.0-75.0); PLATELET COUNT 578 K/UL (150-450); POTASSIUM 3.9 MMOL/L (3.5-5.1); RED BLOOD COUNT 4.37 M/UL (4.20-5.40); RED CELL DISTRIBUTION WIDTH 20.6 % (11.6-14.8); SODIUM 145 MMOL/L (136-145); WHITE BLOOD COUNT 13.5 K/UL (4.8-10.8)
--- NOTE | 2018-07-16 07:51 | General Progress Note ---
Assessment/Plan Problem List: (1) Gram positive sepsis ICD Codes: A41.89 - Other specified sepsis SNOMED: 867249021 (2) Gram-positive bacteremia ICD Codes: R78.81 - Bacteremia SNOMED: 858217486788 (3) Positive blood culture ICD Codes: R78.81 - Bacteremia SNOMED: 497743282 (4) HTN (hypertension) ICD Codes: I10 - Essential (primary) hypertension SNOMED: 36413610 Qualifiers: Qualified Codes: I10 - Essential (primary) hypertension (5) Diabetes ICD Codes: E11.9 - Type 2 diabetes mellitus without complications SNOMED: 58725818 Qualifiers: Qualified Codes: E11.9 - Type 2 diabetes mellitus without complications (6) Microcytic anemia ICD Codes: D50.9 - Iron deficiency anemia, unspecified SNOMED: 865120309 (7) CVA (cerebral vascular accident) ICD Codes: I63.9 - Cerebral infarction, unspecified SNOMED: 952879977 Qualifiers: Qualified Codes: I63.9 - Cerebral infarction, unspecified (8) Rheumatoid arteritis ICD Codes: I00 - Rheumatic fever without heart involvement SNOMED: 945754622 (9) Smoker ICD Codes: F17.200 - Nicotine dependence, unspecified, uncomplicated SNOMED: 60513966 (10) Noncompliance ICD Codes: Z91.19 - Patient's noncompliance with other medical treatment and regimen SNOMED: 3931897 (11) COPD (chronic obstructive pulmonary disease) ICD Codes: J44.9 - Chronic obstructive pulmonary disease, unspecified SNOMED: 81757496 Status: stable Assessment/Plan #Gram Positive Sepsis #Gram Positive Bacteremia - WBC 13.5 , downtrending - improving slowly - initial bcx two out of two gram pos cocci, pending final cx.. - repeat bcx sent x 2.. - ID consulted.. - cont vanco - IVF #Noncompliance -educated on compliance for over 16 mins -patient did not take antibiotics that she was discharged with as she was instructed to #HTN - stable - cont home meds #DM II - iss - accuchecks #Microcytic Anemia - stable - monitor - no acute blood loss #CVA - old - stable - resume home asa, statin #RA - stable - resume home meds #Smoker - Educated on smoking cessation for over 15 minutes - patient states she understands and is trying to quit - verbalizes that she will make more of an effort #COPD - stable - breathing well - breathing tx prn ppx: heparin, scd diet: Diabetic I have spent over 46 minutes regarding patient care and counseling and over 35 minutes of face to face time with the patient. Subjective Date patient seen: Jul 16, 2018 Time patient seen: 07:46 Allergies: Coded Allergies: No Known Allergies (Unverified , 05/15/18) Subjective f/u sepsis, gram positive cocci bacteremia, weakness, RA states she feels very weak patient understands that she should have taken the medications she was discharged with patient also understands that we are pending repeat bcx and pending final cx results of previous bcx denies any headaches , no cp or sob denies fevers or chills today no n/v no diarrhea/constipation no dysuria/hematuria ID consulted ROS: 12 point ros reviewed and negative except for the above Objective Last 24 Hour Vital Signs Date Time Temp Pulse Resp B/P (MAP) Pulse Ox O2 Delivery O2 Flow Rate FiO2 07/16/18 04:00 98.1 73 19 139/66 (90) 98 07/16/18 00:00 97.9 79 19 144/69 (94) 97 07/15/18 23:29 Room Air 07/15/18 21:00 Room Air 07/15/18 20:00 97.5 79 19 146/75 (98) 98 07/15/18 18:25 97.7 81 18 140/70 (93) 98 07/15/18 18:12 98.1 80 14 146/74 100 Room Air 07/15/18 17:28 98.1 80 14 146/74 100 Room Air 07/15/18 16:19 98.1 07/15/18 16:07 98.1 81 21 145/81 100 Room Air 07/15/18 14:45 81.0 81 18 150/80 96 Room Air Intake and Output 07/15/18 07/16/18 18:59 06:59 Intake Total 275 ml 1208.334 ml Balance 275 ml 1208.334 ml Intake Oral 250 ml IV Total 275 ml 958.334 ml # Voids 1 3 Laboratory Tests 07/15/18 15:30: White Blood Count 14.9H, Red Blood Count 4.33, Hemoglobin 11.4L, Hematocrit 34.4L, Mean Corpuscular Volume 79L, Mean Corpuscular Hemoglobin 26.3L, Mean Corpuscular Hemoglobin Concent 33.1, Red Cell Distribution Width 20.3H, Platelet Count 619H, Mean Platelet Volume 5.5L, Neutrophils (%) (Auto) 66.1, Lymphocytes (%) (Auto) 25.9, Monocytes (%) (Auto) 6.9, Eosinophils (%) (Auto) 0.2, Basophils (%) (Auto) 1.0, Sodium Level 142, Potassium Level 4.1, Chloride Level 105, Carbon Dioxide Level 29, Anion Gap 8, Blood Urea Nitrogen 22H, Creatinine 1.0, Estimat Glomerular Filtration Rate 56.4, Glucose Level 86, Lactic Acid Level 1.70, Calcium Level 8.4L, Total Bilirubin 0.1L, Aspartate Amino Transf (AST/SGOT) 17, Alanine Aminotransferase (ALT/SGPT) 36, Alkaline Phosphatase 89, Total Protein 7.4, Albumin 3.4, Globulin 4.0, Albumin/Globulin Ratio 0.9L 07/15/18 15:45: Urine Color Yellow, Urine Appearance Clear, Urine pH 6.5, Urine Specific [place] 1.010, Urine Protein 1+H, Urine Glucose (UA) Negative, Urine Ketones Negative, Urine Blood Negative, Urine Nitrite Negative, Urine Bilirubin Negative , Urine Urobilinogen Normal, Urine Leukocyte Esterase 2+H, Urine RBC 0-2, Urine WBC 2-4, Urine Squamous Epithelial Cells ModerateH, Urine Bacteria Few 07/16/18 05:30: White Blood Count 13.5H, Red Blood Count 4.37, Hemoglobin 11.4L, Hematocrit 35.7L, Mean Corpuscular Volume 82, Mean Corpuscular Hemoglobin 26.0L, Mean Corpuscular Hemoglobin Concent 31.8L, Red Cell Distribution Width 20.6H, Platelet Count 578H, Mean Platelet Volume 5.4L, Neutrophils (%) (Auto) 49.6, Lymphocytes (%) (Auto) 41.9, Monocytes (%) (Auto) 6.1, Eosinophils (%) (Auto) 1.2, Basophils (%) (Auto) 1.2, Sodium Level 145, Potassium Level 3.9, Chloride Level 108H, Carbon Dioxide Level 29, Anion Gap 8, Blood Urea Nitrogen 17, Creatinine 0.9, Estimat Glomerular Filtration Rate > 60, Glucose Level 88, Calcium Level 8.1L Height (Feet): 5 Height (Inches): 4.00 Weight (Pounds): 140 General Appearance: WD/WN, no apparent distress, alert EENT: PERRL/EOMI, normal ENT inspection, TMs normal, pharynx normal Neck: non-tender, normal alignment, supple Cardiovascular: normal peripheral pulses, normal rate, regular rhythm Respiratory/Chest: chest wall non-tender, lungs clear, normal breath sounds, no respiratory distress, no accessory muscle use Abdomen: normal bowel sounds, non tender, soft, no organomegaly, no mass Extremities: normal range of motion, non-tender, normal inspection, no calf tenderness 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
[2018-07-16 08:00] VITALS: BP 140/69
[2018-07-16] MEDS: Docusate 100mg cap ORAL SCH ×2 (09:30→17:44)
[2018-07-16 12:00] VITALS: BP 157/97
--- NOTE | 2018-07-16 14:39 | Infectious Diseases Prog Note ---
Assessment/Plan Assessment/Plan Full consult dictated: A) 1) gram + bacteremia - + staph capitis - multiple bottles, both sets 2) ? source 3) pmh noted 4) allergies - nkda P) 1) vancomycin 2) repeat blood cultures 3) check echo 4) thank you Subjective Allergies: Coded Allergies: No Known Allergies (Unverified , 05/15/18) Objective Vital Signs Last 24 Hour Vital Signs Date Time Temp Pulse Resp B/P (MAP) Pulse Ox O2 Delivery O2 Flow Rate FiO2 07/16/18 12:00 97.9 73 18 157/97 (117) 96 07/16/18 09:00 Room Air 07/16/18 08:00 97.6 79 12 140/69 (92) 95 07/16/18 04:00 98.1 73 19 139/66 (90) 98 07/16/18 00:00 97.9 79 19 144/69 (94) 97 07/15/18 23:29 Room Air 07/15/18 21:00 Room Air 07/15/18 20:00 97.5 79 19 146/75 (98) 98 07/15/18 18:25 97.7 81 18 140/70 (93) 98 07/15/18 18:12 98.1 80 14 146/74 100 Room Air 07/15/18 17:28 98.1 80 14 146/74 100 Room Air 07/15/18 16:19 98.1 07/15/18 16:07 98.1 81 21 145/81 100 Room Air 07/15/18 14:45 81.0 81 18 150/80 96 Room Air Height (Feet): 5 Height (Inches): 4.00 Weight (Pounds): 140 Laboratory Tests Test 07/15/18 15:30 07/15/18 15:45 07/16/18 05:30 White Blood Count 14.9 K/UL (4.8-10.8) H 13.5 K/UL (4.8-10.8) H Red Blood Count 4.33 M/UL (4.20-5.40) 4.37 M/UL (4.20-5.40) Hemoglobin 11.4 G/DL (12.0-16.0) L 11.4 G/DL (12.0-16.0) L Hematocrit 34.4 % (37.0-47.0) L 35.7 % (37.0-47.0) L Mean Corpuscular Volume 79 FL (80-99) L 82 FL (80-99) Mean Corpuscular Hemoglobin 26.3 PG (27.0-31.0) L 26.0 PG (27.0-31.0) L Mean Corpuscular Hemoglobin Concent 33.1 G/DL (32.0-36.0) 31.8 G/DL (32.0-36.0) L Red Cell Distribution Width 20.3 % (11.6-14.8) H 20.6 % (11.6-14.8) H Platelet Count 619 K/UL (150-450) H 578 K/UL (150-450) H Mean Platelet Volume 5.5 FL (6.5-10.1) L 5.4 FL (6.5-10.1) L Neutrophils (%) (Auto) 66.1 % (45.0-75.0) 49.6 % (45.0-75.0) Lymphocytes (%) (Auto) 25.9 % (20.0-45.0) 41.9 % (20.0-45.0) Monocytes (%) (Auto) 6.9 % (1.0-10.0) 6.1 % (1.0-10.0) Eosinophils (%) (Auto) 0.2 % (0.0-3.0) 1.2 % (0.0-3.0) Basophils (%) (Auto) 1.0 % (0.0-2.0) 1.2 % (0.0-2.0) Sodium Level 142 MMOL/L (136-145) 145 MMOL/L (136-145) Potassium Level 4.1 MMOL/L (3.5-5.1) 3.9 MMOL/L (3.5-5.1) Chloride Level 105 MMOL/L (98-107) 108 MMOL/L (98-107) H Carbon Dioxide Level 29 MMOL/L (21-32) 29 MMOL/L (21-32) Anion Gap 8 mmol/L (5-15) 8 mmol/L (5-15) Blood Urea Nitrogen 22 mg/dL (7-18) H 17 mg/dL (7-18) Creatinine 1.0 MG/DL (0.55-1.30) 0.9 MG/DL (0.55-1.30) Estimat Glomerular Filtration Rate 56.4 mL/min (>60) > 60 mL/min (>60) Glucose Level 86 MG/DL (74-106) 88 MG/DL (74-106) Lactic Acid Level 1.70 mmol/L (0.4-2.0) Calcium Level 8.4 MG/DL (8.5-10.1) L 8.1 MG/DL (8.5-10.1) L Total Bilirubin 0.1 MG/DL (0.2-1.0) L Aspartate Amino Transf (AST/SGOT) 17 U/L (15-37) Alanine Aminotransferase (ALT/SGPT) 36 U/L (12-78) Alkaline Phosphatase 89 U/L (46-116) Total Protein 7.4 G/DL (6.4-8.2) Albumin 3.4 G/DL (3.4-5.0) Globulin 4.0 g/dL Albumin/Globulin Ratio 0.9 (1.0-2.7) L Urine Color Yellow Urine Appearance Clear Urine pH 6.5 (4.5-8.0) Urine Specific [place] 1.010 (1.005-1.035) Urine Protein 1+ (NEGATIVE) H Urine Glucose (UA) Negative (NEGATIVE) Urine Ketones Negative (NEGATIVE) Urine Blood Negative (NEGATIVE) Urine Nitrite Negative (NEGATIVE) Urine Bilirubin Negative (NEGATIVE) Urine Urobilinogen Normal MG/DL (0.0-1.0) Urine Leukocyte Esterase 2+ (NEGATIVE) H Urine RBC 0-2 /HPF (0 - 2) Urine WBC 2-4 /HPF (0 - 2) Urine Squamous Epithelial Cells Moderate /LPF (NONE/OCC) H Urine Bacteria Few /HPF (NONE) Current Medications Medications (Trade) Dose Ordered Sig/Ashlyn Route PRN Reason Start Time Stop Time Status Last Admin Dose Admin Acetaminophen/ Hydrocodone Bitart (Kimberly 5/325) 1 tab Q4H PRN ORAL Moderate Pain (Pain Scale 4-6) 07/15/18 22:30 07/22/18 22:29 Albuterol Sulfate (Proventil MDI) 2 puff Q4H PRN INH Shortness of Breath 07/15/18 20:30 1/4/19 20:29 Atorvastatin Calcium (Lipitor) 10 mg DAILY ORAL 07/16/18 09:00 08/15/18 08:59 07/16/18 09:30 Clopidogrel Bisulfate (Plavix) 75 mg DAILY ORAL 07/16/18 09:00 08/15/18 08:59 07/16/18 09:31 Dextrose (Dextrose 50%) 25 ml Q30M PRN IV Hypoglycemia 07/15/18 20:45 08/14/18 20:44 Dextrose (Dextrose 50%) 50 ml Q30M PRN IV Hypoglycemia 07/15/18 20:45 08/14/18 20:44 Diazepam (Valium) 5 mg TIDPRN PRN ORAL ANXIETY 07/15/18 20:30 07/22/18 20:29 Diphenhydramine HCl (Benadryl) 25 mg Q6H PRN ORAL Itching 07/15/18 20:45 08/14/18 20:44 Docusate Sodium (Colace) 200 mg TWICE A DAY ORAL 07/16/18 09:00 08/15/18 08:59 07/16/18 09:30 Ferrous Sulfate (Feosol) 325 mg TWICE A DAY ORAL 07/16/18 09:00 08/15/18 08:59 07/16/18 09:30 Folic Acid (Folate) 1 mg DAILY ORAL 07/16/18 09:00 08/15/18 08:59 07/16/18 09:30 Hydromorphone HCl (Dilaudid) 0.5 mg Q4H PRN IVP Severe Pain (Pain Scale 7-10) 07/15/18 23:00 07/22/18 22:59 07/16/18 13:05 Hydroxychloroquine Sulfate (Plaquenil) 200 mg BID ORAL 07/16/18 09:00 08/15/18 08:59 07/16/18 09:30 Insulin Aspart (NovoLOG) BEFORE MEALS AND HS SUBQ 07/15/18 21:00 08/14/18 20:59 Methotrexate (metHOTREXate) 12.5 mg Sa@0900 ORAL 07/18/18 09:00 07/23/18 08:59 Vancomycin HCl (Vanco rx to dose) 1 ea DAILY PRN MISC Per rx protocol 07/15/18 20:00 08/14/18 19:59 Vancomycin/Sodium Chloride 250 ml @ 166.667 mls/hr Q12H IVPB 07/16/18 04:00 07/21/18 03:59 07/16/18 04:24 Dipesh Lee MD Jul 16, 2018 14:39
[2018-07-16 16:00] VITALS: BP 119/67
--- NOTE | 2018-07-16 17:47 | Consultation ---
Consult Note Consult Note HEME/ONC CONSULTATION REFERRING MD: Shaq Castañeda REASON FOR CONSULT: Leukocytosis, anemia, thrombocytosis DATE OF CONSULT: 07/16/2018 HPI Ms Chavis is a 63 yo female with h/o COPD, RA, HTN, DM who was recently diagnosed with flu/cap and copd exacerbation. After discharge patient was noted to have gram positive cocci on two out of two blood cultures. Patient was instructed to come back to the ED for IV abx and obtain repeat bcx. Patient also noted that she has not been taking the antibiotics she was discharged with. Currently she states she is feeling fatigue, fevers and chills. Denies any chest pain or sob. Hematology services consulted for the evaluation of anemia, leukocytosis, and thrombocytosis. Labs and imaging have been reviewed. code status reviewed, FULL CODE social hx reviewed, smokes half ppd, denies alcohol use fam hx reviewed, denies any sig past fam hx. Allergies: Coded Allergies: No Known Allergies (Unverified , 05/15/18) Medication History Scheduled Amitriptyline HCl (Elavil*), 75 MG ORAL BEDTIME, (Reported) Atorvastatin Calcium* (Lipitor*), 10 MG ORAL DAILY, (Reported) Azithromycin (Azithromycin), 500 MG ORAL DAILY Clopidogrel* (Clopidogrel*), 75 MG ORAL DAILY, (Reported) Docusate Sodium* (Docusate Sodium*), 200 MG ORAL TWICE A DAY, (Reported) Ferrous Sulfate* (Ferrous Sulfate*), 325 MG ORAL TWICE A DAY, (Reported) Folic Acid* (Folic Acid*), 1 MG ORAL 6xwk, (Reported) Hydroxychloroquine Sulfate (Hydroxychloroquine Sulfate), 200 MG PO BID, ( Reported) Metformin Hcl* (Metformin Hcl*), 1,000 MG ORAL BID, (Reported) Methotrexate Sodium* (Methotrexate*), 12.5 MG PO qSaturday, (Reported) Nystatin (Nystatin), 1 EACH MC BID Oseltamivir Phosphate (Tamiflu), 75 MG ORAL Q12HR Prednisone* (Prednisone*), 40 MG ORAL DAILY Scheduled PRN Albuterol Sulfate* (Albuterol Sulfate Mdi*), 2 PUFF INH Q4H PRN for Shortness of Breath Diazepam* (Valium*), 5 MG ORAL TID PRN for ANXIETY Hydrocodone Bit/Acetaminophen 10-325* ([place] 10-325*), 2 TAB ORAL Q4H PRN for For Pain Ipratropium/Albuterol Sulfate (DuoNeb 0.5-3(2.5)mg/3ml), 3 ML HHN Q4H PRN Discontinued Medications Fluticasone Propionate* (Fluticasone Propionate*), 1 SPRAY NASAL DAILY, ( Reported) Discontinued Reason: Pt stopped taking med Ibuprofen (Ibuprofen*), 200 MG ORAL FOUR TIMES A DAY Discontinued Reason: Pt stopped taking med Ipratropium/Albuterol Sulfate (Combivent Respimat Inhal Grant), 4 GM IH, ( Reported) Discontinued Reason: Pt stopped taking med Prednisone* (Prednisone*), 20 MG ORAL DAILY Discontinued Reason: Therapy completed Patient History History Provided By: Patient Healthcare decision maker Resuscitation status Advanced Directive on File Family History Family History: Father with DM Review of Systems ROS Narrative 14 point ros reviewed and negative except for the above Physical Exam General Appearance: WD/WN, no apparent distress Lines, tubes and drains: peripheral HEENT: normocephalic, atraumatic Neck: non-tender, normal alignment, supple Respiratory/Chest: chest wall non-tender, lungs clear, normal breath sounds, no respiratory distress, no accessory muscle use Cardiovascular/Chest: normal peripheral pulses, normal rate, regular rhythm Abdomen: normal bowel sounds, non tender, soft Extremities: normal range of motion, non-tender, normal inspection, no calf tenderness Skin Exam: normal pigmentation, warm/dry Neurologic: manager pricing II-XII grossly normal, no motor/sensory deficits, alert, oriented x 3, responsive, normal mood/affect MEDICATIONS: Current meds have been reviewed LABS:wbc 13.5 hgb 11.4 plt 578 IMAGING: CXR --> Left basilar atelectasis. No acute process otherwise ASSESSMENT AND RECOMMENDATIONS # Leukocytosis. Secondary to sepsis --> Peripheral has been ordered, results are pending --> Medications have been reviewed --> Imaging has been reviewed, reveals left basilar atelectasis --> Blood cultures are positive --> has been started on abx, empiric treatment # Anemia of chronic disease due to underlying chronic medical issues, multifactorial. --> Current Hgb >11, no w/u required at this time. --> Cont to monitor for stability # Thrombocytosis - likely related to underlying infection --> Continue to monitor for improvement --> Trend CBC as needed --> If continues to be elevated, consider to send for TIKI-2 --> Smear reviewed and no abnormalities noted. *Under manual differential #Gram Positive Sepsis #Gram Positive Bacteremia --> WBC 14, RR 21, gram pos cocci on bcx --> gram positive cocci in 2 out of 2 bcx, returned positive once patient was dc 'd home however patient also did not take the antibiotics she was prescribed -- >repeat blood cx x 2 --> vanco and IVF #Noncompliance --> educated on compliance for over 16 mins --> patient did not take antibiotics that she was discharged with as she was instructed to #HTN --> stable --> cont home meds #DM II --> iss --> accuchecks #CVA. --> stable --> resume home asa, statin GREATLY APPRECIATE CONSULTATION Lauro Cai MD Jul 16, 2018 17:46
[2018-07-16 20:00] VITALS: BP 144/76
[2018-07-16] MEDS: Norco 5mg/325mg tab ORAL PRN (23:36)
--- NOTE | 2018-07-16 23:45 | Consultation ---
DATE OF CONSULTATION: 07/16/2018 INFECTIOUS DISEASE CONSULTATION CONSULTING PHYSICIAN: Dipesh Lee M.D. ATTENDING PHYSICIAN: Shaq Castañeda M.D. REFERRING PHYSICIAN: Jie Solitario M.D. REASON FOR CONSULTATION: Gram-positive bacteremia, possible sepsis, and leukocytosis. CHIEF COMPLAINT: The patient's chief complaint coming to the hospital is bacteremia, positive blood cultures, gram-positive bacteremia. HISTORY OF PRESENT ILLNESS: This is a 63-year-old female, who was recently admitted in the hospital with the following. This was on July 11, previous admission. She was admitted for what looks like shortness of breath and cough. The patient was worked up. A CT scan of the chest showed no PE. The patient had blood cultures obtained. The patient was discharged on Tamiflu, azithromycin, and prednisone for what looks like a respiratory-type infection. Chest x-ray showed no obvious pneumonia, neither on CT scan. There was emphysema. The patient is a smoker. The patient was discharged and it was found out that she had gram-positive organisms in the blood. Identification of blood cultures has turned out to be coagulase-negative Staph species, which was Staphylococcus capitis, this was in both sets, one set had both bottles and the other set had one bottle it looks like, that is 3 out of 4 gram-positive organisms turning out to be again Staphylococcus capitis or coagulase-negative Staph. The patient was readmitted for IV antibiotics. The patient was started on vancomycin and the patient has been re-cultured. I have also ordered echo. Infectious Disease consultation was requested for antibiotic management. REVIEW OF SYSTEMS: CONSTITUTIONAL: She just had an infiltrated IV and has extremity discomfort, more so in the right arm. IV was removed. She denies any fever or chills. She has generalized fatigue. No focal weakness. HEAD AND NECK: No head pain or neck pain. No neck stiffness. CARDIAC: No chest pain. GASTROINTESTINAL: No nausea, vomiting, or diarrhea. GENITOURINARY: No Or[place]z. No dysuria or frequency. PULMONARY: No significant congestion, shortness of breath, hemoptysis, or secretions. SKIN: No rash or itching. EXTREMITIES: She has right arm pain secondary to infiltrated IV. NEUROLOGIC: No seizures. PAST MEDICAL HISTORY: Includes history of following. The patient has past medical history of rheumatoid arthritis. She has history of hyperlipidemia. She has history of COPD and emphysema. She was recently positive for influenza A. She was given Tamiflu for that. She has history of CVA in the past, history of COPD, and rheumatoid arthritis as already mentioned. She has history of microcytic anemia, history of diabetes, and hypertension also. ALLERGIES: No known drug allergies. No antibiotic allergies. SOCIAL HISTORY: Positive for smoking, alcohol, drug abuse. FAMILY HISTORY: Noncontributory. MEDICATIONS: Upon reviewing the MAR, she is on the following medications. She is on methotrexate, Lipitor, Plavix, Colace, folate, Feosol, Plaquenil, vancomycin, Dilaudid, hydrocodone, NovoLog insulin, dextrose, diphenhydramine, Proventil, diazepam, and vancomycin per pharmacy. Outside medications noted and reconciliated. PHYSICAL EXAMINATION: VITAL SIGNS: Temperature 97.9, pulse rate 73, respiratory rate 18, blood pressure 157/97, and saturation 96%. GENERAL: Alert, responsive, in no acute distress. HEAD AND NECK: Oral exam, no thrush. Eye exam, no icterus. No JVD. Normocephalic. No icterus or thrush. Neck is supple. HEART: Regular. No obvious gallop or murmur. ABDOMEN: Soft. Positive bowel sounds. Nontender. LUNGS: Few bilateral rhonchi. No definite rales. Mostly clear bilaterally. SKIN: No rash. MUSCULOSKELETAL: No effusion. Legs are without cellulitis. PERIPHERAL VASCULAR: No cyanosis or gangrene. Right arm had infiltrated IV. No cellulitis, however. NEUROLOGIC: Intact. Alert and oriented x3. LINE SITES: IV was removed from the right arm. GENITOURINARY: No CVA tenderness. LABORATORY AND DIAGNOSTIC DATA: Laboratory data as follows. White count 13.5, hemoglobin 11.4. White count was as high as 14.9. Creatinine is 0.9. LFTs noted. UA had only 2 to 4 white cells, however, 2+ leukocyte esterase. Urine culture has been ordered. Followup blood cultures have been ordered on this admission. Previous blood cultures from recent admission had Staphylococcus capitis consistent with coagulase-negative Staph in 3 out of 4 bottles in both sets which were positive. Both sets of blood culture have been positive. Imaging studies, previous CT scan of the chest showed no pneumonia, currently chest screen was positive on the last admission. ASSESSMENT AND PLAN: 1. The patient has coagulase-negative Staphylococcus/Staphylococcus capitis bacteremia and gram-positive bacteremia with multiple bottles and 3 out of 4, both blood culture sets. This probably should be considered a true bacteremia since the patient is immunocompromised with methotrexate and history of rheumatoid arthritis. At this time, I agree with vancomycin. The Staphylococcus capitis is fairly sensitive, however, vancomycin is still the drug of choice for coagulase-negative Staphylococcus organisms. We will continue vancomycin. Check blood cultures here. Check echocardiogram to rule out endocarditis even though this is unlikely. Check surveillance blood cultures. Continue vancomycin for now. Monitor creatinine on vancomycin. The patient also has possible sepsis secondary to coagulase-negative Staphylococcus/Staphylococcus capitis bacteremia with elevated white count, however, the patient has also been on steroids, which could contribute to the leukocytosis. Follow up on surveillance blood cultures also. 2. The patient has influenza A infection. We will finish course of Tamiflu. We will discuss with pharmacy to see how long she has been on it and if she might need a couple of more days of Tamiflu for influenza A infection. 3. The patient has history of CVA. 4. Rheumatoid arthritis. Treatment per primary. 5. COPD. 6. Emphysema. 7. Microcytic anemia. 8. Diabetes. 9. Hypertension. 10. Continue treatment per primary consultants. 11. No known allergies. 12. Social history positive for smoking. 13. Family history noncontributory. 14. MAR was noted. 15. Case was discussed with RN. 16. Case was discussed with the patient. 17. Continue treatment per primary consultants. Dipesh Lee M.D. DR: WALTER JOB#: [id number] CC:
[2018-07-17] VITALS: BP 136/67
[2018-07-17] MEDS: HYDROmorphone 1mg/ml Carpuject IVP PRN ×5 (02:37→21:48)
[2018-07-17] MEDS: Vancomycin 750mg/NS 250ml IVPB SCH (03:29)
[2018-07-17 03:32] LABS: BASOPHILS % (AUTO) 0.9 % (0.0-2.0); EOSINOPHILS % (AUTO) 3.7 % (0.0-3.0); HEMATOCRIT 34.9 % (37.0-47.0); HEMOGLOBIN 10.9 G/DL (12.0-16.0); LYMPHOCYTES % (AUTO) 38.7 % (20.0-45.0); MEAN CORPUSCULAR VOLUME 82 FL (80-99); NEUTROPHILS % (AUTO) 49.8 % (45.0-75.0); PLATELET COUNT 542 K/UL (150-450); RED BLOOD COUNT 4.25 M/UL (4.20-5.40); RED CELL DISTRIBUTION WIDTH 20.4 % (11.6-14.8); WHITE BLOOD COUNT 12.5 K/UL (4.8-10.8)
[2018-07-17 03:36] LABS: ANION GAP 6 mmol/L (5-15); BLOOD UREA NITROGEN 16 mg/dL (7-18); CALCIUM 8.3 MG/DL (8.5-10.1); CARBON DIOXIDE 31 MMOL/L (21-32); CHLORIDE 108 MMOL/L (98-107); CREATININE 0.8 MG/DL (0.55-1.30); POTASSIUM 4.7 MMOL/L (3.5-5.1); SODIUM 145 MMOL/L (136-145)
[2018-07-17 04:00] VITALS: BP 139/79
[2018-07-17] MEDS ORDERED: Vancomycin 500mg/D5W 110ml IVPB ONE ×2 (05:00)
[2018-07-17] MEDS: NovoLOG Insulin Flexpen SUBQ SCH ×4 (06:06→20:18)
[2018-07-17] MEDS: Norco 5mg/325mg tab ORAL PRN ×2 (06:14→19:57)
--- NOTE | 2018-07-17 07:09 | General Progress Note ---
Assessment/Plan Assessment/Plan ASSESSMENT AND RECOMMENDATIONS # Leukocytosis. Secondary to sepsis staph capitis, bacteremia in setting of methotrexate and immunocomp[romised state --> Peripheral has been ordered, no blasts, abnml cells noted --> Medications have been reviewed --> Imaging has been reviewed, reveals left basilar atelectasis --> Blood cultures are positive from outside, have been repeated --> has been started on abx, empiric treatment # Anemia of iron deficiency ferritin 31 last admission --> Current Hgb >11, no w/u required at this time. --> Cont to monitor for stability --> ANEMIA PANEL HAS BEEN ORDERED # Thrombocytosis - likely related to underlying infection --> Continue to monitor for improvement --> Trend CBC as needed --> If continues to be elevated, consider to send for TIKI-2 --> Smear reviewed and no abnormalities noted. *Under manual differential # Gram Positive Bacteremia/sepsis --> WBC 14, RR 21, gram pos cocci on bcx --> gram positive cocci in 2 out of 2 bcx, returned positive once patient was dc 'd home however patient also did not take the antibiotics she was prescribed -- >repeat blood cx x 2 --> vanco and IVF # Noncompliance --> educated on compliance for over 16 mins --> patient did not take antibiotics that she was discharged with as she was instructed to # HTN --> stable --> cont home meds # DM II --> iss --> accuchecks # CVA. --> stable --> resume home asa, statin GREATLY APPRECIATE CONSULTATION Subjective Constitutional: Denies: no symptoms, chills, diaphoresis, fever, malaise, weakness, other HEENT: Denies: no symptoms, eye pain, blurred vision, tearing, double vision, ear pain, ear discharge, nose pain, nose congestion, throat pain, throat swelling, mouth pain, mouth swelling, other Cardiovascular: Denies: no symptoms, chest pain, edema, irregular heart rate, lightheadedness, palpitations, syncope, other Respiratory: Denies: no symptoms, cough, orthopnea, shortness of breath, SOB with excertion, SOB at rest, sputum, stridor, wheezing, other Gastrointestinal/Abdominal: Denies: no symptoms, abdomen distended, abdominal pain, black stools, tarry stools, blood in stool, constipated, diarrhea, difficulty swallowing, nausea, poor appetite, poor fluid intake, rectal bleeding , vomiting, other Genitourinary: Denies: no symptoms, burning, discharge, frequency, flank pain, hematuria, incontinence, pain, urgency, other Neurologic/Psychiatric: Denies: no symptoms, anxiety, depressed, emotional problems, headache, numbness, paresthesia, pre-existing deficit, seizure, tingling, tremors, weakness, other Endocrine: Denies: no symptoms, excessive sweating, flushing, intolerance to cold, intolerance to heat, increased hunger, increased thirst, increased urine, unexplained weight gain, unexplained weight loss, other Allergies: Coded Allergies: No Known Allergies (Unverified , 05/15/18) Subjective no fevers or chills, on abx, some pain in back this am Objective Last 24 Hour Vital Signs Date Time Temp Pulse Resp B/P (MAP) Pulse Ox O2 Delivery O2 Flow Rate FiO2 07/17/18 04:00 98.0 74 18 139/79 (99) 97 07/17/18 00:00 98.0 77 18 136/67 (90) 97 07/16/18 21:00 Room Air 07/16/18 20:00 98.0 79 18 144/76 (98) 96 07/16/18 16:00 97.4 74 20 119/67 (84) 96 07/16/18 12:00 97.9 73 18 157/97 (117) 96 07/16/18 09:00 Room Air 07/16/18 08:00 97.6 79 12 140/69 (92) 95 Intake and Output 07/16/18 07/17/18 18:59 06:59 Intake Total 1338.000 ml 750 ml Balance 1338.000 ml 750 ml Intake Oral 588 ml 750 ml IV Total 750.000 ml # Voids 4 7 # Bowel Movements 1 Laboratory Tests 07/17/18 03:16: White Blood Count 12.5H, Red Blood Count 4.25, Hemoglobin 10.9L, Hematocrit 34.9L, Mean Corpuscular Volume 82, Mean Corpuscular Hemoglobin 25.7L, Mean Corpuscular Hemoglobin Concent 31.3L, Red Cell Distribution Width 20.4H, Platelet Count 542H, Mean Platelet Volume 5.7L, Neutrophils (%) (Auto) 49.8, Lymphocytes (%) (Auto) 38.7, Monocytes (%) (Auto) 7.0, Eosinophils (%) (Auto) 3.7H, Basophils (%) (Auto) 0.9, Sodium Level 145, Potassium Level 4.7, Chloride Level 108H, Carbon Dioxide Level 31, Anion Gap 6, Blood Urea Nitrogen 16, Creatinine 0.8, Estimat Glomerular Filtration Rate > 60, Glucose Level 105, Calcium Level 8.3L, Vancomycin Level Trough 9.6 Height (Feet): 5 Height (Inches): 4.00 Weight (Pounds): 140 General Appearance: alert EENT: normal ENT inspection Neck: supple Cardiovascular: normal rate Respiratory/Chest: no respiratory distress Abdomen: non tender Extremities: normal inspection Edema: 1+ Leg (L), 1+ Leg (R) Edema: mild edema Neurologic: alert Skin: warm/dry Lauro Cai MD Jul 17, 2018 07:09
[2018-07-17 08:00] VITALS: BP 151/59
[2018-07-17] MEDS: Docusate 100mg cap ORAL SCH ×2 (08:44→17:25)
[2018-07-17 12:00] VITALS: BP 133/79
--- NOTE | 2018-07-17 12:48 | General Progress Note ---
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 - Rheumatic fever without heart involvement SNOMED: 574331393 (2) CVA (cerebral vascular accident) ICD Codes: I63.9 - Cerebral infarction, unspecified SNOMED: 736510005 Qualifiers: Qualified Codes: I63.9 - Cerebral infarction, unspecified (3) Noncompliance ICD Codes: Z91.19 - Patient's noncompliance with other medical treatment and regimen SNOMED: 6929269 (4) COPD (chronic obstructive pulmonary disease) ICD Codes: J44.9 - Chronic obstructive pulmonary disease, unspecified SNOMED: 19113681 (5) Influenza A ICD Codes: J10.1 - Influenza due to other identified influenza virus with other respiratory manifestations SNOMED: 196053714 (6) Gram-positive bacteremia ICD Codes: R78.81 - Bacteremia SNOMED: 635568449392 (7) Diabetes ICD Codes: E11.9 - Type 2 diabetes mellitus without complications SNOMED: 45479954 Qualifiers: Qualified Codes: E11.9 - Type 2 diabetes mellitus without complications (8) HTN (hypertension) ICD Codes: I10 - Essential (primary) hypertension SNOMED: 82532691 Qualifiers: Qualified Codes: I10 - Essential (primary) hypertension Assessment/Plan #Staphylococcus capitis bacteremia - Leukocytosis improving - Continue vancomycin and monitor drug levels per pharmacy protocol - ID followup appreciated - followup repeat blood cultures #Chest pain, chest wall tenderness - Check EKG and troponin - Provide symptomatic care #Medical noncompliance -educated on compliance for over 16 mins -patient did not take antibiotics that she was discharged with as she was instructed to #HTN - stable - cont home meds #DM II - iss - accuchecks #Microcytic Anemia secondary to iron deficiency - stable - hematology following - no acute blood loss #CVA - old - stable - resume home asa, statin #RA - stable - hold MTX in the setting of acute infection #Smoker - Educated on smoking cessation for over 15 minutes - patient states she understands and is trying to quit - verbalizes that she will make more of an effort #COPD - stable - breathing well - breathing tx prn ppx: heparin, scd diet: Diabetic I have spent over 50 minutes regarding patient care and counseling and over 30 minutes of face to face time with the patient. Subjective Date patient seen: Jul 17, 2018 Time patient seen: 12:15 ROS Limited/Unobtainable: No Constitutional: Denies: chills, fever HEENT: Denies: eye pain Cardiovascular: Reports: chest pain Respiratory: Denies: cough Gastrointestinal/Abdominal: Denies: abdomen distended, abdominal pain Genitourinary: Denies: burning, discharge Neurologic/Psychiatric: Denies: anxiety, depressed Endocrine: Denies: excessive sweating Hematologic/Lymphatic: Denies: easy bleeding Allergies: Coded Allergies: No Known Allergies (Unverified , 05/15/18) Subjective Medicine follow up for gram positive bacteremia - she reports left breast pain since yesterday at 6PM going to her back. Objective Last 24 Hour Vital Signs Date Time Temp Pulse Resp B/P (MAP) Pulse Ox O2 Delivery O2 Flow Rate FiO2 07/17/18 12:00 97.4 75 19 133/79 (97) 98 07/17/18 09:00 Room Air 07/17/18 08:00 98.3 104 12 151/59 (89) 07/17/18 04:00 98.0 74 18 139/79 (99) 97 07/17/18 00:00 98.0 77 18 136/67 (90) 97 07/16/18 21:00 Room Air 07/16/18 20:00 98.0 79 18 144/76 (98) 96 07/16/18 16:00 97.4 74 20 119/67 (84) 96 Intake and Output 07/16/18 07/17/18 18:59 06:59 Intake Total 1338.000 ml 750 ml Balance 1338.000 ml 750 ml Intake Oral 588 ml 750 ml IV Total 750.000 ml # Voids 4 7 # Bowel Movements 1 Laboratory Tests 07/17/18 03:16: White Blood Count 12.5H, Red Blood Count 4.25, Hemoglobin 10.9L, Hematocrit 34.9L, Mean Corpuscular Volume 82, Mean Corpuscular Hemoglobin 25.7L, Mean Corpuscular Hemoglobin Concent 31.3L, Red Cell Distribution Width 20.4H, Platelet Count 542H, Mean Platelet Volume 5.7L, Neutrophils (%) (Auto) 49.8, Lymphocytes (%) (Auto) 38.7, Monocytes (%) (Auto) 7.0, Eosinophils (%) (Auto) 3.7H, Basophils (%) (Auto) 0.9, Sodium Level 145, Potassium Level 4.7, Chloride Level 108H, Carbon Dioxide Level 31, Anion Gap 6, Blood Urea Nitrogen 16, Creatinine 0.8, Estimat Glomerular Filtration Rate > 60, Glucose Level 105, Calcium Level 8.3L, Vancomycin Level Trough 9.6 Height (Feet): 5 Height (Inches): 4.00 Weight (Pounds): 140 General Appearance: no apparent distress, alert EENT: PERRL/EOMI, normal ENT inspection Neck: non-tender, normal alignment Cardiovascular: normal peripheral pulses, normal rate, regular rhythm Respiratory/Chest: lungs clear, normal breath sounds, other - Chest wall tenderness Abdomen: normal bowel sounds, non tender Extremities: inflammation - Bilateral MCP Edema: trace edema 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
[2018-07-17 13:00] LABS: % IRON SATURATION 41 % (15-50); IRON 122 ug/dL (50-175); TOTAL IRON BINDING CAPACITY 301 ug/dL (250-450)
[2018-07-17 13:12] LABS: FERRITIN 24 NG/ML (8-388)
--- NOTE | 2018-07-17 14:49 | Infectious Diseases Prog Note ---
Assessment/Plan Assessment/Plan ASSESSMENT AND PLAN: 1. coagulase-negative Staphylococcus/Staphylococcus capitis bacteremia - 3/4 bottles positive on previous admission, possible sepsis, leukocytosis, recent steroids and influenza A infection, s/ p tamiflu/abx, chest x-ray atx, uc-negative - vancomycin - day # 2 abx - check f/u blood cultures and 2D-echo - monitor labs - consider oral abx soon if blood cultures remain negative 3. The patient has history of CVA. 4. Rheumatoid arthritis. Treatment per primary. 5. COPD. 6. Emphysema. 7. Microcytic anemia. 8. Diabetes. 9. Hypertension. 10. Continue treatment per primary consultants. 11. No known allergies. 12. Social history positive for smoking. 13. Family history noncontributory. 14. MAR was noted. 15. Case was discussed with RN. 16. Case was discussed with the patient. Subjective Constitutional: Denies: fever HEENT: Denies: congestion Respiratory: Denies: shortness of breath Cardiovascular: Denies: chest pain Gastrointestinal/Abdominal: Denies: nausea, vomiting, diarrhea Genitourinary: Reports: other - no mijares, no cva pain ; Denies: dysuria, hematuria Neurologic: Denies: headache Skin: Denies: rash Hematologic: Denies: bleeding Musculoskeletal: Reports: pain - extremity pain noted Allergies: Coded Allergies: No Known Allergies (Unverified , 05/15/18) Objective Vital Signs Last 24 Hour Vital Signs Date Time Temp Pulse Resp B/P (MAP) Pulse Ox O2 Delivery O2 Flow Rate FiO2 07/17/18 12:00 97.4 75 19 133/79 (97) 98 07/17/18 09:00 Room Air 07/17/18 08:00 98.3 104 12 151/59 (89) 07/17/18 04:00 98.0 74 18 139/79 (99) 97 07/17/18 00:00 98.0 77 18 136/67 (90) 97 07/16/18 21:00 Room Air 07/16/18 20:00 98.0 79 18 144/76 (98) 96 07/16/18 16:00 97.4 74 20 119/67 (84) 96 Height (Feet): 5 Height (Inches): 4.00 Weight (Pounds): 140 General Appearance: no acute distress HEENT: normocephalic, atraumatic, anicteric, mucous membranes moist Respiratory/Chest: lungs clear, normal breath sounds, no respiratory distress, no accessory muscle use Cardiovascular: normal rate, regular rhythm, no gallop/murmur, no JVD Abdomen: normal bowel sounds, soft, non tender, no organomegaly, non distended Genitourinary: other - no mijares, no cva pain Extremities: no cyanosis Skin: no rash 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 The lungs and pleural spaces are otherwise clear. The heart size is normal. The aorta is tortuous and calcified. No significant interim change Impression: Left basilar atelectasis. No acute process otherwise Microbiology Date/Time Source Procedure Growth Status 07/15/18 15:30 Blood Blood Culture - Preliminary NO GROWTH AFTER 24 HOURS Resulted 07/15/18 15:15 Blood Blood Culture - Preliminary NO GROWTH AFTER 24 HOURS Resulted 07/15/18 17:37 Nasal Nares MRSA Culture - Final NO METHICILLIN RESISTANT STAPH AUREUS... Complete 07/16/18 18:00 Urine,Clean Catch Urine Culture - Preliminary NO GROWTH Resulted 07/15/18 17:37 Rectum VRE Culture - Final NO VANCOMYCIN RESISTANT ENTEROCOCCUS ... Complete 07/15/18 17:37 Rectum - Final NO CARBAPENEM-RESISTANT ENTEROBACTERI... Complete Laboratory Tests Test 07/17/18 03:16 White Blood Count 12.5 K/UL (4.8-10.8) H Red Blood Count 4.25 M/UL (4.20-5.40) Hemoglobin 10.9 G/DL (12.0-16.0) L Hematocrit 34.9 % (37.0-47.0) L Mean Corpuscular Volume 82 FL (80-99) Mean Corpuscular Hemoglobin 25.7 PG (27.0-31.0) L Mean Corpuscular Hemoglobin Concent 31.3 G/DL (32.0-36.0) L Red Cell Distribution Width 20.4 % (11.6-14.8) H Platelet Count 542 K/UL (150-450) H Mean Platelet Volume 5.7 FL (6.5-10.1) L Neutrophils (%) (Auto) 49.8 % (45.0-75.0) Lymphocytes (%) (Auto) 38.7 % (20.0-45.0) Monocytes (%) (Auto) 7.0 % (1.0-10.0) Eosinophils (%) (Auto) 3.7 % (0.0-3.0) H Basophils (%) (Auto) 0.9 % (0.0-2.0) Sodium Level 145 MMOL/L (136-145) Potassium Level 4.7 MMOL/L (3.5-5.1) Chloride Level 108 MMOL/L (98-107) H Carbon Dioxide Level 31 MMOL/L (21-32) Anion Gap 6 mmol/L (5-15) Blood Urea Nitrogen 16 mg/dL (7-18) Creatinine 0.8 MG/DL (0.55-1.30) Estimat Glomerular Filtration Rate > 60 mL/min (>60) Glucose Level 105 MG/DL (74-106) Calcium Level 8.3 MG/DL (8.5-10.1) L Iron Level 122 ug/dL (50-175) Total Iron Binding Capacity 301 ug/dL (250-450) Percent Iron Saturation 41 % (15-50) Unsaturated Iron Binding 179 ug/dL (112-346) Ferritin 24 NG/ML (8-388) Vancomycin Level Trough 9.6 ug/mL (5.0-12.0) Current Medications Medications (Trade) Dose Ordered Sig/Ashlyn Route PRN Reason Start Time Stop Time Status Last Admin Dose Admin Acetaminophen/ Hydrocodone Bitart ([place] 5/325) 1 tab Q4H PRN ORAL Moderate Breakthru Pain (5-7) 07/17/18 02:30 07/22/18 22:29 07/17/18 06:14 Albuterol Sulfate (Proventil MDI) 2 puff Q4H PRN INH Shortness of Breath 07/15/18 20:30 08/14/18 20:29 Atorvastatin Calcium (Lipitor) 10 mg DAILY ORAL 07/16/18 09:00 08/15/18 08:59 07/17/18 08:43 Clopidogrel Bisulfate (Plavix) 75 mg DAILY ORAL 07/16/18 09:00 08/15/18 08:59 07/17/18 08:43 Dextrose (Dextrose 50%) 25 ml Q30M PRN IV Hypoglycemia 07/15/18 20:45 08/14/18 20:44 Dextrose (Dextrose 50%) 50 ml Q30M PRN IV Hypoglycemia 07/15/18 20:45 08/14/18 20:44 Diazepam (Valium) 5 mg TIDPRN PRN ORAL ANXIETY 07/15/18 20:30 07/22/18 20:29 07/16/18 23:35 Diphenhydramine HCl (Benadryl) 25 mg Q6H PRN ORAL Itching 07/15/18 20:45 08/14/18 20:44 Docusate Sodium (Colace) 200 mg TWICE A DAY ORAL 07/16/18 09:00 08/15/18 08:59 07/17/18 08:44 Ferrous Sulfate (Feosol) 325 mg TWICE A DAY ORAL 07/16/18 09:00 08/15/18 08:59 07/17/18 08:43 Folic Acid (Folate) 1 mg DAILY ORAL 07/16/18 09:00 08/15/18 08:59 07/17/18 08:43 Hydromorphone HCl (Dilaudid) 0.5 mg Q4H PRN IVP Severe Pain (Pain Scale 7-10) 07/15/18 23:00 07/22/18 22:59 07/17/18 12:53 Hydroxychloroquine Sulfate (Plaquenil) 200 mg BID ORAL 07/16/18 09:00 08/15/18 08:59 07/17/18 08:43 Insulin Aspart (NovoLOG) BEFORE MEALS AND HS SUBQ 07/15/18 21:00 08/14/18 20:59 07/16/18 21:10 Methotrexate (metHOTREXate) 12.5 mg Sa@0900 ORAL 07/18/18 09:00 07/23/18 08:59 Vancomycin HCl (Vanco rx to dose) 1 ea DAILY PRN MISC Per rx protocol 07/15/18 20:00 08/14/18 19:59 Vancomycin HCl/ Dextrose 250 ml @ 166.667 mls/hr Q12H IVPB 07/17/18 17:00 07/22/18 16:59 Dipesh Lee MD Jul 17, 2018 14:49
[2018-07-17 16:00] VITALS: BP 145/79
[2018-07-17] MEDS: Vancomycin 1250mg/D5W 250ml IVPB SCH (17:25)
[2018-07-17 20:00] VITALS: BP 132/69
[2018-07-18] VITALS: BP 135/65
[2018-07-18] MEDS: Norco 5mg/325mg tab ORAL PRN ×6 (00:16→23:08)
[2018-07-18] MEDS: HYDROmorphone 1mg/ml Carpuject IVP PRN ×3 (02:12→13:02)
[2018-07-18 04:00] VITALS: BP 131/68
[2018-07-18] MEDS: Vancomycin 1250mg/D5W 250ml IVPB SCH ×2 (05:04→17:14)
[2018-07-18] MEDS: NovoLOG Insulin Flexpen SUBQ SCH ×4 (05:45→21:15)
[2018-07-18 07:25] LABS: BASOPHILS % (AUTO) 1.2 % (0.0-2.0); EOSINOPHILS % (AUTO) 4.9 % (0.0-3.0); HEMATOCRIT 35.1 % (37.0-47.0); HEMOGLOBIN 11.1 G/DL (12.0-16.0); LYMPHOCYTES % (AUTO) 31.8 % (20.0-45.0); MEAN CORPUSCULAR VOLUME 82 FL (80-99); MONOCYTES % (AUTO) 7.6 % (1.0-10.0); NEUTROPHILS % (AUTO) 54.5 % (45.0-75.0); PLATELET COUNT 531 K/UL (150-450); RED CELL DISTRIBUTION WIDTH 20.9 % (11.6-14.8); WHITE BLOOD COUNT 11.7 K/UL (4.8-10.8)
[2018-07-18 07:32] LABS: ANION GAP 5 mmol/L (5-15); BLOOD UREA NITROGEN 15 mg/dL (7-18); CALCIUM 8.2 MG/DL (8.5-10.1); CARBON DIOXIDE 29 MMOL/L (21-32); CHLORIDE 107 MMOL/L (98-107); CREATININE 0.8 MG/DL (0.55-1.30); POTASSIUM 4.6 MMOL/L (3.5-5.1); SODIUM 141 MMOL/L (136-145)
[2018-07-18 08:00] VITALS: BP 134/86
[2018-07-18] MEDS: Docusate 100mg cap ORAL SCH ×2 (08:03→17:13)
[2018-07-18 12:00] VITALS: BP 147/73
[2018-07-18 15:36] VITALS: BP 147/58
--- NOTE | 2018-07-18 16:45 | General Progress Note ---
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 - Rheumatic fever without heart involvement SNOMED: 298335760 (2) CVA (cerebral vascular accident) ICD Codes: I63.9 - Cerebral infarction, unspecified SNOMED: 930838210 Qualifiers: Qualified Codes: I63.9 - Cerebral infarction, unspecified (3) Noncompliance ICD Codes: Z91.19 - Patient's noncompliance with other medical treatment and regimen SNOMED: 3335737 (4) COPD (chronic obstructive pulmonary disease) ICD Codes: J44.9 - Chronic obstructive pulmonary disease, unspecified SNOMED: 40084469 (5) Influenza A ICD Codes: J10.1 - Influenza due to other identified influenza virus with other respiratory manifestations SNOMED: 969592878 (6) Gram-positive bacteremia ICD Codes: R78.81 - Bacteremia SNOMED: 554088533836 (7) Diabetes ICD Codes: E11.9 - Type 2 diabetes mellitus without complications SNOMED: 94708367 Qualifiers: Qualified Codes: E11.9 - Type 2 diabetes mellitus without complications (8) HTN (hypertension) ICD Codes: I10 - Essential (primary) hypertension SNOMED: 04006486 Qualifiers: Qualified Codes: I10 - Essential (primary) hypertension Assessment/Plan #Staphylococcus capitis bacteremia - Leukocytosis improving - Continue vancomycin and monitor drug levels per pharmacy protocol - ID followup appreciated - followup repeat blood cultures #Chest pain, chest wall tenderness - EKG negative - Provide symptomatic care but minimize narcotics. Discontinue Dilaudid. #Medical noncompliance -educated on compliance for over 16 mins -patient did not take antibiotics that she was discharged with as she was instructed to #HTN - stable - cont home meds #DM II - iss - accuchecks #Microcytic Anemia secondary to iron deficiency - stable - hematology following - no acute blood loss #CVA - old - stable - resume home asa, statin #RA - stable - hold MTX in the setting of acute infection #Smoker - Educated on smoking cessation for over 15 minutes - patient states she understands and is trying to quit - verbalizes that she will make more of an effort #COPD - stable - breathing well - breathing tx prn ppx: heparin, scd diet: Diabetic I have spent over 60 minutes regarding patient care and counseling and over 33 minutes of face to face time with the patient. Subjective Date patient seen: Jul 18, 2018 Time patient seen: 16:30 ROS Limited/Unobtainable: No Constitutional: Denies: chills, fever Cardiovascular: Denies: chest pain, edema Respiratory: Denies: cough, orthopnea Gastrointestinal/Abdominal: Denies: abdomen distended, abdominal pain Neurologic/Psychiatric: Denies: anxiety Endocrine: Denies: excessive sweating Hematologic/Lymphatic: Denies: anemia Allergies: Coded Allergies: No Known Allergies (Unverified , 05/15/18) Subjective Medicine follow up for gram positive bacteremia - no new complaints. Persistent chest wall pain on the left side. Objective Last 24 Hour Vital Signs Date Time Temp Pulse Resp B/P (MAP) Pulse Ox O2 Delivery O2 Flow Rate FiO2 07/18/18 15:36 98.5 75 20 147/58 (87) 96 07/18/18 15:17 98.5 07/18/18 13:32 97.8 07/18/18 12:00 97.8 71 20 147/73 (97) 95 07/18/18 09:00 Room Air 07/18/18 08:00 98.0 79 20 134/86 (102) 95 07/18/18 04:00 97.9 72 18 131/68 (89) 98 07/18/18 00:00 98.3 82 18 135/65 (88) 97 07/17/18 21:00 Room Air 07/17/18 20:00 98.3 82 19 132/69 (90) 97 Intake and Output 07/17/18 07/18/18 18:59 06:59 Intake Total 1050.000 ml 1650.000 ml Output Total 1200 ml Balance -150.000 ml 1650.000 ml Intake Oral 1400 ml IV Total 250.000 ml 250.000 ml Other 800 ml Output Urine Total 1200 ml # Voids 5 Laboratory Tests 07/17/18 18:00: Troponin I 0.000 07/18/18 06:31: White Blood Count 11.7H, Red Blood Count 4.30, Hemoglobin 11.1L, Hematocrit 35.1L, Mean Corpuscular Volume 82, Mean Corpuscular Hemoglobin 25.9L, Mean Corpuscular Hemoglobin Concent 31.8L, Red Cell Distribution Width 20.9H, Platelet Count 531H, Mean Platelet Volume 6.1L, Neutrophils (%) (Auto) 54.5, Lymphocytes (%) (Auto) 31.8, Monocytes (%) (Auto) 7.6, Eosinophils (%) (Auto) 4.9H, Basophils (%) (Auto) 1.2, Sodium Level 141, Potassium Level 4.6, Chloride Level 107, Carbon Dioxide Level 29, Anion Gap 5, Blood Urea Nitrogen 15, Creatinine 0.8, Estimat Glomerular Filtration Rate > 60, Glucose Level 99, Calcium Level 8.2L Height (Feet): 5 Height (Inches): 4.00 Weight (Pounds): 140 General Appearance: no apparent distress, alert Neck: normal alignment, supple Cardiovascular: normal rate, regular rhythm, other - Chest wall tenderness Respiratory/Chest: lungs clear, normal breath sounds Abdomen: non tender, 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
[2018-07-18 20:00] VITALS: BP 144/71
[2018-07-19] VITALS: BP 144/70
[2018-07-19] MEDS: Norco 5mg/325mg tab ORAL PRN ×5 (02:57→22:57)
[2018-07-19 04:00] VITALS: BP 136/78
[2018-07-19] MEDS: Vancomycin 1250mg/D5W 250ml IVPB SCH (04:56)
[2018-07-19] MEDS: NovoLOG Insulin Flexpen SUBQ SCH ×4 (06:08→20:54)
[2018-07-19 08:00] VITALS: BP 128/62
[2018-07-19] MEDS: Docusate 100mg cap ORAL SCH ×2 (09:20→17:28)
[2018-07-19 12:00] VITALS: BP 137/70
--- NOTE | 2018-07-19 14:32 | Infectious Diseases Prog Note ---
Assessment/Plan Assessment/Plan ASSESSMENT AND PLAN: 1. coagulase-negative Staphylococcus/Staphylococcus capitis bacteremia - 3/4 bottles positive on previous admission, possible sepsis, leukocytosis, recent steroids and influenza A infection, s/ p tamiflu/abx, chest x-ray atx, uc-negative - vancomycin - day # 4 abx - can change to po doxycycline 100 mg bid x 5 days soon - f/u on echo - monitor labs, leukocytosis better - surveillance blood cultures negative 3. The patient has history of CVA. 4. Rheumatoid arthritis. Treatment per primary. 5. COPD. 6. Emphysema. 7. Microcytic anemia. 8. Diabetes. 9. Hypertension. 10. Continue treatment per primary consultants. 11. No known allergies. 12. Social history positive for smoking. 13. Family history noncontributory. 14. MAR was noted. 15. Case was discussed with RN. 16. Case was discussed with the patient. Subjective Constitutional: Reports: fatigue; Denies: fever, chills HEENT: Denies: congestion Respiratory: Denies: shortness of breath Breasts: Denies: discharge Cardiovascular: Denies: chest pain Gastrointestinal/Abdominal: Denies: nausea, vomiting, diarrhea Neurologic: Denies: headache Psychiatric: Denies: depression Skin: Denies: rash Hematologic: Denies: bleeding Musculoskeletal: Denies: pain Allergies: Coded Allergies: No Known Allergies (Unverified , 05/15/18) Objective Vital Signs Last 24 Hour Vital Signs Date Time Temp Pulse Resp B/P (MAP) Pulse Ox O2 Delivery O2 Flow Rate FiO2 07/19/18 12:00 96.1 84 20 137/70 (92) 94 07/19/18 09:51 98.2 07/19/18 09:00 Room Air 07/19/18 08:00 98.2 89 20 128/62 (84) 98 07/19/18 04:00 99.2 78 19 136/78 (97) 99 07/19/18 00:00 98.6 82 19 144/70 (94) 98 07/18/18 21:00 Room Air 07/18/18 20:00 97.9 74 19 144/71 (95) 98 07/18/18 15:36 98.5 75 20 147/58 (87) 96 Height (Feet): 5 Height (Inches): 4.00 Weight (Pounds): 140 General Appearance: no acute distress HEENT: normocephalic, atraumatic, anicteric, mucous membranes moist Respiratory/Chest: chest wall non-tender, lungs clear, normal breath sounds, no respiratory distress Cardiovascular: normal rate, regular rhythm, no gallop/murmur, no JVD Abdomen: normal bowel sounds, soft, non tender, no organomegaly, non distended Genitourinary: other - no mijares Extremities: no cyanosis Skin: no rash 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 The lungs and pleural spaces are otherwise clear. The heart size is normal. The aorta is tortuous and calcified. No significant interim change Impression: Left basilar atelectasis. No acute process otherwise Microbiology Date/Time Source Procedure Growth Status 07/15/18 15:30 Blood Blood Culture - Preliminary NO GROWTH AFTER 72 HOURS Resulted 07/15/18 17:37 Nasal Nares MRSA Culture - Final NO METHICILLIN RESISTANT STAPH AUREUS... Complete 07/16/18 18:00 Urine,Clean Catch Urine Culture - Final NO GROWTH AFTER 48 HOURS Complete 07/15/18 17:37 Rectum VRE Culture - Final NO VANCOMYCIN RESISTANT ENTEROCOCCUS ... Complete 07/15/18 17:37 Rectum - Final NO CARBAPENEM-RESISTANT ENTEROBACTERI... Complete Microbiology Date/Time Source Procedure Growth Status 07/16/18 18:00 Urine,Clean Catch Urine Culture - Final NO GROWTH AFTER 48 HOURS Complete Labs Test 07/17/18 03:16 07/17/18 18:00 07/18/18 06:31 07/19/18 04:02 White Blood Count 12.5 K/UL (4.8-10.8) 11.7 K/UL (4.8-10.8) Red Blood Count 4.25 M/UL (4.20-5.40) 4.30 M/UL (4.20-5.40) Hemoglobin 10.9 G/DL (12.0-16.0) 11.1 G/DL (12.0-16.0) Hematocrit 34.9 % (37.0-47.0) 35.1 % (37.0-47.0) Mean Corpuscular Volume 82 FL (80-99) 82 FL (80-99) Mean Corpuscular Hemoglobin 25.7 PG (27.0-31.0) 25.9 PG (27.0-31.0) Mean Corpuscular Hemoglobin Concent 31.3 G/DL (32.0-36.0) 31.8 G/DL (32.0-36.0) Red Cell Distribution Width 20.4 % (11.6-14.8) 20.9 % (11.6-14.8) Platelet Count 542 K/UL (150-450) 531 K/UL (150-450) Mean Platelet Volume 5.7 FL (6.5-10.1) 6.1 FL (6.5-10.1) Neutrophils (%) (Auto) 49.8 % (45.0-75.0) 54.5 % (45.0-75.0) Lymphocytes (%) (Auto) 38.7 % (20.0-45.0) 31.8 % (20.0-45.0) Monocytes (%) (Auto) 7.0 % (1.0-10.0) 7.6 % (1.0-10.0) Eosinophils (%) (Auto) 3.7 % (0.0-3.0) 4.9 % (0.0-3.0) Basophils (%) (Auto) 0.9 % (0.0-2.0) 1.2 % (0.0-2.0) Sodium Level 145 MMOL/L (136-145) 141 MMOL/L (136-145) Potassium Level 4.7 MMOL/L (3.5-5.1) 4.6 MMOL/L (3.5-5.1) Chloride Level 108 MMOL/L (98-107) 107 MMOL/L (98-107) Carbon Dioxide Level 31 MMOL/L (21-32) 29 MMOL/L (21-32) Anion Gap 6 mmol/L (5-15) 5 mmol/L (5-15) Blood Urea Nitrogen 16 mg/dL (7-18) 15 mg/dL (7-18) Creatinine 0.8 MG/DL (0.55-1.30) 0.8 MG/DL (0.55-1.30) Estimat Glomerular Filtration Rate > 60 mL/min (>60) > 60 mL/min (>60) Glucose Level 105 MG/DL (74-106) 99 MG/DL (74-106) Calcium Level 8.3 MG/DL (8.5-10.1) 8.2 MG/DL (8.5-10.1) Iron Level 122 ug/dL (50-175) Total Iron Binding Capacity 301 ug/dL (250-450) Percent Iron Saturation 41 % (15-50) Unsaturated Iron Binding 179 ug/dL (112-346) Ferritin 24 NG/ML (8-388) Vancomycin Level Trough 9.6 ug/mL (5.0-12.0) 17.7 ug/mL (5.0-12.0) Troponin I 0.000 ng/mL (0.000-0.056) Laboratory Tests Test 07/19/18 04:02 Vancomycin Level Trough 17.7 ug/mL (5.0-12.0) H Current Medications Medications (Trade) Dose Ordered Sig/Ashlyn Route PRN Reason Start Time Stop Time Status Last Admin Dose Admin Acetaminophen/ Hydrocodone Bitart ([place] 5/325) 1 tab Q4H PRN ORAL Moderate Breakthru Pain (5-7) 07/17/18 02:30 07/22/18 22:29 07/19/18 09:21 Albuterol Sulfate (Proventil MDI) 2 puff Q4H PRN INH Shortness of Breath 07/15/18 20:30 08/14/18 20:29 Atorvastatin Calcium (Lipitor) 10 mg DAILY ORAL 07/16/18 09:00 08/15/18 08:59 07/19/18 09:20 Clopidogrel Bisulfate (Plavix) 75 mg DAILY ORAL 07/16/18 09:00 08/15/18 08:59 07/19/18 09:20 Dextrose (Dextrose 50%) 25 ml Q30M PRN IV Hypoglycemia 07/15/18 20:45 08/14/18 20:44 Dextrose (Dextrose 50%) 50 ml Q30M PRN IV Hypoglycemia 07/15/18 20:45 08/14/18 20:44 Diazepam (Valium) 5 mg TIDPRN PRN ORAL ANXIETY 07/15/18 20:30 07/22/18 20:29 07/18/18 21:58 Diphenhydramine HCl (Benadryl) 25 mg Q6H PRN ORAL Itching 07/15/18 20:45 08/14/18 20:44 Docusate Sodium (Colace) 200 mg TWICE A DAY ORAL 07/16/18 09:00 08/15/18 08:59 07/19/18 09:20 Ferrous Sulfate (Feosol) 325 mg TWICE A DAY ORAL 07/16/18 09:00 08/15/18 08:59 07/19/18 09:21 Folic Acid (Folate) 1 mg DAILY ORAL 07/16/18 09:00 08/15/18 08:59 07/19/18 09:20 Hydroxychloroquine Sulfate (Plaquenil) 200 mg BID ORAL 07/16/18 09:00 08/15/18 08:59 07/19/18 09:20 Insulin Aspart (NovoLOG) BEFORE MEALS AND HS SUBQ 07/15/18 21:00 08/14/18 20:59 07/19/18 06:08 Methotrexate (metHOTREXate) 12.5 mg Sa@0900 ORAL 07/18/18 09:00 07/23/18 08:59 07/18/18 10:10 Vancomycin HCl (Vanco rx to dose) 1 ea DAILY PRN MISC Per rx protocol 07/15/18 20:00 08/14/18 19:59 Vancomycin HCl/ Dextrose 250 ml @ 166.667 mls/hr Q12H IVPB 07/17/18 17:00 07/22/18 16:59 07/19/18 04:56 Dipesh Lee MD Jul 19, 2018 14:32
[2018-07-19 16:00] VITALS: BP 129/76
--- NOTE | 2018-07-19 17:28 | General Progress Note ---
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 - Rheumatic fever without heart involvement SNOMED: 942212900 (2) CVA (cerebral vascular accident) ICD Codes: I63.9 - Cerebral infarction, unspecified SNOMED: 980476071 Qualifiers: Qualified Codes: I63.9 - Cerebral infarction, unspecified (3) Noncompliance ICD Codes: Z91.19 - Patient's noncompliance with other medical treatment and regimen SNOMED: 2726461 (4) COPD (chronic obstructive pulmonary disease) ICD Codes: J44.9 - Chronic obstructive pulmonary disease, unspecified SNOMED: 94269221 (5) Influenza A ICD Codes: J10.1 - Influenza due to other identified influenza virus with other respiratory manifestations SNOMED: 649344463 (6) Gram-positive bacteremia ICD Codes: R78.81 - Bacteremia SNOMED: 956104938706 (7) Diabetes ICD Codes: E11.9 - Type 2 diabetes mellitus without complications SNOMED: 91264797 Qualifiers: Qualified Codes: E11.9 - Type 2 diabetes mellitus without complications (8) HTN (hypertension) ICD Codes: I10 - Essential (primary) hypertension SNOMED: 48209845 Qualifiers: Qualified Codes: I10 - Essential (primary) hypertension Assessment/Plan #Staphylococcus capitis bacteremia - Resolving - change vancomycin to oral doxy - ID followup following - followup repeat blood cultures #Chest pain, chest wall tenderness - EKG negative - Provide symptomatic care but minimize narcotics. Discontinue Dilaudid. #Medical noncompliance -educated on compliance for over 16 mins -patient did not take antibiotics that she was discharged with as she was instructed to #HTN - stable - cont home meds #DM II - iss - accuchecks #Microcytic Anemia secondary to iron deficiency - stable - hematology following - no acute blood loss #CVA - old - stable - resume home asa, statin #RA - stable - hold MTX in the setting of acute infection #Smoker - Educated on smoking cessation for over 15 minutes - patient states she understands and is trying to quit - verbalizes that she will make more of an effort #COPD - stable - breathing well - breathing tx prn ppx: heparin, scd diet: Diabetic I have spent over 60 minutes regarding patient care and counseling and over 33 minutes of face to face time with the patient. Anticipate discharge tomorrow. Subjective Date patient seen: Jul 19, 2018 Time patient seen: 17:15 ROS Limited/Unobtainable: No Constitutional: Denies: chills, fever Cardiovascular: Denies: chest pain, edema Respiratory: Denies: cough, orthopnea Gastrointestinal/Abdominal: Denies: abdominal pain Genitourinary: Denies: burning, discharge Neurologic/Psychiatric: Denies: anxiety, depressed Allergies: Coded Allergies: No Known Allergies (Unverified , 05/15/18) Subjective Medicine follow up for gram positive bacteremia - no new complaints.Stable chest wall palpable tenderness Objective Last 24 Hour Vital Signs Date Time Temp Pulse Resp B/P (MAP) Pulse Ox O2 Delivery O2 Flow Rate FiO2 07/19/18 16:00 97.7 72 21 129/76 (93) 96 07/19/18 15:25 96.1 07/19/18 12:00 96.1 84 20 137/70 (92) 94 07/19/18 09:00 Room Air 07/19/18 08:00 98.2 89 20 128/62 (84) 98 07/19/18 04:00 99.2 78 19 136/78 (97) 99 07/19/18 00:00 98.6 82 19 144/70 (94) 98 07/18/18 21:00 Room Air 07/18/18 20:00 97.9 74 19 144/71 (95) 98 Intake and Output 07/18/18 07/19/18 18:59 06:59 Intake Total 1180 ml 250 ml Balance 1180 ml 250 ml Intake Oral 1180 ml 250 ml # Voids 6 2 # Bowel Movements 1 1 Laboratory Tests 07/19/18 04:02: Vancomycin Level Trough 17.7H Height (Feet): 5 Height (Inches): 4.00 Weight (Pounds): 140 General Appearance: no apparent distress, alert Neck: non-tender Cardiovascular: normal rate, regular rhythm Respiratory/Chest: lungs clear, other - Chest wall tenderness Abdomen: normal bowel sounds, non tender, soft Linus Nelson MD Jul 19, 2018 17:28
[2018-07-19 20:00] VITALS: BP 133/63
[2018-07-20] VITALS: BP 110/63
[2018-07-20] MEDS: Norco 5mg/325mg tab ORAL PRN ×2 (03:30→08:08)
[2018-07-20 04:00] VITALS: BP 129/73
[2018-07-20] MEDS: NovoLOG Insulin Flexpen SUBQ SCH (05:59)
[2018-07-20 06:28] LABS: BASOPHILS % (AUTO) 0.8 % (0.0-2.0); EOSINOPHILS % (AUTO) 5.5 % (0.0-3.0); HEMOGLOBIN 10.8 G/DL (12.0-16.0); MEAN CORPUSCULAR VOLUME 83 FL (80-99); MONOCYTES % (AUTO) 7.8 % (1.0-10.0); PLATELET COUNT 539 K/UL (150-450); RED BLOOD COUNT 4.11 M/UL (4.20-5.40); RED CELL DISTRIBUTION WIDTH 20.7 % (11.6-14.8); WHITE BLOOD COUNT 10.6 K/UL (4.8-10.8)
[2018-07-20 06:51] LABS: ANION GAP 8 mmol/L (5-15); BLOOD UREA NITROGEN 9 mg/dL (7-18); CALCIUM 8.7 MG/DL (8.5-10.1); CARBON DIOXIDE 29 MMOL/L (21-32); CHLORIDE 104 MMOL/L (98-107); CREATININE 0.8 MG/DL (0.55-1.30); POTASSIUM 4.3 MMOL/L (3.5-5.1); SODIUM 141 MMOL/L (136-145)
--- NOTE | 2018-07-20 07:15 | General Progress Note ---
Assessment/Plan Assessment/Plan ASSESSMENT AND RECOMMENDATIONS # Leukocytosis. Secondary to sepsis staph capitis, bacteremia in setting of methotrexate and immunocompromised state --> Peripheral has been ordered, no blasts, abnml cells noted --> Medications have been reviewed --> Imaging has been reviewed, reveals left basilar atelectasis --> Blood cultures are positive from outside, have been repeated --> has been started on abx, empiric treatment # Anemia of iron deficiency ferritin 31 last admission --> Current Hgb >11, no w/u required at this time. --> Cont to monitor for stability --> ANEMIA PANEL HAS BEEN ORDERED again # Thrombocytosis - likely related to underlying infection/reactive process --> Continue to monitor for improvement --> Trend CBC as needed --> If continues to be elevated, consider to send for TIKI-2 --> Smear reviewed and no abnormalities noted and manual smear has been reviewed # Gram Positive Bacteremia/sepsis --> WBC 14, RR 21, gram pos cocci on bcx --> gram positive cocci in 2 out of 2 bcx, returned positive once patient was dc 'd home however patient also did not take the antibiotics she was prescribed -- >repeat blood cx x 2 --> vanco and IVF --> as per ID recs # Noncompliance --> educated on compliance for over 16 mins --> patient did not take antibiotics that she was discharged with as she was instructed to # HTN --> stable --> cont home meds # DM II --> iss --> accuchecks # CVA. --> stable --> resume home asa, statin GREATLY APPRECIATE CONSULTATION Subjective Constitutional: Denies: no symptoms, chills, diaphoresis, fever, malaise, weakness, other HEENT: Denies: no symptoms, eye pain, blurred vision, tearing, double vision, ear pain, ear discharge, nose pain, nose congestion, throat pain, throat swelling, mouth pain, mouth swelling, other Cardiovascular: Denies: no symptoms, chest pain, edema, irregular heart rate, lightheadedness, palpitations, syncope, other Respiratory: Denies: no symptoms, cough, orthopnea, shortness of breath, SOB with excertion, SOB at rest, sputum, stridor, wheezing, other Gastrointestinal/Abdominal: Denies: no symptoms, abdomen distended, abdominal pain, black stools, tarry stools, blood in stool, constipated, diarrhea, difficulty swallowing, nausea, poor appetite, poor fluid intake, rectal bleeding , vomiting, other Genitourinary: Denies: no symptoms, burning, discharge, frequency, flank pain, hematuria, incontinence, pain, urgency, other Neurologic/Psychiatric: Denies: no symptoms, anxiety, depressed, emotional problems, headache, numbness, paresthesia, pre-existing deficit, seizure, tingling, tremors, weakness, other Endocrine: Denies: no symptoms, excessive sweating, flushing, intolerance to cold, intolerance to heat, increased hunger, increased thirst, increased urine, unexplained weight gain, unexplained weight loss, other Hematologic/Lymphatic: Denies: no symptoms, anemia, easy bleeding, easy bruising, other Allergies: Coded Allergies: No Known Allergies (Unverified , 05/15/18) Subjective no fevers or chills, on abx, some pain in back this am, just took norco 2 hours ago Objective Last 24 Hour Vital Signs Date Time Temp Pulse Resp B/P (MAP) Pulse Ox O2 Delivery O2 Flow Rate FiO2 07/20/18 04:00 97.8 77 19 129/73 (91) 98 07/20/18 00:00 97.6 113 20 110/63 (79) 97 07/19/18 21:00 Room Air 07/19/18 20:00 97.7 87 20 133/63 (86) 95 07/19/18 16:00 97.7 72 21 129/76 (93) 96 07/19/18 15:25 96.1 07/19/18 12:00 96.1 84 20 137/70 (92) 94 07/19/18 09:00 Room Air 07/19/18 08:00 98.2 89 20 128/62 (84) 98 Intake and Output 07/19/18 07/20/18 18:59 06:59 Intake Total 1600 ml 450 ml Balance 1600 ml 450 ml Intake Oral 1600 ml 450 ml # Voids 4 6 Laboratory Tests 07/20/18 06:00: White Blood Count 10.6, Red Blood Count 4.11L, Hemoglobin 10.8L, Hematocrit 34.0L, Mean Corpuscular Volume 83, Mean Corpuscular Hemoglobin 26.2L, Mean Corpuscular Hemoglobin Concent 31.7L, Red Cell Distribution Width 20.7H, Platelet Count 539H, Mean Platelet Volume 6.4L, Neutrophils (%) (Auto) 57.0, Lymphocytes (%) (Auto) 29.0, Monocytes (%) (Auto) 7.8, Eosinophils (%) (Auto) 5.5H, Basophils (%) (Auto) 0.8, Sodium Level 141, Potassium Level 4.3, Chloride Level 104, Carbon Dioxide Level 29, Anion Gap 8, Blood Urea Nitrogen 9, Creatinine 0.8, Estimat Glomerular Filtration Rate > 60, Glucose Level 109H, Calcium Level 8.7 Height (Feet): 5 Height (Inches): 4.00 Weight (Pounds): 140 General Appearance: lethargic EENT: TMs normal Neck: supple Cardiovascular: no JVD Respiratory/Chest: normal breath sounds Abdomen: no mass Extremities: non-tender Edema: mild edema Neurologic: alert Skin: warm/dry Lauro Cai MD Jul 20, 2018 07:15
[2018-07-20 07:30] LABS: % IRON SATURATION 18 % (15-50); IRON 55 ug/dL (50-175); TOTAL IRON BINDING CAPACITY 305 ug/dL (250-450)
[2018-07-20 07:45] LABS: FERRITIN 51 NG/ML (8-388)
[2018-07-20 08:00] VITALS: BP 132/69
[2018-07-20] MEDS: Docusate 100mg cap ORAL SCH (08:09)
[2018-07-20] MEDS ORDERED: DOXYCYCLINE HY100 M2 ORAL (08:46)
--- NOTE | 2018-07-20 08:59 | Discharge Summary ---
Discharge Summary Hospital Course Date of Admission Jul 15, 2018 at 17:00 Date of Discharge 07/20/18 Admitting Diagnosis POSITIVE BLOOD CULTURE,GRAM POSITIVE COCCI HPI Shae Chavis is a 63 year old female who was admitted on Jul 15, 2018 at 17:00 for Positive Blood Culture, Gram Positive Cocci patient returned to the ED due to positive blood cultures, patient did not take medications/antibiotics at home as was instructed, returned to the ED septic. was started on broad spectrum antibiotics on admit repeat bcx ngtd tte done,reviewed, wnl, normal EF patient did well ID consulted, rec switch to PO doxy. Physical Exam: General Appearance: WD/WN, no apparent distress, alert EENT: PERRL/EOMI, normal ENT inspection, TMs normal, pharynx normal Neck: non-tender, normal alignment, supple Cardiovascular: normal peripheral pulses, normal rate, regular rhythm Respiratory/Chest: chest wall non-tender, lungs clear, normal breath sounds, no respiratory distress, no accessory muscle use Abdomen: normal bowel sounds, non tender, soft, no organomegaly, no mass Extremities: normal range of motion, non-tender, normal inspection, no calf tenderness Neurologic: air quality specialist II-XII grossly normal, no motor/sensory deficits, alert, oriented x 3, responsive, normal mood/affect Skin: normal pigmentation, warm/dry Hospital Course #Gram Positive Sepsis #Staphylococcus capitis bacteremia - Resolving - changed vancomycin to oral doxy - appreciate ID recs - repeat bcx ngtd - dc with Po doxy #Chest pain, chest wall tenderness - EKG negative - TTE reviewed, wnl - Provide symptomatic care but minimize narcotics. Discontinue Dilaudid. #Medical noncompliance -educated on compliance for over 15 mins -patient did not take antibiotics that she was discharged with as she was instructed to #HTN - stable - cont home meds #DM II - iss - accuchecks #Microcytic Anemia secondary to iron deficiency - stable - hematology following - no acute blood loss #CVA - old - stable - resume home asa, statin #RA - stable - hold MTX in the setting of acute infection #Smoker - Educated on smoking cessation for over 15 minutes - patient states she understands and is trying to quit - verbalizes that she will make more of an effort #COPD - stable - breathing well - breathing tx prn ppx: heparin, scd diet: Diabetic I have spent over 40 minutes regarding patient care and counseling and discharge planning dc home today patient stable and is able to verbalize back to be plan of care and reason for admission Discharge Medications New Medications: Doxycycline Hyclate (Doxycycline Hyclate) 100 Mg Capsule 100 MG ORAL EVERY 12 HOURS for 4 Days, #8 CAP Continued Medications: Albuterol Sulfate* (Albuterol Sulfate Mdi*) 8.5 Gm Hfa.aer.ad 2 PUFF INH Q4H PRN for Shortness of Breath for 30 Days, #100 INH Amitriptyline HCl (Elavil*) 75 Mg Tablet 75 MG ORAL BEDTIME, TAB (This prescription has been renewed) Atorvastatin Calcium* (Lipitor*) 10 Mg Tablet 10 MG ORAL DAILY, #30 TAB 0 Refills (This prescription has been renewed) Clopidogrel* (Clopidogrel*) 75 Mg Tablet 75 MG ORAL DAILY, TAB (This prescription has been renewed) Diazepam* (Valium*) 5 Mg Tablet 5 MG ORAL TID PRN for ANXIETY, #15 TAB 0 Refills Docusate Sodium* (Docusate Sodium*) 100 Mg Capsule 200 MG ORAL TWICE A DAY, CAP (This prescription has been renewed) Ferrous Sulfate* (Ferrous Sulfate*) 325 Mg Tablet 325 MG ORAL TWICE A DAY, #60 TAB 0 Refills (This prescription has been renewed) Folic Acid* (Folic Acid*) 1 Mg Tablet 1 MG ORAL 6xwk for methotrexate MONIE, TAB (This prescription has been renewed) Hydrocodone Bit/Acetaminophen 10-325* ([place] 10-325*) 1 Each Tablet 2 TAB ORAL Q4H PRN for For Pain for 7 Days, #20 TAB PRN PAIN Hydroxychloroquine Sulfate (Hydroxychloroquine Sulfate) 200 Mg Tablet 200 MG PO BID, TAB (This prescription has been renewed) Ipratropium/Albuterol Sulfate (DuoNeb 0.5-3(2.5)mg/3ml) 3 Ml Ampul.neb 3 ML HHN Q4H PRN for 30 Days, #1 EA Metformin Hcl* (Metformin Hcl*) 1,000 Mg Tablet 1000 MG ORAL BID, TAB (This prescription has been renewed) Methotrexate Sodium* (Methotrexate*) 2.5 Mg Tablet 12.5 MG PO qSaturday, TAB (This prescription has been renewed) Nystatin (Nystatin) 1 Each Powder.ea. 1 EACH MC BID for 10 Days, #1 EA Discontinued Medications: Azithromycin (Azithromycin) 500 Mg Tablet 500 MG ORAL DAILY for 3 Days, #3 TAB Oseltamivir Phosphate (Tamiflu) 75 Mg Capsule 75 MG ORAL Q12HR for 3 Days, #6 CAP Prednisone* (Prednisone*) 20 Mg Tablet 40 MG ORAL DAILY for 7 Days, #7 TAB Discharge Condition Upon Discharge: improving, stable Discharge Disposition Patient was discharged to home f/u with pcp in 1 week Discharge Diagnoses: (1) Gram-positive bacteremia (2) Diabetes (3) HTN (hypertension) (4) Rheumatoid arteritis (5) CVA (cerebral vascular accident) (6) Noncompliance (7) COPD (chronic obstructive pulmonary disease) (8) Constipation (9) GENERALIZED ABDOMINAL PAIN (10) Microcytic anemia (11) Gram positive sepsis (12) Influenza A (13) Positive blood culture (14) Leukocytosis Jie Solitario MD Jul 20, 2018 08:59
--- NOTE | 2018-07-20 11:08 | Cardiology Report ---
APPROVED REPORT EXAM: Two-dimensional and M-mode echocardiogram with Doppler and color Doppler. INDICATION [employer] M-Mode DIMENSIONS IVSd1.1 (0.7-1.1cm)Left Atrium (MM)3.4 (1.6-4.0cm) LVDd5.4 (3.5-5.6cm)Aortic Root2.9 (2.0-3.7cm) PWd1.4 (0.7-1.1cm)Aortic Cusp Exc.1.6 (1.5-2.0cm) IVSs1.2 cm LVDs3.8 (2.5-4.0cm) PWs2.0 cm Normal left ventricular chamber size, systolic function and wall motion. Left ventricular ejection fraction estimated to be 60-65%. No evidence of ventricular hypertrophy . No evidence of pericardial effusion. Left atrial size at upper limits of normal. Right cardiac chamber sizes are within normal limits. Focal aortic valve sclerosis with adequate cusp excursion. Mildly Thickened mitral valve leaflets with normal excursion. pulmonic valve not well visualized. Normal tricuspid valve structure. IVC at normal size with physiological collapse . A color flow and spectral Doppler study was performed and revealed: No aortic regurgitation. Trace mitral regurgitation. Mitral diastolic velocities suggest reduced left ventricular relaxation c/w mild LV diastolic dysfunction (Grade I ). Trace to mild tricuspid regurgitation. Tricuspid systolic velocities suggests peak right ventricular systolic pressure of 33mmHg,consistent with mild pulmonary hypertension .
== END 2018-07-20 10:45 | disposition home or self-care (01) | DRG 720 ==
LOC: EMR 16:24 → EDBEDREQ 16:50 → 4E 17:00 → EDBEDREQ 17:17
DX: A41.1 Sepsis due to other specified staphylococcus (principal); D50.9 Iron deficiency anemia, unspecified; E11.9 Type 2 diabetes mellitus without complications; I10 Essential (primary) hypertension; F17.200 Nicotine dependence, unspecified, uncomplicated; J10.1 Influenza due to other identified influenza virus with other respiratory manifestations; M06.9 Rheumatoid arthritis, unspecified; Z86.73 Personal history of transient ischemic attack (TIA), and cerebral infarction without residual deficits; J44.9 Chronic obstructive pulmonary disease, unspecified; K59.00 Constipation, unspecified; R10.9 Unspecified abdominal pain; Z91.14 Patient's other noncompliance with medication regimen; Z79.02 Long term (current) use of antithrombotics/antiplatelets; Z79.4 Long term (current) use of insulin
CPT/HCPCS: 36415; 71045; 80048; 80053; 80202; 81003; 82728; 82962; 83540; 83550; 83605; 84484; 85025; 87040; 87081; 87086; 93005; 93306; 96365; 96375; 96376; 99285; J1815